=== PATIENT | male | born 1930 | race Caucasian/White ===

== ENCOUNTER 2016-08-11 15:33 | Emergency (ER) | payer MEDICARE, BC ==
[~2016-08-11] VITALS: Ht 170.2 cm; Wt 106.8 kg
[~2016-08-11 15:33] MED LIST: AMLOPIDINE PO; ANUSOL-HC SUPPO25 MG RC; ASPIR-LOW81 MG PO; ASPIRIN 32325 MG/TAB; ASPIRIN 81M81 MG/TA2 PO; BACTRIM 400 MG-1 TAB PO; CELEBREX 200MG200 MG PO; COUMADIN 22.5 MG/TAB; COUMADIN 22.5 MG/TAB PO; COUMADIN 5MG5 MG/TAB PO; COZAAR 50MG50 MG/TAB PO; COZAAR100 MG PO; FLONASE NASAL S16 GM NS; K-LOR CON PO; LASIX 40MG TABL40 MG PO; LORTAB 7.5/5001 TAB PO; MULTIPLE VITAMI1 TAB PO; MVI PO; NASONEX0.05 MG/AC NS; NORCO 325 MG-7.1 TAB; NORMODYNE100 MG PO; NORVASC 5MG5 MG/TAB PO; PACERONE100 MG PO; PACERONE200 MG PO; PIROXICAM PO; PRIL40; PRILOSEC 20MG20 MG PO; ROXICODONE 55 MG/TAB; TYLENOL #3 301 UDTAB PO
[2016-08-11 15:38] VITALS: TEMP 98.1
[2016-08-11 16:13] LABS: BASO # 0.1 (0.0-0.2); BASO % 0.6 % (0.0-2.0); EOS # 0.2 (0.0-0.7); EOS % 1.7 % (0-4.0); GRAN # 8.5 (1.4-6.5); GRAN % 78.4 % (42.2-75.2); HEMATOCRIT 45.6 % (42.0-52.0); HEMOGLOBIN 15.3 g/dl (13.5-18.0); LYMPH # 1.2 (1.2-3.4); LYMPH % 11.1 % (20.0-51.0); MEAN CELL VOLUME 96 fl (80.0-100.0); MEAN CORPUSCULAR HEMOGLOBIN 32 pg (27.0-31.0); MEAN CORPUSCULAR HGB CONC 34 g/dl (33.0-37.0); MEAN PLATELET VOLUME 11.3 fl (7.4-10.4); MONO # 0.8 (0.1-0.6); MONO % 7.5 % (1.7-9.3); PLATELET COUNT 137 K/mm3 (130-400); RED BLOOD COUNT 4.74 M/mm3 (4.20-5.60); REDCELL DISTRIBUTION WIDTH-CV 13.1 % (11.5-14.5); WHITE BLOOD COUNT 10.9 K/mm3 (4.8-10.8)
[2016-08-11 16:15] LABS: INR 2.3 (0.8-3.0); PROTHROMBIN TIME 26.1 SECONDS (9.7-12.8)
[2016-08-11 16:24] LABS: ALBUMIN 4.1 gm/dL (3.5-5.0); BILIRUBIN,TOTAL 1.3 mg/dL (0.0-1.0); CALCIUM 9.1 mg/dL (8.4-10.2); CREATININE, serum 1.49 mg/dL (0.66-1.25); POTASSIUM 4.3 mmol/L (3.4-5.0); TOTAL PROTEIN 7.1 gm/dL (6.4-8.2)
[2016-08-11 16:36] LABS: TROPONIN-I 0.033 ng/mL (0.000-0.034)
[2016-08-11] MEDS ORDERED: NORVASC 5MG5 MG/TAB PO (17:21)
[2016-08-11] MEDS ORDERED: CORDARONE200 MG/TAB PO (17:21)
[2016-08-11] MEDS ORDERED: ZYRTEC 10MG10 MG PO (17:22)
[2016-08-11] MEDS ORDERED: TRANDATE 200MG200 MG PO (17:23)
[2016-08-11] MEDS ORDERED: KLOR-CON M2020 MEQ PO (17:23)
[2016-08-11] MEDS ORDERED: COZAAR 50MG50 MG/TAB PO (17:24)
[2016-08-11] MEDS ORDERED: PROAIR HFA0.09 MG/AC IH (17:24)
[2016-08-11] MEDS ORDERED: SINGULAIR 110 MG/TAB PO (17:24)
[2016-08-11] MEDS ORDERED: SYNTHROID0.05 MG/TA PO (17:24)
[2016-08-11] MEDS ORDERED: FLOMAX 0.40.4 MG/CAP PO (17:25)
[2016-08-11] MEDS ORDERED: DEMADEX 20MG20 M1 PO (17:25)
[2016-08-11] MEDS ORDERED: COUMADIN 22.5 MG/TAB PO (17:26)
[2016-08-11 18:05] VITALS: BP 145/66; PULSE 66
== END 2016-08-11 18:34 | disposition home or self-care (01) ==
LOC: COL.ER 15:33
PROVIDERS: Emergency Medicine
DX: S20.211A Contusion of right front wall of thorax, initial encounter (principal); S70.02XA Contusion of left hip, initial encounter; S80.02XA Contusion of left knee, initial encounter; S60.511A Abrasion of right hand, initial encounter; I10 Essential (primary) hypertension; M19.90 Unspecified osteoarthritis, unspecified site; I48.91 Unspecified atrial fibrillation; Z79.01 Long term (current) use of anticoagulants; Z95.0 Presence of cardiac pacemaker; Z95.4 Presence of other heart-valve replacement; Z96.652 Presence of left artificial knee joint; V43.52XA Car driver injured in collision with other type car in traffic accident, initial encounter; Y93.I9 Activity, other involving external motion
CPT/HCPCS: A9284; J2270; Q9967

== ENCOUNTER → 2016-08-19 | Outpatient (CLI) | payer MEDICARE, BC ==
[~2016-08-19] MED LIST changes: +BROVANA15 MCG/2 M IH; +CLEOCIN HCL300 MG PO; +CORDARONE200 MG/TAB PO; +DEMADEX 20MG20 M1 PO; +DOXYCYCLINE 10100 MG PO; +FLOMAX 0.40.4 MG/CAP PO; +KLOR-CON M2020 MEQ PO; +MULTIVITAMIN SEN; +NORCO 325 MG-51 TAB PO; +PROAIR HFA0.09 MG/AC IH; +SINGULAIR 110 MG/TAB PO; +SYNTHROID0.05 MG/TA PO; +TRANDATE 200MG200 MG PO; +ZYRTEC 10MG10 MG PO
== END ==
LOC: COL.VAS 11:01
DX: M79.89 Other specified soft tissue disorders (principal)

== ENCOUNTER 2016-08-21 10:45 | Inpatient (IN) | payer OTHER, MEDICARE, BC ==
[~2016-08-21] VITALS: Ht 170.2 cm; Wt 100.7 kg
[~2016-08-21 10:45] MED LIST changes: -BROVANA15 MCG/2 M IH; -CLEOCIN HCL300 MG PO; -DOXYCYCLINE 10100 MG PO; -MULTIVITAMIN SEN; -NORCO 325 MG-51 TAB PO
[2016-08-21 12:18] VITALS: BP 101/50; PULSE 60; TEMP 98
[2016-08-21] MEDS ORDERED: MULTIVITAMIN SEN (12:19)
[2016-08-21] MEDS ORDERED: ASPIRIN 81M81 MG/TA2 PO (12:19)
[2016-08-21] MEDS ORDERED: BROVANA15 MCG/2 M IH (12:20)
[2016-08-21] MEDS ORDERED: FLONASE NASAL S16 GM NS (12:21)
[2016-08-21] MEDS ORDERED: NORCO 325 MG-51 TAB PO (12:23)
[2016-08-21 16:00] VITALS: BP 109/41; PULSE 62; TEMP 98.1
[2016-08-21 16:22] LABS: BASO % 0.5 % (0.0-2.0); EOS # 0.3 (0.0-0.7); EOS % 3.1 % (0-4.0); GRAN # 6.1 (1.4-6.5); GRAN % 70.5 % (42.2-75.2); LYMPH # 1.2 (1.2-3.4); LYMPH % 13.7 % (20.0-51.0); MEAN CELL VOLUME 97 fl (80.0-100.0); MEAN CORPUSCULAR HGB CONC 34 g/dl (33.0-37.0); MEAN PLATELET VOLUME 10.8 fl (7.4-10.4); MONO % 11.7 % (1.7-9.3); PLATELET COUNT 168 K/mm3 (130-400); RED BLOOD COUNT 3.48 M/mm3 (4.20-5.60); REDCELL DISTRIBUTION WIDTH-CV 13.3 % (11.5-14.5); WHITE BLOOD COUNT 8.6 K/mm3 (4.8-10.8)
[2016-08-21 16:29] LABS: HEMATOCRIT 33.7 % (42.0-52.0); HEMOGLOBIN 11.3 g/dl (13.5-18.0); MEAN CORPUSCULAR HEMOGLOBIN 32 pg (27.0-31.0)
[2016-08-21 16:32] LABS: INR 4.4 (0.8-3.0)
[2016-08-21 16:38] LABS: ADJUSTED CALCIUM 8.7 mg/dL (8.4-10.2); ALBUMIN 3.4 gm/dL (3.5-5.0); BILIRUBIN,TOTAL 1.3 mg/dL (0.0-1.0); CALCIUM 8.2 mg/dL (8.4-10.2); CREATININE, serum 2.31 mg/dL (0.66-1.25); POTASSIUM 4.5 mmol/L (3.4-5.0); TOTAL PROTEIN 6.3 gm/dL (6.4-8.2)
[2016-08-21 16:51] LABS: PROTHROMBIN TIME 51.6 SECONDS (9.7-12.8)
[2016-08-21 16:52] LABS: TROPONIN-I 0.046 ng/mL (0.000-0.034)
[2016-08-21 19:17] VITALS: BP 127/50; PULSE 60; TEMP 98.6
[2016-08-21 22:33] VITALS: BP 129/52; PULSE 63; TEMP 98.5
[2016-08-22 02:27] VITALS: BP 133/55; PULSE 71; TEMP 97.7
[2016-08-22 07:05] LABS: MEAN CELL VOLUME 99 fl (80.0-100.0); MEAN CORPUSCULAR HGB CONC 33 g/dl (33.0-37.0); MEAN PLATELET VOLUME 10.8 fl (7.4-10.4); PLATELET COUNT 163 K/mm3 (130-400); RED BLOOD COUNT 3.45 M/mm3 (4.20-5.60); REDCELL DISTRIBUTION WIDTH-CV 13.3 % (11.5-14.5); WHITE BLOOD COUNT 7.2 K/mm3 (4.8-10.8)
[2016-08-22 07:06] LABS: INR 4.7 (0.8-3.0)
[2016-08-22 07:07] LABS: HEMOGLOBIN 11.3 g/dl (13.5-18.0); MEAN CORPUSCULAR HEMOGLOBIN 33 pg (27.0-31.0)
[2016-08-22 07:11] LABS: PROTHROMBIN TIME 54.7 SECONDS (9.7-12.8)
[2016-08-22 07:27] LABS: CREATININE, serum 2.05 mg/dL (0.66-1.25); POTASSIUM 4.1 mmol/L (3.4-5.0)
[2016-08-22 08:02] VITALS: BP 128/61; PULSE 77; TEMP 98
[2016-08-22 12:21] VITALS: BP 112/50; PULSE 59; TEMP 97.5
[2016-08-22 16:08] VITALS: BP 119/45; PULSE 62; TEMP 98.2
[2016-08-22 19:37] VITALS: BP 150/59; PULSE 68; TEMP 98.2
[2016-08-22 22:38] VITALS: BP 126/50; PULSE 66; TEMP 98.9
[2016-08-23 03:17] VITALS: BP 134/55; PULSE 65; TEMP 98.4
[2016-08-23 03:36] LABS: MEAN CELL VOLUME 98 fl (80.0-100.0); MEAN CORPUSCULAR HGB CONC 33 g/dl (33.0-37.0); MEAN PLATELET VOLUME 10.3 fl (7.4-10.4); PLATELET COUNT 163 K/mm3 (130-400); RED BLOOD COUNT 3.56 M/mm3 (4.20-5.60); REDCELL DISTRIBUTION WIDTH-CV 13.2 % (11.5-14.5); WHITE BLOOD COUNT 8.4 K/mm3 (4.8-10.8)
[2016-08-23 03:41] LABS: HEMATOCRIT 34.9 % (42.0-52.0); HEMOGLOBIN 11.6 g/dl (13.5-18.0); MEAN CORPUSCULAR HEMOGLOBIN 33 pg (27.0-31.0)
[2016-08-23 04:03] LABS: CALCIUM 8.1 mg/dL (8.4-10.2); CREATININE, serum 1.59 mg/dL (0.66-1.25); POTASSIUM 4.3 mmol/L (3.4-5.0)
[2016-08-23 04:08] LABS: VANCOMYCIN TROUGH 18.66 ug/mL (7.00-20.00)
[2016-08-23 07:57] VITALS: BP 111/62; PULSE 65; TEMP 98.1
[2016-08-23 10:22] LABS: INR 3.2 (0.8-3.0); PROTHROMBIN TIME 37.2 SECONDS (9.7-12.8)
[2016-08-23 11:18] VITALS: BP 119/47; PULSE 60; TEMP 98.7
[2016-08-23 16:29] VITALS: BP 127/51; PULSE 66; TEMP 98.1
[2016-08-23 19:33] VITALS: BP 128/52; PULSE 69; TEMP 98.3
[2016-08-23 23:10] VITALS: BP 110/51; PULSE 59; TEMP 98.5
[2016-08-24 03:18] VITALS: BP 121/59; PULSE 76; TEMP 98.7
[2016-08-24 07:05] LABS: BASO % 0.5 % (0.0-2.0); EOS # 0.3 (0.0-0.7); EOS % 3.2 % (0-4.0); GRAN # 5.9 (1.4-6.5); GRAN % 73.3 % (42.2-75.2); LYMPH % 12.1 % (20.0-51.0); MEAN CELL VOLUME 98 fl (80.0-100.0); MEAN CORPUSCULAR HEMOGLOBIN 33 pg (27.0-31.0); MEAN CORPUSCULAR HGB CONC 33 g/dl (33.0-37.0); MEAN PLATELET VOLUME 10.5 fl (7.4-10.4); MONO # 0.8 (0.1-0.6); MONO % 10.4 % (1.7-9.3); PLATELET COUNT 194 K/mm3 (130-400); RED BLOOD COUNT 3.69 M/mm3 (4.20-5.60); REDCELL DISTRIBUTION WIDTH-CV 13.1 % (11.5-14.5)
[2016-08-24 07:24] LABS: CALCIUM 8.4 mg/dL (8.4-10.2); CREATININE, serum 1.59 mg/dL (0.66-1.25); POTASSIUM 3.5 mmol/L (3.4-5.0)
[2016-08-24 07:43] VITALS: BP 138/57; PULSE 78; TEMP 98
[2016-08-24] MEDS ORDERED: NORMODYNE100 MG PO (10:01)
[2016-08-24] MEDS ORDERED: DOXYCYCLINE 10100 MG PO ×2 (10:01→13:13)
[2016-08-24 11:08] LABS: INR 2.7 (0.8-3.0); PROTHROMBIN TIME 30.8 SECONDS (9.7-12.8)
[2016-08-24 11:29] VITALS: BP 105/50; PULSE 60; TEMP 97.9
[2016-08-24] MEDS ORDERED: COUMADIN 22.5 MG/TAB PO (11:52)
[2016-08-24] MEDS ORDERED: CLEOCIN HCL300 MG PO (11:53)
== END 2016-08-24 15:10 | disposition home or self-care (01) | DRG 603 ==
LOC: MEDICAL 10:45
PROVIDERS: Internal Medicine
DX: L03.116 Cellulitis of left lower limb (principal); J96.11 Chronic respiratory failure with hypoxia; N17.9 Acute kidney failure, unspecified; E87.1 Hypo-osmolality and hyponatremia; I87.8 Other specified disorders of veins; I10 Essential (primary) hypertension; J44.9 Chronic obstructive pulmonary disease, unspecified; G47.33 Obstructive sleep apnea (adult) (pediatric); R07.89 Other chest pain; E86.1 Hypovolemia; Z95.0 Presence of cardiac pacemaker; Z95.2 Presence of prosthetic heart valve; Z96.653 Presence of artificial knee joint, bilateral; S80.02XD Contusion of left knee, subsequent encounter; V43.52XD Car driver injured in collision with other type car in traffic accident, subsequent encounter; Z79.01 Long term (current) use of anticoagulants
CPT/HCPCS: 99223-AI; 99233-AI; 99239; J1940; J3370; J7030; J7050

== ENCOUNTER 2018-10-08 09:43 | Inpatient (IN) | payer MEDICARE, BC ==
[~2018-10-08] VITALS: Ht 170.2 cm; Wt 106.5 kg
[~2018-10-08 09:43] MED LIST changes: +BROVANA15 MCG/2 M IH; +CLEOCIN HCL300 MG PO; +DOXYCYCLINE 10100 MG PO; +MULTIVITAMIN SEN; +NORCO 325 MG-51 TAB PO; +TRANDATE 100MG100 MG PO
[2018-10-08 10:14] LABS: BASO # 0.1 (0.0-0.2); BASO % 0.7 % (0.0-2.0); EOS # 0.3 (0.0-0.7); EOS % 3.6 % (0-4.0); GRAN # 4.8 (1.4-6.5); GRAN % 70.2 % (42.2-75.2); HEMOGLOBIN 11.5 g/dl (13.5-18.0); LYMPH # 0.9 (1.2-3.4); LYMPH % 13.4 % (20.0-51.0); MEAN CELL VOLUME 100 fl (80.0-100.0); MEAN CORPUSCULAR HEMOGLOBIN 32 pg (27.0-31.0); MEAN CORPUSCULAR HGB CONC 32 g/dl (33.0-37.0); MEAN PLATELET VOLUME 11.2 fl (7.4-10.4); MONO # 0.8 (0.1-0.6); MONO % 11.8 % (1.7-9.3); PLATELET COUNT 152 K/mm3 (130-400); RED BLOOD COUNT 3.61 M/mm3 (4.20-5.60); REDCELL DISTRIBUTION WIDTH-CV 14.6 % (11.5-14.5)
[2018-10-08 10:15] LABS: INR 1.6 (0.8-3.0)
[2018-10-08 10:18] LABS: PARTIAL THROMBOPLASTIN TIME 37.8 SECONDS (26.0-37.0)
[2018-10-08 10:19] LABS: ALBUMIN 3.6 gm/dL (3.5-5.0); CALCIUM 8.9 mg/dL (8.4-10.2); CREATININE, serum 1.94 (0.66-1.25); POTASSIUM 3.9 mmol/L (3.4-5.0); TOTAL PROTEIN 6.6 gm/dL (6.4-8.2)
[2018-10-08 10:31] LABS: TROPONIN-I 0.025 ng/mL (0.000-0.035)
--- NOTE | 2018-10-08 14:20 | NUR ---
PATIENT ORIENTED TO ROOM 312. HE WILL CALL FOR ASSISTANCE. I DID PUT BED ALARM ON JUST TO VERIFY HIM TO CALL
[2018-10-08 14:24] VITALS: BP 130/57; PULSE 60; TEMP 98
[2018-10-08 16:00] VITALS: BP 141/59; PULSE 61; TEMP 98.3
[2018-10-08 20:07] VITALS: BP 119/50; PULSE 60; TEMP 98.2
--- NOTE | 2018-10-08 20:50 | NUR ---
PT SITTING IN CHAIR. A+OX4. REPORTS MINIMAL PAIN. BOWEL SOUNDS HEARD THROUGHOUT. NORMAL HEART RRR. LEFT LUNG BASE- FINE CRACKLES. RIGHT LUNG BASE COURSE CRACKLES. UPPER LUNGS CLEAR. NO SOA AT THIS TIME. NO N/V. 3+ PITTING EDEMA IN BILAT LEGS. BLUE/RED DISCOLORATION NOTED ON BILAT SHINS/CALVES- PT "NORMAL". FEET ARE ELEVATED. FLUID RESTRICTION IN PLACE. REPORTS NO NEEDS AT THIS TIME. CALL LIGHT IN REACH
--- NOTE | 2018-10-08 22:09 | NUR ---
IV FLUSHES WELL, NO REDNESS, NO SWELLING.
[2018-10-08 23:48] VITALS: BP 120/59; PULSE 60; TEMP 97.4
[2018-10-09 03:33] VITALS: BP 128/62; PULSE 58; TEMP 97.9
[2018-10-09 07:01] LABS: BASO # 0.1 (0.0-0.2); BASO % 0.8 % (0.0-2.0); EOS # 0.3 (0.0-0.7); GRAN % 66.3 % (42.2-75.2); HEMOGLOBIN 11.7 g/dl (13.5-18.0); LYMPH # 1.3 (1.2-3.4); LYMPH % 17.4 % (20.0-51.0); MEAN CELL VOLUME 99 fl (80.0-100.0); MEAN CORPUSCULAR HEMOGLOBIN 32 pg (27.0-31.0); MEAN CORPUSCULAR HGB CONC 32 g/dl (33.0-37.0); MEAN PLATELET VOLUME 11.6 fl (7.4-10.4); MONO # 0.8 (0.1-0.6); MONO % 11.1 % (1.7-9.3); PLATELET COUNT 156 K/mm3 (130-400); RED BLOOD COUNT 3.71 M/mm3 (4.20-5.60); REDCELL DISTRIBUTION WIDTH-CV 14.6 % (11.5-14.5)
[2018-10-09 07:07] LABS: INR 1.7 (0.8-3.0); PROTHROMBIN TIME 20.1 SECONDS (9.7-12.8)
[2018-10-09 07:11] VITALS: BP 126/54; PULSE 59; TEMP 98.1
[2018-10-09 07:11] LABS: HEMATOCRIT 36.7 % (42.0-52.0)
[2018-10-09 07:13] LABS: CREATININE, serum 1.87 (0.66-1.25); MAGNESIUM 2.3 mg/dL (1.6-2.3); POTASSIUM 3.7 mmol/L (3.4-5.0)
[2018-10-09 07:22] LABS: TROPONIN-I 0.027 ng/mL (0.000-0.035)
--- NOTE | 2018-10-09 07:25 | NUR ---
pt had an uneventful night. reported nausea at 0550- prn zofran ordered and given. left AC IV DC d/t leaking. catheter tip intact. new iv started to the right hand. flushes well, no redness, no swelling. right lower lung lobe coarse crackles. left lower lobe fine crackles. upper lobes clear. abd sounds heard throughout. tele on. no needs at this time. call light in reach.
--- NOTE | 2018-10-09 09:50 | NUR ---
PATIENT COMPLETED HE HAS ATE BREAKFAST AND IS SLEEPING. HE EASILY ARROUSES TO VERBAL STIMULI. NO COMPLAINTS OR NEEDS EXPRESSED AT THIS TIME
[2018-10-09 11:10] VITALS: BP 116/60; PULSE 57; TEMP 97.8
--- NOTE | 2018-10-09 14:36 | NUR ---
SW attempted to meet with the patient; pt was not available. SW to attempt at a later time.
[2018-10-09 16:43] VITALS: BP 121/48; PULSE 59; TEMP 97.5
[2018-10-09 19:14] VITALS: BP 117/53; PULSE 59; TEMP 97.8
--- NOTE | 2018-10-09 21:45 | NUR ---
Pt sitting up in chair watching TV. HS meds given and assessment completed. On 2L O2/NC. Bilat LE darker color, dry and scaly with RLE 2-3+ edema and LLE with 1-2+ edema. Bilat LE firm to touch. Pulses palpable. Denies pain at this time.
[2018-10-10 00:10] VITALS: BP 108/62; PULSE 59; TEMP 97.3
[2018-10-10 04:31] VITALS: BP 118/54; PULSE 60; TEMP 97.7
[2018-10-10 06:18] LABS: INR 1.9 (0.8-3.0); PROTHROMBIN TIME 23.1 SECONDS (9.7-12.8)
[2018-10-10 06:25] LABS: CREATININE, serum 1.96 (0.66-1.25); POTASSIUM 3.8 mmol/L (3.4-5.0)
[2018-10-10 07:51] VITALS: BP 134/53; PULSE 60; TEMP 97.6
--- NOTE | 2018-10-10 08:07 | NUR ---
Pt slept with c-pap on thru the night. No c/o discomfort. Takes medication with no difficulty. Report given to HARISH Yao.
--- NOTE | 2018-10-10 09:08 | NUR ---
Assessment completed, alert/oriented, vital signs stable, denies pain this morning, stated he feels like his breathing is easier, nurse reports diuresing well with the IV lasix he was given, enforcing 1.5L fluid restriction, kidney function staying about the same / Creat 1.9, lungs are CTA/ diminished in his bases, BLE 1-2+ edema/ he reports this is baseline swelling for him, legs dry/scaly, heart RRR/ distal pulses are palapble, he is sitting in the chair eating breakfast, denies other needs at [facility]
--- NOTE | 2018-10-10 10:36 | NUR ---
GUNNER met with the patient to discuss a discharge plan. The pt lives alone in [place]. The pt has a walker in case he needs it and reports independence with ADLs. The pt reports he did see Dr. Lopez and has not gone to see another physician since she left. 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 The [facility] with no difficulties. The pt does have advanced directives in the EMR. The pt plans to return home upon discharge. There are no additional needs at this time.
--- NOTE | 2018-10-10 11:27 | NUR ---
Home health with physical therapy and nursing is recommended for the patient. GUNNER presented the patient with the Medicare.gov list of agencies that serve [place]. Patient chose [facility]. GUNNER faxed referral to [facility] and contacted Lacy. MARTINO awaiting response.
[2018-10-10 11:30] VITALS: BP 121/57; PULSE 60; TEMP 97.3
--- NOTE | 2018-10-10 13:00 | NUR ---
Discharge orders reviewed with the patient, insturcted to follow up as scheduled, instructed to HOLD Losartan for now, instructed to retrict fluid intake to 1.5 liter per day, IV and tele removed, leaving with family/friend ,CUSTOM WOOD STAIR BUILDER escorted them out the door
--- NOTE | 2018-10-11 10:56 | NUR ---
Allison from [facility] reports they can accept the patient for services. Dr. Washburn will follow. There are no additional needs at this time.
== END 2018-10-10 13:01 | disposition home health service (06) | DRG 315 ==
LOC: COL.ER 09:43 → MEDICAL 11:01
PROVIDERS: Emergency Medicine; Nurse Practitioner Family; ADMIT Hospitalist
DX: T82.857A Stenosis of other cardiac prosthetic devices, implants and grafts, initial encounter (principal); J90 Pleural effusion, not elsewhere classified; J96.10 Chronic respiratory failure, unspecified whether with hypoxia or hypercapnia; N17.9 Acute kidney failure, unspecified; J44.9 Chronic obstructive pulmonary disease, unspecified; G47.33 Obstructive sleep apnea (adult) (pediatric); M19.90 Unspecified osteoarthritis, unspecified site; E03.9 Hypothyroidism, unspecified; I73.9 Peripheral vascular disease, unspecified; I48.91 Unspecified atrial fibrillation; Z96.653 Presence of artificial knee joint, bilateral; E87.70 Fluid overload, unspecified; R79.1 Abnormal coagulation profile; I27.20 Pulmonary hypertension, unspecified; I08.2 Rheumatic disorders of both aortic and tricuspid valves; Y83.2 Surgical operation with anastomosis, bypass or graft as the cause of abnormal reaction of the patient, or of later complication, without mention of misadventure at the time of the procedure; Z95.0 Presence of cardiac pacemaker; Z99.81 Dependence on supplemental oxygen; Z79.01 Long term (current) use of anticoagulants; Z79.82 Long term (current) use of aspirin; Z88.8 Allergy status to other drugs, medicaments and biological substances; Z88.1 Allergy status to other antibiotic agents; I12.9 Hypertensive chronic kidney disease with stage 1 through stage 4 chronic kidney disease, or unspecified chronic kidney disease; N18.9 Chronic kidney disease, unspecified
CPT/HCPCS: 99222-AI; 99232-AI; 99239; J1650; J1940; J2405

== ENCOUNTER 2018-11-10 13:38 | Inpatient (IN) | payer MEDICARE, BC ==
[~2018-11-10] VITALS: Ht 170.2 cm; Wt 100.4 kg
[2018-11-10] MEDS ORDERED: DEMADEX 20MG20 M1 PO (14:02)
[2018-11-10 14:27] LABS: BASO % 0.5 % (0.0-2.0); EOS # 0.3 (0.0-0.7); EOS % 3.5 % (0-4.0); GRAN # 5.5 (1.4-6.5); GRAN % 72.1 % (42.2-75.2); HEMATOCRIT 39.7 % (42.0-52.0); HEMOGLOBIN 12.5 g/dl (13.5-18.0); LYMPH % 13.4 % (20.0-51.0); MEAN CELL VOLUME 102 fl (80.0-100.0); MEAN CORPUSCULAR HEMOGLOBIN 32 pg (27.0-31.0); MEAN CORPUSCULAR HGB CONC 32 g/dl (33.0-37.0); MEAN PLATELET VOLUME 11.5 fl (7.4-10.4); MONO # 0.8 (0.1-0.6); MONO % 10.1 % (1.7-9.3); PLATELET COUNT 148 K/mm3 (130-400); RED BLOOD COUNT 3.91 M/mm3 (4.20-5.60); REDCELL DISTRIBUTION WIDTH-CV 15.1 % (11.5-14.5)
[2018-11-10 14:31] LABS: INR 3.9 (0.8-3.0)
[2018-11-10 14:33] LABS: PROTHROMBIN TIME 47.6 SECONDS (9.7-12.8)
[2018-11-10 14:44] LABS: ARTERIAL BLD GAS O2 SATURATION 96.9 % (92-100); ARTERIAL BLD GAS TCO2 CT 25.7; ARTERIAL BLOOD GAS BASE EXCESS -1.9 (-2-2); ARTERIAL BLOOD GAS HCO3 24.2 meq/L (22-26); ARTERIAL BLOOD GAS PCO2 46.6 mmHg (35-45); ARTERIAL BLOOD GAS pH 7.33 (7.35-7.45)
[2018-11-10 14:50] LABS: ALBUMIN 3.8 gm/dL (3.5-5.0); BILIRUBIN,TOTAL 1.3 mg/dL (0.0-1.0); CALCIUM 9.1 mg/dL (8.4-10.2); CREATININE, serum 2.53 (0.66-1.25); TOTAL PROTEIN 6.9 gm/dL (6.4-8.2)
[2018-11-10 15:01] LABS: TROPONIN-I 0.034 ng/mL (0.000-0.035)
[2018-11-10 17:12] VITALS: BP 128/56; PULSE 60; TEMP 97.8
[2018-11-10] MEDS ORDERED: ASPIRIN 81M81 MG/TA2 PO (17:30)
--- NOTE | 2018-11-10 17:31 | NUR ---
Pt arrived to room 356 at this time. He is A/O x3. Pt has SOB at rest, but O2 sat 94% on RA. Pt denies any pain. Dressing in place to LLE, BLE edema present. See assessment. POC discussed with patient who verbalizes understanding. No needs at this time call light within reach.
--- NOTE | 2018-11-10 18:50 | NUR ---
Pt had been unable to pee since Lasix administration. Bladder scan revealed 730mls, pt up to the toilet and urinated 500mls. No needs at this time. Call light within reach.
[2018-11-10 19:27] VITALS: BP 138/64; PULSE 60; TEMP 97.9
[2018-11-11] VITALS (7 sets, daily range): BP systolic 119–128; BP diastolic 52–59; PULSE 59–60; TEMP 97.5–98.1
[2018-11-11 06:52] LABS: BASO # 0.1 (0.0-0.2); BASO % 0.7 % (0.0-2.0); EOS # 0.3 (0.0-0.7); GRAN # 5.8 (1.4-6.5); GRAN % 72.1 % (42.2-75.2); HEMOGLOBIN 12.6 g/dl (13.5-18.0); MEAN CELL VOLUME 100 fl (80.0-100.0); MEAN CORPUSCULAR HEMOGLOBIN 31 pg (27.0-31.0); MEAN CORPUSCULAR HGB CONC 32 g/dl (33.0-37.0); MEAN PLATELET VOLUME 11.4 fl (7.4-10.4); MONO # 0.9 (0.1-0.6); MONO % 10.8 % (1.7-9.3); PLATELET COUNT 160 K/mm3 (130-400); RED BLOOD COUNT 4.02 M/mm3 (4.20-5.60); REDCELL DISTRIBUTION WIDTH-CV 14.7 % (11.5-14.5)
[2018-11-11 07:06] LABS: CALCIUM 9.2 mg/dL (8.4-10.2); CREATININE, serum 2.35 (0.66-1.25); POTASSIUM 3.8 mmol/L (3.4-5.0)
[2018-11-11 07:13] LABS: INR 3.7 (0.8-3.0)
[2018-11-11 07:15] LABS: PROTHROMBIN TIME 45.2 SECONDS (9.7-12.8)
[2018-11-11] MEDS ORDERED: COZAAR 50MG50 MG/TAB PO (12:04)
[2018-11-11] MEDS ORDERED: MULTI VITAMINS1 TAB PO (12:06)
--- NOTE | 2018-11-11 15:24 | NUR ---
fabric worker foreman met with patient and contacted daughter/durable power of employee benefits attorney for health care, Vanessa Nunez #[phone] to discuss discharge planning. Patient lives in his home, and has been in skilled care at [facility]. Patient was recently hospitalized at [facility] and then transfered to skilled care at [facility] on 11/03/18. Patient and Vanessa both agree that patient will return to [facility] and are aware of possible transfer on Wednesday. Worker collaborated with Dr Roth regarding the above information. Vanessa plans to be present during rounds on Wednesday to meet with Dr Roth. Worker contacted Gauri at [facility] and confirmed that patient can return to skilled care. Worker faxed clinical information to [facility]. Choice form completed. Patient's primary care provider was Dr Lopez( who has left the practice) and patient states they haven't chosen another provider from that practice. Patient's durable power of employee benefits attorney is in the electronic record.
[2018-11-11 18:30] LABS: FOLATE (FOLIC ACID) 17.8 ng/mL (7.0-31.4)
--- NOTE | 2018-11-11 18:57 | NUR ---
Report given to oncoming shift. Patient is in recliner with personal items within reach.
--- NOTE | 2018-11-11 20:00 | NUR ---
Report received. Assumed care for national account manager. Assessment complete. VS stable. Denies pain. States he is short of breath with activity. Pursed lip breathing. O2 sat 97% on room air. INT to right AC flushes without difficulty. Plan of care discussed for this shift. Noted to have dressing to left lower [id number] like area-dressing C/D/I. Denies needs. Instructed to call for assistance with bipap when ready. Call light in reach. Sitting up in chair. Will monitor.
[2018-11-12 04:00] VITALS: BP 116/58; PULSE 58; TEMP 97
--- NOTE | 2018-11-12 05:00 | NUR ---
Sitting up in chair watching TV. Denies pain. VS have remained stable. No c/o at this time. Call light in reach. Will monitor.
[2018-11-12 07:14] LABS: BASO # 0.1 (0.0-0.2); BASO % 0.6 % (0.0-2.0); EOS # 0.3 (0.0-0.7); HEMATOCRIT 39.7 % (42.0-52.0); HEMOGLOBIN 12.3 g/dl (13.5-18.0); LYMPH % 11.8 % (20.0-51.0); MEAN CELL VOLUME 100 fl (80.0-100.0); MEAN CORPUSCULAR HEMOGLOBIN 31 pg (27.0-31.0); MEAN CORPUSCULAR HGB CONC 31 g/dl (33.0-37.0); MEAN PLATELET VOLUME 11.5 fl (7.4-10.4); MONO # 0.9 (0.1-0.6); MONO % 10.4 % (1.7-9.3); PLATELET COUNT 148 K/mm3 (130-400); RED BLOOD COUNT 3.99 M/mm3 (4.20-5.60); REDCELL DISTRIBUTION WIDTH-CV 14.6 % (11.5-14.5)
[2018-11-12 07:19] LABS: PROTHROMBIN TIME 35.7 SECONDS (9.7-12.8)
[2018-11-12 07:28] LABS: ALBUMIN 3.8 gm/dL (3.5-5.0); BILIRUBIN,TOTAL 1.5 mg/dL (0.0-1.0); CALCIUM 9.2 mg/dL (8.4-10.2); CREATININE, serum 2.08 (0.66-1.25); POTASSIUM 3.5 mmol/L (3.4-5.0); TOTAL PROTEIN 6.7 gm/dL (6.4-8.2)
[2018-11-12 07:43] VITALS: BP 147/56; PULSE 59; TEMP 97.8
--- NOTE | 2018-11-12 08:00 | NUR ---
Patient resting in recliner, rouses easily, is alert and oriented, answers questions appropriately while awake. Dressing to LLE is CDI. Patient denies needs or pain at this time, call light within reach.
[2018-11-12 11:28] VITALS: BP 117/49; PULSE 66; TEMP 97.5
[2018-11-12 16:00] VITALS: BP 126/53; PULSE 58; TEMP 97.8
--- NOTE | 2018-11-12 18:22 | NUR ---
Patient resting in bedside recliner at this time watching television. Patient is alert and oriented, answers questions appropriately. Patient denies pain or further needs, call light within reach,
[2018-11-12 19:27] VITALS: BP 112/51; PULSE 59; TEMP 97.6
[2018-11-13 00:04] VITALS: BP 122/56; PULSE 59; TEMP 97.5
[2018-11-13 04:43] VITALS: BP 119/52; PULSE 59; TEMP 97.7
--- NOTE | 2018-11-13 07:45 | NUR ---
Patient is awake and alert sitting up in recliner. Has already had breakfast. States he has some pain to the back of his left calf. Was offered pain medication and declined. Medications were administered and taken without difficulty. Respirations are even and nonlabored. Call light and personal items are within reach.
[2018-11-13 08:20] LABS: CALCIUM 9.3 mg/dL (8.4-10.2); CREATININE, serum 1.94 (0.66-1.25); POTASSIUM 3.8 mmol/L (3.4-5.0)
[2018-11-13 09:21] VITALS: BP 119/74; PULSE 60; TEMP 97.5
[2018-11-13] MEDS ORDERED: COZAAR 25MG25 MG/TAB PO (10:17)
[2018-11-13] MEDS ORDERED: DEMADEX 20MG20 M1 PO (10:18)
[2018-11-13 11:36] VITALS: BP 113/55; PULSE 61; TEMP 98
--- NOTE | 2018-11-13 11:57 | NUR ---
family assessment worker arranged patient's transfer to [facility] to skilled care today. Awaiting for time of transfer via [facility]. IM obtained. Worker contacted daughter, Vanessa, and advise of discharge today.
--- NOTE | 2018-11-13 12:34 | NUR ---
Patient will transfer to skilled care at [facility] at 1:15 via facility van. Worker notified patient's daughter, Vanessa, of transfer time.
--- NOTE | 2018-11-13 17:36 | NUR ---
Patient discharged to [facility] at 1330. IV and telemetry discontinued. Patient changed and packed [facility] and was taken from room via wheelchair. Report called to facility.
== END 2018-11-13 13:30 | DRG 315 ==
LOC: COL.ER 13:38 → MEDICAL 16:09
PROVIDERS: Family Medicine; Physician Assistant; ADMIT Hospitalist
DX: T82.857A Stenosis of other cardiac prosthetic devices, implants and grafts, initial encounter (principal); J96.10 Chronic respiratory failure, unspecified whether with hypoxia or hypercapnia; I13.0 Hypertensive heart and chronic kidney disease with heart failure and stage 1 through stage 4 chronic kidney disease, or unspecified chronic kidney disease; N17.9 Acute kidney failure, unspecified; E87.0 Hyperosmolality and hypernatremia; E87.3 Alkalosis; J44.9 Chronic obstructive pulmonary disease, unspecified; I48.91 Unspecified atrial fibrillation; M19.90 Unspecified osteoarthritis, unspecified site; E03.9 Hypothyroidism, unspecified; G47.33 Obstructive sleep apnea (adult) (pediatric); I50.9 Heart failure, unspecified; I73.9 Peripheral vascular disease, unspecified; Z96.653 Presence of artificial knee joint, bilateral; N18.3 Chronic kidney disease, stage 3 (moderate); E87.70 Fluid overload, unspecified; I27.20 Pulmonary hypertension, unspecified; I08.3 Combined rheumatic disorders of mitral, aortic and tricuspid valves; D50.9 Iron deficiency anemia, unspecified; T50.1X5A Adverse effect of loop [high-ceiling] diuretics, initial encounter; Z99.81 Dependence on supplemental oxygen; Z95.0 Presence of cardiac pacemaker; Z79.01 Long term (current) use of anticoagulants; Z72.89 Other problems related to lifestyle; Z88.8 Allergy status to other drugs, medicaments and biological substances; Z88.1 Allergy status to other antibiotic agents; N28.9 Disorder of kidney and ureter, unspecified
CPT/HCPCS: 99222-AI; 99231-AI; 99239; J1940

== ENCOUNTER → 2019-02-14 | Outpatient (CLI) | payer MEDICARE, BC ==
[~2019-02-14] MED LIST changes: +COZAAR 25MG25 MG/TAB PO; +MULTI VITAMINS1 TAB PO
== END ==
LOC: COL.VAS 10:57
DX: N18.4 Chronic kidney disease, stage 4 (severe) (principal)
CPT/HCPCS: G0365

== ENCOUNTER → 2020-09-11 | Outpatient (CLI) | payer MEDICARE, BC ==
[~2020-09-11] MED LIST changes: +COUMADIN 2MG2 MG/TAB PO; +COUMADIN 3MG3 MG/TAB PO; +EUTHYROX25 MCG PO; +MAXIPIME2 GM IV; +OMNICEF 300MG300 MG PO
== END ==
LOC: COL.RAD 09:55
DX: Z01.812 Encounter for preprocedural laboratory examination (principal); R93.421 Abnormal radiologic findings on diagnostic imaging of right kidney

== ENCOUNTER 2021-01-07 11:26 | Day surgery (SDC) | payer MEDICARE, BC ==
[~2021-01-07] VITALS: Ht 167.6 cm; Wt 98.0 kg
[~2021-01-07 11:26] MED LIST changes: -COUMADIN 2MG2 MG/TAB PO; -COUMADIN 3MG3 MG/TAB PO; -EUTHYROX25 MCG PO; -MAXIPIME2 GM IV; -OMNICEF 300MG300 MG PO
[2021-01-07 12:10] VITALS: BP 136/72; PULSE 60; TEMP 99.2
[2021-01-07 12:50] VITALS: BP 127/64; PULSE 62; TEMP 96.8
--- NOTE | 2021-01-07 12:54 | NUR ---
1250: Patient arrived back from PACU, report recieved from HARISH Villanueva. Patient reports minimal discomfort. Eyes open to voice. Minimal bleeding around urethra, swolling around scrotum noted. Patient requesting blueberry muffin and water.
[2021-01-07 13:05] VITALS: BP 131/63; PULSE 60
[2021-01-07 13:20] VITALS: BP 122/63; PULSE 60
--- NOTE | 2021-01-07 14:54 | NUR ---
1340: notified Dr. Flynn that patient was unable to void, Dr. Flynn stated to give patient about an hour to void. 1430: Notified Dr. Flynn that patient was unsuccessful in his attempt to void. Recieved order to start pedersen catheter. Make follow up appointment for Wednesday for pedersen removal 1445: Inserted patient pedersen, notified Dr. Flynn of resistance when filling balloon. Dr. Flynn assisted in filling the balloon. Received orders to hand irrigate the pedersen. 1450: Pedersen hand irrigated.
--- NOTE | 2021-01-07 15:09 | NUR ---
NOTIFIED DR. CHAPMAN OF PATIENT RATING PAIN 10/10 TO URTHERAL, BLADDER, PENIAL AREA.
--- NOTE | 2021-01-07 16:29 | NUR ---
1600: Went through discharge instructions with patient, patient displayed teach back method when switching to large drainage bag to leg bag. 1605: Called patient's daughter and let her know that patient ready to discharge. 1610: Went through discharge instructions with patient's daughter, Vanessa, questions answered, verbalized understanding to discharge instructions. 1620: escorted patient to patient entrance where patient's daughter met in personal vehicle.
== END 2021-01-07 16:20 ==
LOC: SDCO 11:26
DX: R39.12 Poor urinary stream (principal); R35.1 Nocturia; G47.33 Obstructive sleep apnea (adult) (pediatric); J44.9 Chronic obstructive pulmonary disease, unspecified; I13.0 Hypertensive heart and chronic kidney disease with heart failure and stage 1 through stage 4 chronic kidney disease, or unspecified chronic kidney disease; I50.9 Heart failure, unspecified; N18.9 Chronic kidney disease, unspecified; E03.9 Hypothyroidism, unspecified; I48.91 Unspecified atrial fibrillation; I08.1 Rheumatic disorders of both mitral and tricuspid valves; N40.0 Benign prostatic hyperplasia without lower urinary tract symptoms; I87.2 Venous insufficiency (chronic) (peripheral); E66.9 Obesity, unspecified; M51.36 Other intervertebral disc degeneration, lumbar region; J30.2 Other seasonal allergic rhinitis; Z79.899 Other long term (current) drug therapy; Z79.890 Hormone replacement therapy; Z95.2 Presence of prosthetic heart valve; Z95.0 Presence of cardiac pacemaker; Z79.01 Long term (current) use of anticoagulants
CPT/HCPCS: J7120; L8699

== ENCOUNTER 2021-02-01 08:05 | Observation (INO) | payer MEDICARE, BC ==
[2021-02-01] VITALS (9 sets, daily range): BP systolic 87–133; BP diastolic 47–85; PULSE 60–61; TEMP 97.7–97.9
[~2021-02-01] VITALS: Ht 167.6 cm; Wt 97.7 kg
[2021-02-01 08:23] LABS: BASO # 0.1 K/mm3 (0.0-0.2); BASO % 0.8 % (0.0-2.0); EOS # 0.3 K/mm3 (0.0-0.7); EOS % 3.4 % (0-4.0); GRAN # 5.4 K/mm3 (1.4-6.5); HEMATOCRIT 40.6 % (42.0-52.0); HEMOGLOBIN 13.7 g/dl (13.5-18.0); LYMPH # 1.9 K/mm3 (1.2-3.4); LYMPH % 21.7 % (20.0-51.0); MEAN CELL VOLUME 94 fl (80.0-100.0); MEAN CORPUSCULAR HEMOGLOBIN 32 pg (27.0-31.0); MEAN CORPUSCULAR HGB CONC 34 g/dl (33.0-37.0); MEAN PLATELET VOLUME 9.9 fl (7.4-10.4); MONO # 0.9 K/mm3 (0.1-0.6); MONO % 10.7 % (1.7-9.3); PLATELET COUNT 204 K/mm3 (130-400); RED BLOOD COUNT 4.33 M/mm3 (4.20-5.60); REDCELL DISTRIBUTION WIDTH-CV 12.5 % (11.5-14.5)
[2021-02-01 08:31] LABS: COLLECTION METHOD CLEAN CATCH
[2021-02-01 08:31] LABS: INR 2.8 (0.8-3.0); PROTHROMBIN TIME 31.4 SECONDS (9.7-12.8)
[2021-02-01 08:54] LABS: PH 6 (5-8); SQUAMOUS EPITHELIAL None Seen /hpf (0-10); URINE APPEARANCE Cloudy (CLEAR/HAZY); URINE BACTERIA None Seen (NONE SEEN); URINE BILIRUBIN Negative (NEGATIVE); URINE BLOOD 3+ (NEGATIVE); URINE COLOR Red (YELLOW); URINE GLUCOSE Negative (NEGATIVE); URINE KETONE Negative (NEGATIVE); URINE LEUKOCYTE ESTERASE 2+ (NEGATIVE); URINE NITRATE Negative (NEGATIVE); URINE PROTEIN(semi-quant) 3+ (NEGATIVE); URINE UROBILINOGEN Negative (NEGATIVE)
[2021-02-01 08:59] LABS: ALBUMIN 3.5 gm/dL (3.4-4.8); BILIRUBIN,TOTAL 0.6 mg/dL (0.2-1.2); CALCIUM 9.3 mg/dL (8.4-10.2); CREATININE, serum 2.52 mg/dL (0.72-1.25); POTASSIUM 4.3 mmol/L (3.5-4.5); TOTAL PROTEIN 7.3 gm/dL (6.2-8.1)
[2021-02-01] MEDS ORDERED: FLOMAX 0.40.4 MG/CAP PO (10:11)
[2021-02-01] MEDS ORDERED: DEMADEX 20MG20 M1 PO (10:11)
[2021-02-01] MEDS ORDERED: EUTHYROX25 MCG PO (10:12)
--- NOTE | 2021-02-01 10:53 | NUR ---
Patient pedersen hand irrigated. Multiple clots obtained. Cbi wide open. Patient in significant pain, called and orders obtained
--- NOTE | 2021-02-01 13:02 | NUR ---
NOTIFIED OF CRITICAL TROP.
--- NOTE | 2021-02-01 18:25 | NUR ---
PT RESTING IN BED. CBI RUNNING. NO COMPLAINTS OF PAIN OR DYSPNEA. NO SIGNS OF DISTRESS. CALL LIGHT WITHIN REACH
--- NOTE | 2021-02-01 19:39 | NUR ---
CHOA Morales notified of Critical troponin.
--- NOTE | 2021-02-01 20:45 | NUR ---
Pt. sitting up in bed watching TV. Pt. is A&OX3, assessment complete. INT to Rt. wrist patent. Pollock catheter to DD, CBI running at a moderate rate. Urine is pink at this time. Pt. denies pain or other needs, call light within reach.
[2021-02-02 00:17] VITALS: BP 114/63; PULSE 62; TEMP 98.3
[2021-02-02 04:49] VITALS: BP 109/72; PULSE 64; TEMP 98.1
[2021-02-02 06:58] LABS: HEMATOCRIT 40.3 % (42.0-52.0); HEMOGLOBIN 13.1 g/dl (13.5-18.0); MEAN CELL VOLUME 98 fl (80.0-100.0); MEAN CORPUSCULAR HEMOGLOBIN 32 pg (27.0-31.0); MEAN CORPUSCULAR HGB CONC 33 g/dl (33.0-37.0); MEAN PLATELET VOLUME 10.7 fl (7.4-10.4); PLATELET COUNT 200 K/mm3 (130-400); RED BLOOD COUNT 4.11 M/mm3 (4.20-5.60); REDCELL DISTRIBUTION WIDTH-CV 12.8 % (11.5-14.5)
[2021-02-02 06:59] LABS: INR 3.1 (0.8-3.0); PROTHROMBIN TIME 34.4 SECONDS (9.7-12.8)
[2021-02-02 07:03] LABS: CALCIUM 8.9 mg/dL (8.4-10.2); CREATININE, serum 2.24 mg/dL (0.72-1.25); POTASSIUM 4.1 mmol/L (3.5-4.5)
--- NOTE | 2021-02-02 08:03 | NUR ---
PT ASSESSED. NO COMPLAINTS OF PAIN OR DYSPNEA. NO SIGNS OF DISTRESS. CALL LIGHT WITHIN REACH. CBI DRAINING DEWITT RED URINE WITH CLOTS.
--- NOTE | 2021-02-02 08:07 | NUR ---
REPORT RECIEVED FROM HARISH MCDANIELS. NO COMPLAINTS OF PAIN OR DYSPNEA. NO SIGNS OR SYMPTOMS OF DISTRESS. PT RESTING IN BED. CALL LIGHT WITHIN REACH
[2021-02-02 08:28] VITALS: BP 108/54; PULSE 63; TEMP 98.4
[2021-02-02 11:44] VITALS: BP 109/50; PULSE 59; TEMP 98.4
--- NOTE | 2021-02-02 13:19 | NUR ---
Carlton met with the pt who stated his preference to return home once medically stable. (daughter vanessa present). The pt lives at home alone. The pt does have a DPOA- HC and is in chart. Vanessa and Nilay are the DPOA. The pt is independent on all ADLS and still drives. The pt uses BIPAP and o2 of 2L concentrator at home. The pt pcp is Dr. Fernandez and get his medications from [facility]. The pt daughter reports that she lives in and that he will need help with transportation or she will try and get a friend to help him. No other needs stated at this time. Sw to await further recommendations D/c: Home, alone.
[2021-02-02 15:12] VITALS: BP 116/54; PULSE 59; TEMP 98.9
--- NOTE | 2021-02-02 18:22 | NUR ---
PT ASSISTED UP TO CHAIR. COMPLAINS OF KNEE PAIN AND REQUESTS HEATING PAD. NO SIGNS OF DISTRESS. PT HAS YET TO VOID POST CATHETER REMOVAL. JASS NOTIFIED. RECOMMENDS LEAVING HIM ALONE UNLESS HE BECOMES UNCOMFORTABLE. NO ORDERS TO BLADDER SCAN OR INTERMITTENT CATHETERIZE. BUT DOES REQUEST BEING KEPT IN THE LOOP. CARDIO CONSULT CALLED IN. REQUEST THAT PT BE NPO. ORDERS PLACED. NO OTHER CONCERNS AT THIS TIME. CALL LIGHT WITHIN REACH
[2021-02-02 19:15] VITALS: BP 144/67; PULSE 76; TEMP 97.8
--- NOTE | 2021-02-02 21:46 | NUR ---
DR. MERAZ IN TO SEE PT.
--- NOTE | 2021-02-02 22:22 | NUR ---
PT BLADDER SCANNED AFTER VOIDING. READING WAS 239 mL.
[2021-02-03 04:00] VITALS: BP 108/56; PULSE 65; TEMP 97.5
--- NOTE | 2021-02-03 06:04 | NUR ---
PT HAS VOIDED 4 TIMES. HE DIDN'T USE URINAL THE FIRST TIME AND WAS INCONTINENT EVERY OTHER TIME. OUTPUT APPEARS TO BE BLOOD TINGED.
[2021-02-03 06:41] LABS: BASO % 0.3 % (0.0-2.0); EOS # 0.1 K/mm3 (0.0-0.7); EOS % 0.4 % (0-4.0); GRAN # 10.4 K/mm3 (1.4-6.5); GRAN % 77.3 % (42.2-75.2); HEMOGLOBIN 12.4 g/dl (13.5-18.0); LYMPH # 1.4 K/mm3 (1.2-3.4); LYMPH % 10.6 % (20.0-51.0); MEAN CELL VOLUME 95 fl (80.0-100.0); MEAN CORPUSCULAR HEMOGLOBIN 32 pg (27.0-31.0); MEAN CORPUSCULAR HGB CONC 34 g/dl (33.0-37.0); MEAN PLATELET VOLUME 10.7 fl (7.4-10.4); MONO # 1.5 K/mm3 (0.1-0.6); PLATELET COUNT 153 K/mm3 (130-400); REDCELL DISTRIBUTION WIDTH-CV 12.7 % (11.5-14.5)
[2021-02-03 06:43] LABS: INR 2.8 (0.8-3.0); PROTHROMBIN TIME 31.9 SECONDS (9.7-12.8)
[2021-02-03 06:53] LABS: CALCIUM 8.7 mg/dL (8.4-10.2); CHOLESTEROL RISK RATIO 2.4; CREATININE, serum 2.05 mg/dL (0.72-1.25); POTASSIUM 3.8 mmol/L (3.5-4.5)
[2021-02-03 07:40] VITALS: BP 123/59; PULSE 61; TEMP 97.6
--- NOTE | 2021-02-03 08:00 | NUR ---
PT IS ALERT AND ORIENTED THIS MORNING. THIS STUDENT GAVE MEDICATIONS TO PT AND COMPLETED SHIFT ASSESSMENT. PT STATES HE IS NOT HUNGRY THIS MORNING SO BREAKFAST HAS NOT BEEN ORDERED. PT DOES NOT COMPLAIN OF ANY PAIN AT THIS TIME. CALL LIGHT WITHIN REACH
--- NOTE | 2021-02-03 09:25 | NUR ---
ECHO AT BEDSIDE.
--- NOTE | 2021-02-03 11:16 | NUR ---
tray line worker followed up with patient about PT eval recommending HH vs. SNF. Patient educated that he is observation status right now and that SNF would be private pay. Patient verbalizes that he does not feel like he is safe enough to go home on his own yet with just HH. States he's been to [facility] in the past and would really like to go there. Vanessa with contacted to review the patient's chart and see if there is any qualifiers for IP status. Gauri with [facility] contacted who states that the private pay base rate would be $379 per day. Patient's referral faxed to Gauri for her team to review as well. Patient notified of the private pay cost.
[2021-02-03 11:36] VITALS: BP 116/57; PULSE 72; TEMP 98.2
--- NOTE | 2021-02-03 13:27 | NUR ---
fire crew worker asked Deanna PADILLA to review the patient for possible placement on the unit.
--- NOTE | 2021-02-03 14:23 | NUR ---
First visit from the fire tower keeper. No needs right now.
[2021-02-03 16:00] VITALS: BP 125/57; PULSE 74; TEMP 99.2
[2021-02-03 16:50] LABS: COLLECTION METHOD CLEAN CATCH
[2021-02-03 17:03] LABS: PH 6 (5-8); SQUAMOUS EPITHELIAL 0-2 /hpf (0-10); URINE APPEARANCE Cloudy (CLEAR/HAZY); URINE BACTERIA None Seen (NONE SEEN); URINE BILIRUBIN Negative (NEGATIVE); URINE BLOOD 3+ (NEGATIVE); URINE COLOR Amber (YELLOW); URINE GLUCOSE Negative (NEGATIVE); URINE KETONE Negative (NEGATIVE); URINE LEUKOCYTE ESTERASE 1+ (NEGATIVE); URINE NITRATE Negative (NEGATIVE); URINE PROTEIN(semi-quant) 2+ (NEGATIVE); URINE RBC >50 /hpf (0-2); URINE UROBILINOGEN Negative (NEGATIVE)
[2021-02-03 19:24] VITALS: BP 107/49; PULSE 70; TEMP 98.6
--- NOTE | 2021-02-03 20:59 | NUR ---
ALERT AND OX3. DENIES SOA, CHEST PAIN OR DIZZY. NO GENERAL PAIN OTHER THAN KNEES-KPAD ON. PM MEDS GIVEN. POC DISCUSSED. CALL LIGHT WI REACH.
[2021-02-04 00:07] VITALS: BP 107/52; PULSE 64; TEMP 99.3
[2021-02-04 03:51] VITALS: BP 120/58; PULSE 61; TEMP 98.2
[2021-02-04 06:50] LABS: BASO % 0.3 % (0.0-2.0); EOS # 0.2 K/mm3 (0.0-0.7); EOS % 1.4 % (0-4.0); GRAN # 10.3 K/mm3 (1.4-6.5); GRAN % 76.9 % (42.2-75.2); HEMATOCRIT 37.4 % (42.0-52.0); HEMOGLOBIN 11.8 g/dl (13.5-18.0); LYMPH # 1.5 K/mm3 (1.2-3.4); LYMPH % 10.8 % (20.0-51.0); MEAN CORPUSCULAR HEMOGLOBIN 32 pg (27.0-31.0); MEAN CORPUSCULAR HGB CONC 32 g/dl (33.0-37.0); MEAN PLATELET VOLUME 11.1 fl (7.4-10.4); MONO # 1.3 K/mm3 (0.1-0.6); MONO % 9.9 % (1.7-9.3); PLATELET COUNT 142 K/mm3 (130-400); RED BLOOD COUNT 3.72 M/mm3 (4.20-5.60); REDCELL DISTRIBUTION WIDTH-CV 12.9 % (11.5-14.5)
[2021-02-04 06:53] LABS: MEAN CELL VOLUME 101 fl (80.0-100.0)
--- NOTE | 2021-02-04 06:55 | NUR ---
Report received from HARISH Gamez. Patient is sleeping in bed. Call light and bedside table are within reach. Will continue to monitor patient throughout shift.
[2021-02-04 06:59] VITALS: BP 122/67; PULSE 61; TEMP 97.9
[2021-02-04 07:02] LABS: INR 3.3 (0.8-3.0); PROTHROMBIN TIME 37.5 SECONDS (9.7-12.8)
[2021-02-04 07:09] LABS: CREATININE, serum 1.95 mg/dL (0.72-1.25); POTASSIUM 3.5 mmol/L (3.5-4.5)
--- NOTE | 2021-02-04 08:50 | NUR ---
Patient c/o flatulence and requested medication. This nurse told the patient we would discuss with Dr. Silva when she rounded. Patient agreed.
[2021-02-04] MEDS ORDERED: COUMADIN 22.5 MG/TAB PO ×2 (08:56)
[2021-02-04] MEDS ORDERED: OMNICEF 300MG300 MG PO (09:08)
[2021-02-04] MEDS ORDERED: COUMADIN 2MG2 MG/TAB PO (09:10)
--- NOTE | 2021-02-04 11:09 | NUR ---
Patient accepted to IPR unit. Daughter Vanessa notified. Vanessa would like a phone call for a clinical update. Patient's RN notified. Vanessa verbalizes that she is planning on coming up to vist her father on .
--- NOTE | 2021-02-04 11:38 | NUR ---
This nurse called Dr. Silva to let her know patient's urine was blood-tinged.
[2021-02-04 12:00] VITALS: BP 113/55; PULSE 70; TEMP 97.5
[2021-02-05] MEDS ORDERED: COUMADIN 22.5 MG/TAB PO ×2 (14:11→14:12)
== END 2021-02-04 14:11 ==
LOC: COL.ER 08:05 → SURG 09:09
PROVIDERS: Emergency Medicine; Physician Assistant; ADMIT Internal Medicine
DX: R31.0 Gross hematuria (principal); I48.91 Unspecified atrial fibrillation; G47.33 Obstructive sleep apnea (adult) (pediatric); D72.829 Elevated white blood cell count, unspecified; I50.20 Unspecified systolic (congestive) heart failure; J44.9 Chronic obstructive pulmonary disease, unspecified; Z99.81 Dependence on supplemental oxygen; E03.9 Hypothyroidism, unspecified; I73.9 Peripheral vascular disease, unspecified; M25.561 Pain in right knee; M25.562 Pain in left knee; R53.81 Other malaise; Z87.891 Personal history of nicotine dependence; Z79.82 Long term (current) use of aspirin; Z79.899 Other long term (current) drug therapy
CPT/HCPCS: G0008; G0378; J0696; J2270

== ENCOUNTER 2021-02-04 11:38 | Inpatient (IN) | payer MEDICARE, BC ==
[~2021-02-04] VITALS: Wt 95.5 kg
[~2021-02-04 11:38] MED LIST changes: +COUMADIN 2MG2 MG/TAB PO; +EUTHYROX25 MCG PO; +OMNICEF 300MG300 MG PO
[2021-02-04 16:00] VITALS: BP 116/60; PULSE 59; TEMP 97.1
[2021-02-04 18:00] VITALS: BP 116/60; BP 137/63; PULSE 59; PULSE 65; TEMP 97.1; TEMP 98.8
--- NOTE | 2021-02-04 19:06 | NUR ---
RECEIVED CHANGE OF SHIFT REPORT FROM DAY SHIFT NURSE. PATIENT RESTING IN BED WITH NO FURTHER NEEDS OR CONCERNS REPORTED.
--- NOTE | 2021-02-05 01:28 | NUR ---
REQUESTED TO HAVE CLEO DIAMOND TO RLE REMOVED D/T RLE PAIN.
[2021-02-05 04:53] VITALS: BP 125/57; PULSE 61; TEMP 97.8
--- NOTE | 2021-02-05 06:53 | NUR ---
Report received from Analilia MOREIRA. Patient is sleeping in bed. Call light and bedside table are within reach. Will continue to monitor patient throughout shift.
[2021-02-05 06:57] LABS: BASO % 0.4 % (0.0-2.0); EOS # 0.4 K/mm3 (0.0-0.7); EOS % 3.3 % (0-4.0); GRAN # 7.6 K/mm3 (1.4-6.5); GRAN % 70.9 % (42.2-75.2); HEMOGLOBIN 11.5 g/dl (13.5-18.0); LYMPH # 1.5 K/mm3 (1.2-3.4); LYMPH % 14.1 % (20.0-51.0); MEAN CORPUSCULAR HEMOGLOBIN 32 pg (27.0-31.0); MEAN CORPUSCULAR HGB CONC 33 g/dl (33.0-37.0); MEAN PLATELET VOLUME 10.8 fl (7.4-10.4); MONO # 1.1 K/mm3 (0.1-0.6); MONO % 10.6 % (1.7-9.3); PLATELET COUNT 171 K/mm3 (130-400); REDCELL DISTRIBUTION WIDTH-CV 12.6 % (11.5-14.5)
[2021-02-05 07:02] LABS: INR 3.3 (0.8-3.0); PROTHROMBIN TIME 36.9 SECONDS (9.7-12.8)
[2021-02-05 07:08] LABS: HEMATOCRIT 34.5 % (42.0-52.0); MEAN CELL VOLUME 96 fl (80.0-100.0)
[2021-02-05 07:09] LABS: CALCIUM 8.7 mg/dL (8.4-10.2); CREATININE, serum 2.11 mg/dL (0.72-1.25); POTASSIUM 3.5 mmol/L (3.5-4.5)
--- NOTE | 2021-02-05 07:11 | NUR ---
CHANGE OF SHIFT REPORT GIVEN TO DAY SHIFT NURSE, SERAFIN MOREIRA.
--- NOTE | 2021-02-05 11:24 | NUR ---
Patient self-ambulated to the bathroom. This nurse informed patient he needs to use call light prior to ambulating. Patient stated he had to go to bathroom. This nurse informed patient we asked him to call as a safety measure to keep him falling. Will continue to monitor patient throughout shift.
[2021-02-05] MEDS ORDERED: COUMADIN 22.5 MG/TAB PO ×2 (14:11→14:12)
--- NOTE | 2021-02-05 15:58 | NUR ---
Guitar Repair Technician met with patient to complete intake as he is new to [facility]. Patient lives alone in [place] and sees Dr. Vasques for primary care. Patient obtains medications from [facility] with no difficulties. Patient has oxygen and bipap through [facility]. Patient advised he is normally independent with ADLS and is still driving. Patient has DPOA-HC which designate his daughter, Deanna (ph#[phone]) and son Nilay. GUNNER provided copy of team conference notes to patient and advised that tentative discharge date will be 02/11/21. Patient states this sounds good. SW also advised that the team is recommending Home Health PT/OT and provided Medicare.gov list of HH agencies that serve [place]. Patient states he will think about this. GUNNER contacted patient's daughter, Deanna to provide update. GUNNER provided tentative discharge date to Deanna who advised that she will check with patient's local friend to see if they can provide patient a ride home. Deanna states she will be here tomorrow and will review Home Health list with patient.
[2021-02-05 16:36] VITALS: BP 132/61; PULSE 60; TEMP 97.8
[2021-02-05 19:03] VITALS: BP 130/66; PULSE 60; TEMP 98.7
--- NOTE | 2021-02-05 21:00 | NUR ---
SITTING UP IN CHAIR WORKING ON PUZZLE. NO NEEDS AT THIS TIME.
[2021-02-06 05:14] VITALS: BP 114/60; PULSE 59; TEMP 97.5
--- NOTE | 2021-02-06 07:10 | NUR ---
Report received from HARISH Kennedy. Patient is sitting in recliner working a puzzle. Patient denies pain at this time. Patient stated he slept well. Call light and bedside table are within reach. Will continue to monitor patient throughout shift.
[2021-02-06 07:51] LABS: INR 2.7 (0.8-3.0); PROTHROMBIN TIME 30.4 SECONDS (9.7-12.8)
[2021-02-06 17:46] VITALS: BP 118/59; PULSE 74; TEMP 97.9
--- NOTE | 2021-02-06 19:00 | NUR ---
RECEIVED CHANGE OF SHIFT REPORT FROM DAY SHIFT NURSE. PATIENT RESTING IN BED WITH BED ALARM ON AND CALL LIGHT WITHIN REACH.
[2021-02-07 04:07] VITALS: BP 114/60; PULSE 99; TEMP 98.2
[2021-02-07 06:47] LABS: BASO # 0.1 K/mm3 (0.0-0.2); BASO % 0.7 % (0.0-2.0); EOS # 0.5 K/mm3 (0.0-0.7); GRAN # 5.9 K/mm3 (1.4-6.5); GRAN % 64.2 % (42.2-75.2); HEMOGLOBIN 11.8 g/dl (13.5-18.0); LYMPH # 1.8 K/mm3 (1.2-3.4); LYMPH % 19.7 % (20.0-51.0); MEAN CELL VOLUME 98 fl (80.0-100.0); MEAN CORPUSCULAR HEMOGLOBIN 32 pg (27.0-31.0); MEAN CORPUSCULAR HGB CONC 32 g/dl (33.0-37.0); MEAN PLATELET VOLUME 10.8 fl (7.4-10.4); MONO # 0.9 K/mm3 (0.1-0.6); MONO % 9.7 % (1.7-9.3); PLATELET COUNT 189 K/mm3 (130-400); RED BLOOD COUNT 3.73 M/mm3 (4.20-5.60)
[2021-02-07 06:51] LABS: INR 2.5 (0.8-3.0); PROTHROMBIN TIME 28.2 SECONDS (9.7-12.8)
[2021-02-07 06:54] LABS: HEMATOCRIT 36.6 % (42.0-52.0)
[2021-02-07 07:14] LABS: CALCIUM 8.5 mg/dL (8.4-10.2); CREATININE, serum 2.08 mg/dL (0.72-1.25); MAGNESIUM 2.1 mg/dL (1.6-2.6); POTASSIUM 3.5 mmol/L (3.5-4.5)
--- NOTE | 2021-02-07 07:23 | NUR ---
CHANGE OF SHIFT REPORT GIVEN TO DAY SHIFT RNSOHAN
--- NOTE | 2021-02-07 07:33 | NUR ---
Pt doing well this morning. Standby assist to the restroom. Has some pain complaints in his left shoulder. Reported does not need any medication at this time, but would like some before PT at 1000. Pt currently eating breakfast, call light within reach. Will continue to monitor
[2021-02-07 08:17] VITALS: BP 112/54; PULSE 60; TEMP 97.7
--- NOTE | 2021-02-07 13:02 | NUR ---
Pt continues to do well, his daughter is present visiting at this time. OT/PT discussed letting him be independent in the room, pt is aware. Tylenol given this am for shoulder pain which pt stated did help. No other needs verbalized, call light within reach
--- NOTE | 2021-02-07 13:32 | NUR ---
Admission QIM scores were reviewed by the team. Code of 4 chosen for oral hygiene was determined by team discussion to be the most usual performance for this patient during the assessment period. Code of 3 chosen for toilet hygiene was determined by team discussion to be the most usual performance for this patient during the assessment period. Code of 3 chosen for toileting transfers was determined by team discussion to be the most usual performance for this patient during the assessment period. Code of 3 chosen for shower/bathe self was determined by team discussion to be the most usual performance before interventions for this patient during the assessment period. Code of 5 chosen for upper body dressing was determined by team discussion to be the most usual performance before interventions for this patient during the assessment period. Code of 3 chosen for lower body dressing was determined by team discussion to be the most usual performance for this patient during the assessment period. Code of 2 chosen for putting on/taking off footwear was determined by team discussion to be the most usual performance for this patient during the assessment period. Code of 4 chosen for rolling left to right was determined by team discussion to be the most usual performance before interventions for this patient during the assessment period. Code of 4 chosen for sit to lying was determined by team discussion to be the most usual performance before interventions for this patient during the assessment period. Code of 4 chosen for lying to sitting on side of bed was determined by team discussion to be the most usual performance for this patient during the assessment period.--Deanna Brown,
[2021-02-07 18:32] VITALS: BP 130/59; PULSE 66; TEMP 97.9
--- NOTE | 2021-02-07 18:52 | NUR ---
RECEIVED CHANGE OF SHIFT REPORT FROM DAY SHIFT NURSE. PATIENT UP IN ROOM INDEPENDENTLY WITH NO REPORTED PROBLEMS OR CONCERNS.
[2021-02-08 05:40] VITALS: BP 120/60; PULSE 61; TEMP 97.7
[2021-02-08 06:33] LABS: COLLECTION METHOD CLEAN CATCH
[2021-02-08 06:55] LABS: AMORPHOUS CRYSTAL Present (NOT PRESENT); MUCOUS Present (NOT PRESENT); PH 5 (5-8); SQUAMOUS EPITHELIAL 0-2 /hpf (0-10); URINE APPEARANCE Cloudy (CLEAR/HAZY); URINE BACTERIA None Seen (NONE SEEN); URINE BILIRUBIN Negative (NEGATIVE); URINE BLOOD 3+ (NEGATIVE); URINE COLOR Yellow (YELLOW); URINE GLUCOSE Negative (NEGATIVE); URINE KETONE Negative (NEGATIVE); URINE LEUKOCYTE ESTERASE 1+ (NEGATIVE); URINE NITRATE Negative (NEGATIVE); URINE PROTEIN(semi-quant) Negative (NEGATIVE); URINE RBC >50 /hpf (0-2); URINE UROBILINOGEN Negative (NEGATIVE)
--- NOTE | 2021-02-08 07:02 | NUR ---
CHANGE OF SHIFT REPORT GIVEN TO DAY SHIFT RNEILEEN.
--- NOTE | 2021-02-08 08:28 | NUR ---
Patient laying in bed, states that his right leg hurts and would like pain medication. Nurse informed the patient that he last got pain medication at 0630 and will notify the doctor with the patients concerns. VSS. IV CDI. CLEO HERNANDEZ. Patient is independent in the room. No further needs expressed. Call light within reach
--- NOTE | 2021-02-08 08:36 | NUR ---
OT had the nurse assess the patients lateral right foot, patient states it hurts with touch and is blanchable. Nurse will notify the doctor. Call light within reach
[2021-02-08 17:30] VITALS: BP 143/70; PULSE 72; TEMP 97.4
--- NOTE | 2021-02-08 18:13 | NUR ---
Patient had complaints of pain in right lateral and top of foot. Doctor aware and new orders placed for pain medication. Patient worked with therapy and tolerated well. A&Ox4. VSS. IV CDI. Independent in the room. Nurse instructed patient to elevate BLE to reduce edema. Patient verbalized an understanding. Call light within reach
--- NOTE | 2021-02-09 02:00 | NUR ---
PT SLEEPING IN BED, RESPIRATIONS UNLABORED. HAS AMBULATED TO WITH STEADY GAIT. WHEN AWAKE, PT WORKS ON HIS PUZZLE OR WATCHES TV. PT HAS DENIED PAIN. LOWER EXTREMITIES CONTINUE TO BE EDEMATOUS. PT IS ENCOURAGED TO ELEVATE LEGS WHILE IN CHAIR ET FREQUENTLY DOES SO.
[2021-02-09 03:14] VITALS: BP 134/76; PULSE 68; TEMP 97.7
--- NOTE | 2021-02-09 08:20 | NUR ---
Patient sitting up on the edge of the bed eatting breakfast. A&Ox4. VSS. IV CDI. Reports usual aches and pains, states right foot feels "better". Nurse instructed patient to elevate BLE to reduce edema. Patient verbalized an understanding. Patient independent in the room. No further needs expressed. Call light within reach
[2021-02-09 17:05] VITALS: BP 136/56; PULSE 64; TEMP 97.8
--- NOTE | 2021-02-09 17:32 | NUR ---
Patient has been sitting up in the recliner most of the day working on his puzzle. A&Ox4. VSS. IV CDI. Nurse has been instructing the patient to elevate BLE, patient has not done this most times. Denies pain. Independent in the room. Call light within reach
--- NOTE | 2021-02-09 19:20 | NUR ---
PT SITTING UP TO TABLE WORKING A PUZZLE. PT MOD I IN ROOM. ENC PT TO CALL FOR ASSIST WHEN NEEDED. VERBALIZED UNDERSTANDING. CALL LIGHT IN REACH.
[2021-02-10 06:22] VITALS: BP 116/59; PULSE 62; TEMP 97.8
--- NOTE | 2021-02-10 07:00 | NUR ---
pt resting in bed. will continue to monitor.
[2021-02-10] MEDS ORDERED: MAXIPIME2 GM IV ×2 (15:32→16:39)
--- NOTE | 2021-02-10 15:55 | NUR ---
horticultural worker met with patient, along with Amaya Turner, social services assistant, about the new order of IV antibiotics needed for an additional 6 weeks. Patient states that he really wishes to return home, however, does not have transportation assistance to get to outpatient appointments and does not have someone at home that can be taught to administer the IV antibiotics at home. Worker discussed skilled care, local [place] [facility] facilities and [facility] and patient said he preferred [facility]. Worker gave a referral with faxed clinical information to Gauri at [facility] and requested confirmation of acceptance by 5:00 today as discharge is tomorrow. Worker contacted patient's daughter, and advised of the above information. Daughter verbalized understanding of the discharge plan. Dian wishes for all further calls to be sent to her cell phone at #[phone]. Worker advised that a call to the daughter would be made when we heard from [facility].
[2021-02-10 16:00] VITALS: BP 135/82; PULSE 69; TEMP 98.1
[2021-02-10] MEDS ORDERED: DEMADEX 20MG20 M1 PO (16:52)
[2021-02-11 06:00] VITALS: BP 142/78; PULSE 84; TEMP 97.7
[2021-02-11 06:41] LABS: BASO # 0.1 K/mm3 (0.0-0.2); BASO % 0.6 % (0.0-2.0); EOS # 0.4 K/mm3 (0.0-0.7); EOS % 4.5 % (0-4.0); GRAN # 6.6 K/mm3 (1.4-6.5); GRAN % 67.3 % (42.2-75.2); HEMATOCRIT 35.6 % (42.0-52.0); LYMPH # 1.7 K/mm3 (1.2-3.4); LYMPH % 17.3 % (20.0-51.0); MEAN CELL VOLUME 95 fl (80.0-100.0); MEAN CORPUSCULAR HEMOGLOBIN 32 pg (27.0-31.0); MEAN CORPUSCULAR HGB CONC 34 g/dl (33.0-37.0); MEAN PLATELET VOLUME 10.6 fl (7.4-10.4); MONO # 0.9 K/mm3 (0.1-0.6); MONO % 9.6 % (1.7-9.3); PLATELET COUNT 200 K/mm3 (130-400); RED BLOOD COUNT 3.76 M/mm3 (4.20-5.60)
[2021-02-11 06:46] LABS: INR 3.6 (0.8-3.0); PROTHROMBIN TIME 40.1 SECONDS (9.7-12.8)
[2021-02-11 06:52] LABS: C-REACTIVE PROTEIN 2.85 mg/dL (0.00-0.50); CALCIUM 8.5 mg/dL (8.4-10.2); CREATININE, serum 2.06 mg/dL (0.72-1.25); POTASSIUM 3.3 mmol/L (3.5-4.5)
--- NOTE | 2021-02-11 07:37 | NUR ---
pt up ad david in room, calls for assistance as needed. slept well this shift. PICC line to ROSIE intact and secure, good blood return. no c/o pain tonight.
--- NOTE | 2021-02-11 07:44 | NUR ---
Report received by HARISH Lazo. Patient is up and in the bathroom changing his clothes. Patient is MOD I in room and denies pain at this time. Call light and bedside table are within reach of the patient's bed/recliner. Will continue to monitor patient throughout shift.
[2021-02-11] MEDS ORDERED: COUMADIN 3MG3 MG/TAB PO (09:41)
--- NOTE | 2021-02-11 10:25 | NUR ---
Clinical updates faxed to Gauri at [facility].
--- NOTE | 2021-02-11 10:58 | NUR ---
Gauri from [facility] accepts patient for SNF. MADAY Jones and RN notified. Covid swab requested. Tentatively arrangement has been made for the patient to be picked up at 1230. Care team, patient and patient's daughter Linda notified.
--- NOTE | 2021-02-11 12:13 | NUR ---
DC orders along with patient's covid swab faxed to Gauri at [facility]. Presented patient with MCR IM form. Education provided and form signed. Original given to the patient and copy placed in chart.
--- NOTE | 2021-02-11 13:08 | NUR ---
Patient has been discharged to [facility]. Report given to HARISH Bautista. Patient's room has been cleared of personal items to include maltster and cell phone. Patient's folder was given to [facility] transportation. Patient left via .
== END 2021-02-11 12:45 | DRG 948 ==
PROVIDERS: Internal Medicine Infectious Disease; Student in an Organized Health Care Education/Training Program; ADMIT Internal Medicine
PROC: 02HV33Z Insertion of Infusion Device into Superior Vena Cava, Percutaneous Approach (ICD-10-PCS; principal; 2021-02-10)
DX: R53.81 Other malaise (principal); I50.22 Chronic systolic (congestive) heart failure; J96.10 Chronic respiratory failure, unspecified whether with hypoxia or hypercapnia; N39.0 Urinary tract infection, site not specified; N17.9 Acute kidney failure, unspecified; I13.0 Hypertensive heart and chronic kidney disease with heart failure and stage 1 through stage 4 chronic kidney disease, or unspecified chronic kidney disease; B96.5 Pseudomonas (aeruginosa) (mallei) (pseudomallei) as the cause of diseases classified elsewhere; M54.50 Low back pain, unspecified; R07.9 Chest pain, unspecified; R79.89 Other specified abnormal findings of blood chemistry; J44.9 Chronic obstructive pulmonary disease, unspecified; N18.9 Chronic kidney disease, unspecified; G47.33 Obstructive sleep apnea (adult) (pediatric); I48.91 Unspecified atrial fibrillation; R26.89 Other abnormalities of gait and mobility; E03.9 Hypothyroidism, unspecified; R31.0 Gross hematuria; I73.9 Peripheral vascular disease, unspecified; E87.6 Hypokalemia; Z95.0 Presence of cardiac pacemaker; M19.90 Unspecified osteoarthritis, unspecified site; Z95.3 Presence of xenogenic heart valve; Z73.6 Limitation of activities due to disability; Z79.01 Long term (current) use of anticoagulants; Z99.81 Dependence on supplemental oxygen; Z96.653 Presence of artificial knee joint, bilateral; Z96.612 Presence of left artificial shoulder joint; Z88.8 Allergy status to other drugs, medicaments and biological substances; Z88.1 Allergy status to other antibiotic agents; Z88.5 Allergy status to narcotic agent; Z79.2 Long term (current) use of antibiotics; Z79.891 Long term (current) use of opiate analgesic; Z60.2 Problems related to living alone; Z96.0 Presence of urogenital implants; M25.562 Pain in left knee; M25.561 Pain in right knee
CPT/HCPCS: 99222-AI; 99231-AI; 99232-AI; 99233-AI; 99239; C1751; J0692; J0713

== ENCOUNTER 2021-02-22 16:29 | Inpatient (IN) | payer MEDICARE, BC ==
[~2021-02-22] VITALS: Ht 167.6 cm; Wt 97.3 kg
[~2021-02-22 16:29] MED LIST changes: +COUMADIN 3MG3 MG/TAB PO; +MAXIPIME2 GM IV
[2021-02-22 17:52] LABS: BASO # 0.1 K/mm3 (0.0-0.2); BASO % 0.7 % (0.0-2.0); EOS # 0.3 K/mm3 (0.0-0.7); EOS % 3.6 % (0-4.0); GRAN # 5.7 K/mm3 (1.4-6.5); GRAN % 65.4 % (42.2-75.2); LYMPH # 1.5 K/mm3 (1.2-3.4); LYMPH % 17.5 % (20.0-51.0); MEAN CELL VOLUME 96 fl (80.0-100.0); MEAN CORPUSCULAR HEMOGLOBIN 32 pg (27.0-31.0); MEAN CORPUSCULAR HGB CONC 33 g/dl (33.0-37.0); MEAN PLATELET VOLUME 11.9 fl (7.4-10.4); MONO # 1.1 K/mm3 (0.1-0.6); MONO % 12.5 % (1.7-9.3); PLATELET COUNT 147 K/mm3 (130-400); RED BLOOD COUNT 4.05 M/mm3 (4.20-5.60); REDCELL DISTRIBUTION WIDTH-CV 13.7 % (11.5-14.5)
[2021-02-22 18:10] LABS: BILIRUBIN,TOTAL 0.6 mg/dL (0.2-1.2); CALCIUM 9.4 mg/dL (8.4-10.2); CREATININE, serum 3.35 mg/dL (0.72-1.25); POTASSIUM 4.2 mmol/L (3.5-4.5); TOTAL PROTEIN 7.3 gm/dL (6.2-8.1)
[2021-02-22 19:59] LABS: INR 2.3 (0.8-3.0); PROTHROMBIN TIME 25.2 SECONDS (9.7-12.8)
[2021-02-22 20:32] VITALS: BP 135/70; PULSE 65; TEMP 97.6
[2021-02-23] VITALS (8 sets, daily range): BP systolic 116–138; BP diastolic 53–71; PULSE 59–71; TEMP 97.6–98.9
--- NOTE | 2021-02-23 00:24 | NUR ---
THIS RN GAVE PT HIS ORDERED 1.5 MG OF COUMADIN RIGHT AFTER Legal Egg PROGRAM WENT DOWN. THIS RN HAD JUST VERIFIED ORDER OF 1.5MG PRIOR TO PULLING THE MEDICATION. THIS RN GAVE MEDICATION AT 2245. THIS RN DOCUMENTED MEDICATION AFTER SYSTEM WAS BACK UP.
[2021-02-23 00:28] LABS: COLLECTION METHOD CLEAN CATCH
--- NOTE | 2021-02-23 00:33 | NUR ---
PT ARRIVED TO FLOOR APPROXIMATELY 1999. PT WAS INCONTINENT OF URINE UPON ARRIVAL. THIS RN AND PODIATRY ASSISTANT BRITTNEE CHANGED PT BRIEF TO CLEAN DRY AND REMOVED PANTS. PT TESTICLES APPEARED TO BE SWOLLEN/ENLARGED. THIS RN NOTED BILATERAL LOWER EXTREMETIES TO BE WRAPPED IN KARMA BANDAGES, LEGS SWOLLEN WITH ECCHYMOSIS ON SHINS. PT IS SLIGHTLY CONFUSED AND IS A POOR HISTORIAN. PT DAUGHTER CALLED DURING END OF ASSESSMENT WANTING AN UPDATE ON THE PATIENT. THIS RN TOLD DAUGHTER WE ARE WAITING ON LABS AND RESULTS FOR FURTHER INFORMATION. TOLD DAUGHTER THAT THIS RN HAD JUST FINISHED ADMISSION PAPERWORK AND WOULD UPDATE HER ONCE MORE INFORMATION WAS GATHERED. ALL OF PATIENT'S NEEDS WERE MET, NO NEEDS AT THIS TIME.
[2021-02-23 00:55] LABS: PH 5 (5-8); SQUAMOUS EPITHELIAL None Seen /hpf (0-10); URINE APPEARANCE Clear (CLEAR/HAZY); URINE BACTERIA None Seen (NONE SEEN); URINE BILIRUBIN Negative (NEGATIVE); URINE BLOOD 2+ (NEGATIVE); URINE COLOR Straw (YELLOW); URINE GLUCOSE Negative (NEGATIVE); URINE KETONE Negative (NEGATIVE); URINE LEUKOCYTE ESTERASE Negative (NEGATIVE); URINE NITRATE Negative (NEGATIVE); URINE PROTEIN(semi-quant) Negative (NEGATIVE); URINE RBC 0-2 /hpf (0-2); URINE UROBILINOGEN Negative (NEGATIVE)
--- NOTE | 2021-02-23 06:25 | NUR ---
PT HAD AN UNEVENTFUL NIGHT. TOOK MEDICATIONS PRESCRIBED, NO COMPLAINTS AT THIS TIME. CALL LIGHT IN REACH, FALL PRECAUTIONS IN PLACE, IV FLUIDS RUNNING. NO OTHER NEEDS AT THIS TIME.
[2021-02-23 12:45] LABS: BASO # 0.1 K/mm3 (0.0-0.2); BASO % 0.8 % (0.0-2.0); EOS # 0.3 K/mm3 (0.0-0.7); EOS % 2.8 % (0-4.0); GRAN # 6.7 K/mm3 (1.4-6.5); GRAN % 70.7 % (42.2-75.2); HEMOGLOBIN 11.7 g/dl (13.5-18.0); LYMPH # 1.3 K/mm3 (1.2-3.4); LYMPH % 13.9 % (20.0-51.0); MEAN CELL VOLUME 98 fl (80.0-100.0); MEAN CORPUSCULAR HEMOGLOBIN 32 pg (27.0-31.0); MEAN CORPUSCULAR HGB CONC 32 g/dl (33.0-37.0); MEAN PLATELET VOLUME 11.4 fl (7.4-10.4); MONO # 1.1 K/mm3 (0.1-0.6); MONO % 11.3 % (1.7-9.3); PLATELET COUNT 113 K/mm3 (130-400); RED BLOOD COUNT 3.69 M/mm3 (4.20-5.60); REDCELL DISTRIBUTION WIDTH-CV 13.7 % (11.5-14.5)
[2021-02-23 12:49] LABS: HEMATOCRIT 36.1 % (42.0-52.0)
[2021-02-23 12:53] LABS: CALCIUM 8.2 mg/dL (8.4-10.2); CREATININE, serum 2.95 mg/dL (0.72-1.25)
--- NOTE | 2021-02-23 18:45 | NUR ---
Carlton met with the pt who stated his preference to return home once medically stable. The pt was sleepy when spoken to and had to repeat a few of my questions. The pt states he lives alone and still drives. The pt is independent on all ADLs, but does use a bipap/cpap. I asked the pt who is PCP and he stated he could not remember, but does state he gets his medications from [facility]. The pt states he is not interested in a DPOA-HC at this time. No other needs stated at this time. SW to await for further recommendations. D/C: home
--- NOTE | 2021-02-23 22:34 | NUR ---
PT ASSESSMENT COMPLETED. DENIES PAIN. ALERT AND ORIENTATED X4. SOME CONFUSION ON HOW TO WORK CALL LIGHT/TV CONTROLS. THIS RN AND AIDE ANDRE ASSISTED PT WITH TV CONTROLS AND ALL NEEDS. PT IS PLEASANT AND COOPERATIVE. CALL LIGHT IN REACH, BED ALARM ON DUE TO SBA FOR BATHROOM PURPOSES. NO OTHER NEEDS AT THIS TIME.
[2021-02-24 04:58] VITALS: BP 135/64; PULSE 72; TEMP 97.7
--- NOTE | 2021-02-24 07:04 | NUR ---
PT HAD AN OK NIGHT. PT UP A COUPLE TIMES OVERNIGHT TO GO TO RESTROOM AND UNABLE TO FALL BACK ASLEEP. PT HAD SLIGHT CONFUSION OVER NIGHT, ASKING FOR 3 LB DUMBBELLS. PT REORIENTATED AND STATED THAT HE JUST WANTED TO DO SOME LIGHT LIFTING. CALL LIGHT IN REACH. NO OTHER NEEDS AT THIS TIME.
--- NOTE | 2021-02-24 07:30 | NUR ---
Pt. progressing w/ plan of care. Pt. resting in bed comfortably and denies needs. Assessment complete. Report received from HARISH Presley. Fernandez reports pt. has PICC line to R arm and it was clogged while he was at [facility]. [facility] HARISH Treviño called and voicemail left on her phone to notify of PICC and pt.'s status. Pt. denies further needs at this time, call light in reach.
--- NOTE | 2021-02-24 07:34 | NUR ---
This RN assessed PICC line to R arm and it flushed and blood return was noted. Call back from HARISH Treviño. New orders obtained for PICC line care. Kamila reports if blood return is noted, it is OK to use PICC. Plan for this RN to call lab and let her know this RN can obtain labs off of PICC line.
[2021-02-24 07:35] VITALS: BP 149/76; PULSE 76; TEMP 98.3
[2021-02-24 08:20] LABS: BASO # 0.1 K/mm3 (0.0-0.2); BASO % 0.4 % (0.0-2.0); EOS # 0.2 K/mm3 (0.0-0.7); EOS % 1.7 % (0-4.0); GRAN # 10.5 K/mm3 (1.4-6.5); GRAN % 78.7 % (42.2-75.2); HEMATOCRIT 38.2 % (42.0-52.0); HEMOGLOBIN 12.8 g/dl (13.5-18.0); LYMPH # 1.2 K/mm3 (1.2-3.4); LYMPH % 9.2 % (20.0-51.0); MEAN CELL VOLUME 96 fl (80.0-100.0); MEAN CORPUSCULAR HEMOGLOBIN 32 pg (27.0-31.0); MEAN CORPUSCULAR HGB CONC 34 g/dl (33.0-37.0); MEAN PLATELET VOLUME 11.9 fl (7.4-10.4); MONO # 1.3 K/mm3 (0.1-0.6); MONO % 9.6 % (1.7-9.3); PLATELET COUNT 91 K/mm3 (130-400); REDCELL DISTRIBUTION WIDTH-CV 13.4 % (11.5-14.5)
[2021-02-24 08:25] LABS: CALCIUM 8.6 mg/dL (8.4-10.2); CREATININE, serum 2.94 mg/dL (0.72-1.25); MAGNESIUM 1.9 mg/dL (1.6-2.6); POTASSIUM 3.4 mmol/L (3.5-4.5)
--- NOTE | 2021-02-24 09:30 | NUR ---
pATIENT ADMITTED WITH A picc. picc INTACT IN PATIENT'S RIGHT UPPER ARM. pORT FLUSHED WITH 10 Ml NORMAL SALINE WITH GOOD BLOOD RETURN NOTED. nO DIFFICULTY OR RESISTANCE WITH FLUSHING. nO CHLORHEXIDINE IMPREGNATED DISC PRESENT. sTERILE DRESSING CHANGE DONE WITH INSERTION SITE CLEANSED WITH cHLORApREP X1, CHLORHEXIDINE IMPREGNATED DISC APPLIED, SKIN PREP, sTATlOCK, AND tEGADERM APPLIED. aRM WRAPPED WITH La TO PROTECT CATHETER PATIENT HAD NO CONCERNS.
--- NOTE | 2021-02-24 11:00 | NUR ---
Pt.'s daughter Vanessa called to discuss concerns with her dad in regards to his confusion that brought him to the hospital. Pt.'s daughter believes the antibiotic pt. was on was causing confusion. MADAY Ellis notified, Hazel reports the antibiotic is going to be changed. Pt.'s daughter's telephone number provided to Dr. Dc.
--- NOTE | 2021-02-24 11:01 | NUR ---
Initial visit; Patient thanked Plastics Fitter for looking in on him and offering God's blessings. Patient and Plastics Fitter had a nice visit about his home and family.
[2021-02-24 12:03] VITALS: BP 130/68; PULSE 74; TEMP 97.9
[2021-02-24 15:32] VITALS: BP 128/71; PULSE 74; TEMP 98.6
--- NOTE | 2021-02-24 16:25 | NUR ---
Patient was admitted from [facility]. Phone call made to Gauri at [facility] who states that they will be able to take the patient back once medically ready. Clinical updates faxed to Gauri.
--- NOTE | 2021-02-24 19:10 | NUR ---
Pt. incontinent in brief but did get up OOB to use toilet. Pt. fall risk. Night HARISH Kendall given report.
--- NOTE | 2021-02-24 19:30 | NUR ---
Bedside shift report received, asssumed care for assistant printer floor covering. Assessment complete. A&Ox4. Denies pain/nausea/shortness of breath. VS stable. Assisted up to bathroom at this time. Voided without difficulty. Is not very steady on feet. Eddie bandages to bilat lower extremities. PICC to right upper arm flushes without difficulty-good blood return. Plan of care discussed for this shift to include meds/VS/calling for questions/concerns. Verbalizes understanding/denies needs. Call light in reach. WIll monitor.
[2021-02-24 20:27] VITALS: BP 126/65; PULSE 69; TEMP 97.5
--- NOTE | 2021-02-25 00:10 | NUR ---
Resting in bed eyes closed. Has been sleeping well thus far. No s/s of pain or discomfort noted. Call light in reach. Will monitor.
[2021-02-25 00:21] VITALS: BP 130/75; PULSE 69; TEMP 98.1
[2021-02-25 03:57] VITALS: BP 130/75; PULSE 64; TEMP 98.4
--- NOTE | 2021-02-25 04:16 | NUR ---
Continues to sleep well this shift. Neuros WNL-more forgetful than confused. No c/o shortness of breath/nausea. Did have some shoulder pain earlier in shift and received one dose of tylenol with good relief. Call light in reach. Will monitor.
--- NOTE | 2021-02-25 06:47 | NUR ---
Bedside shift change complete w/ HARISH Kendall. Pt. boosted up in bed. Pt. denies needs at this time. Bed alarm on, call light in reach.
[2021-02-25 07:29] VITALS: BP 129/68; PULSE 65; TEMP 98.6
--- NOTE | 2021-02-25 07:41 | NUR ---
Pt. progressing w/ plan of care. Pt.'s legs were wrapped w/ eddie bandages. Eddie wraps removed, revealing dry legs and heels with old blisters. Lotion applied. Plan to rewrap legs with eddie wrap. Pt.'s feel edematous, R greater than left. Pt. reports soreness under R rib but only when pressed on. This RN advised pt. to not press on right rib. Pt. getting OOB in the chair with MARGARITO Cee. Plan for pt. to eat breakfast in the chair. Pt. also voided, he was incontinent in pull up but also voided on the toilet. Pt. in chair now, call light and belongings in reach.
[2021-02-25 08:26] LABS: BASO # 0.1 K/mm3 (0.0-0.2); BASO % 0.6 % (0.0-2.0); EOS # 0.3 K/mm3 (0.0-0.7); EOS % 3.1 % (0-4.0); GRAN # 7.7 K/mm3 (1.4-6.5); GRAN % 70.7 % (42.2-75.2); LYMPH # 1.5 K/mm3 (1.2-3.4); LYMPH % 13.6 % (20.0-51.0); MEAN CELL VOLUME 94 fl (80.0-100.0); MEAN CORPUSCULAR HEMOGLOBIN 32 pg (27.0-31.0); MEAN CORPUSCULAR HGB CONC 34 g/dl (33.0-37.0); MEAN PLATELET VOLUME 11.5 fl (7.4-10.4); MONO # 1.3 K/mm3 (0.1-0.6); MONO % 11.5 % (1.7-9.3); PLATELET COUNT 107 K/mm3 (130-400); RED BLOOD COUNT 3.71 M/mm3 (4.20-5.60); REDCELL DISTRIBUTION WIDTH-CV 13.7 % (11.5-14.5)
[2021-02-25 08:38] LABS: CALCIUM 9.1 mg/dL (8.4-10.2); CREATININE, serum 3.07 mg/dL (0.72-1.25); POTASSIUM 3.2 mmol/L (3.5-4.5)
--- NOTE | 2021-02-25 09:15 | NUR ---
Cap changed to PICC line to R upper arm at this time.
[2021-02-25 11:57] VITALS: BP 142/72; PULSE 67; TEMP 98
--- NOTE | 2021-02-25 12:41 | NUR ---
Pt. is going to stay overnight for nephrology consult as well as monitoring labs. Pt.'s daughter Vanessa ([phone]) made aware on the phone.
--- NOTE | 2021-02-25 14:28 | NUR ---
Clinical updates faxed to Gauri at [facility] and notified her of 24-48 hour discharge.
[2021-02-25 15:44] VITALS: BP 136/82; PULSE 69; TEMP 97.7
--- NOTE | 2021-02-25 17:34 | NUR ---
Patient sitting up in the recliner eating dinner. A&Ox4. VSS. IV CDI, fluids infusing. Denies pain and discomfort. Patient can be impulsive, but has called to get up since this nurse was on shift. BLE rasta wrap and elevated. No further needs expressed. Call light within reach. Chair alarm on
--- NOTE | 2021-02-25 20:00 | NUR ---
Patient laying in bed watching TV. A&Ox4. VSS. PICC ROSIE CDI. Denies pain and discomfort. Nurse assisted the patient with calling his daughter. No further needs expressed. Call light within reach
[2021-02-25 20:34] VITALS: BP 132/71; PULSE 68; TEMP 98.4
--- NOTE | 2021-02-25 23:10 | NUR ---
Report received from HARISH Jarvis. Assumed care for improvement nurse.
[2021-02-26] VITALS (7 sets, daily range): BP systolic 115–149; BP diastolic 62–78; PULSE 62–81; TEMP 97.7–99
--- NOTE | 2021-02-26 | NUR ---
Assessment complete. A&Ox4. Denies pain/nausea/shortness of breath. VS remain stable. Bilat lower ext edema-+2. NS@60ml/hr to right upper arm PICC. NC WNL. Denies needs at this time. Call light in reach. Will monitor.
--- NOTE | 2021-02-26 05:48 | NUR ---
Did not sleep at all this shift-stayed up watching TV. Denied pain/nausea/shortness of breath. VS stable. IV fluids infusing to right upper arm-NS@60ml/hr. Incontinent of urine-soaked the entire bed-up to bathroom at the same time and voided more. Denies current needs. Call light in reach. Will monitor.
[2021-02-26 07:00] LABS: BASO % 0.3 % (0.0-2.0); EOS # 0.3 K/mm3 (0.0-0.7); EOS % 2.5 % (0.0-4.0); GRAN # 8.1 K/mm3 (1.4-6.5); HEMOGLOBIN 12.2 g/dl (13.5-18.0); LYMPH # 1.8 K/mm3 (1.2-3.4); LYMPH % 15.1 % (20.0-51.0); MEAN CELL VOLUME 95 fl (80.0-100.0); MEAN CORPUSCULAR HEMOGLOBIN 33 pg (27-31); MEAN CORPUSCULAR HGB CONC 34 g/dl (33.0-37.0); MEAN PLATELET VOLUME 12.5 fl (7.4-10.4); MONO # 1.4 K/mm3 (0.1-0.6); MONO % 11.7 % (1.7-9.3); PLATELET COUNT 115 K/mm3 (130-400); RED BLOOD COUNT 3.75 M/mm3 (4.20-5.60); REDCELL DISTRIBUTION WIDTH-CV 13.6 % (11.5-14.5)
[2021-02-26 07:03] LABS: HEMATOCRIT 35.5 % (42.0-52.0)
[2021-02-26 07:06] LABS: CALCIUM 9.2 mg/dL (8.4-10.2); CREATININE, serum 3.11 mg/dL (0.72-1.25); POTASSIUM 3.8 mmol/L (3.5-4.5)
[2021-02-26 07:20] LABS: INR 1.9 (0.8-3.0); PROTHROMBIN TIME 21.2 SECONDS (9.7-12.8)
--- NOTE | 2021-02-26 08:56 | NUR ---
Pt assessment complete. Pt is sitting up in the chair upon entry, he is A/O x4. His breathing is even and unlabored on RA. Pt denies SOB. No pain at this time. Eating and drinking well. Pt incontinent of urine at times. Wanting to shower this am. No further needs, call light and chair alarms in place.
--- NOTE | 2021-02-26 14:43 | NUR ---
GUNNER faxed updates to Gauri at [facility].
--- NOTE | 2021-02-26 14:47 | NUR ---
Contacted Gauri with [facility] who states that they will be able to accept the patient back while on IV vancomycin. Informed Gauri that the hospitalist needs to get with the ID doctor to establish how long he will need antibiotics.
--- NOTE | 2021-02-26 18:15 | NUR ---
Pt had uneventful day, sat up in the recliner and napped. Continues to be alert and oriented with occasional forgetfulness. Neck pain earlier in the day improved with PRN Tylenol. IVF infusing, no needs at this time. Call light within reach.
--- NOTE | 2021-02-26 20:00 | NUR ---
PATIENT IS ORIENTED X2 BUT IS OCCATIONALLY FORGETFUL. PATIENT LIVES AT [facility] AND ADMITTED WITH AMS WHICH HAS IMPROVED. VSS. DENIES PAIN OR NAUSEA. BLE +3 EDEMA. SKIN ISSUES NOTED, SEE SHIFT ASSESSMENT. NEURO CHECKS WNL. TOLERATING AHA DIET. IV FLUIDS INFUSING INTO RIGHT UPPER ARM PICC. LEFT FORARM IV TO INT. HEAD TO TOE ASSESSMENT COMPLETE. HS MEDS GIVEN. NO OTHER NEEDS AT THIS TIME. CALL LIGHT IN REACH. BED ALARM ON.
[2021-02-27 04:25] VITALS: BP 127/61; PULSE 65; TEMP 97.7
--- NOTE | 2021-02-27 05:39 | NUR ---
Patient rested well. VS stable. No acute distress noted. Call light in reach.
[2021-02-27 06:41] LABS: BASO % 0.3 % (0.0-2.0); EOS # 0.3 K/mm3 (0.0-0.7); EOS % 2.8 % (0.0-4.0); GRAN # 7.2 K/mm3 (1.4-6.5); GRAN % 73.5 % (42.2-75.2); HEMOGLOBIN 11.1 g/dl (13.5-18.0); LYMPH # 1.2 K/mm3 (1.2-3.4); LYMPH % 12.3 % (20.0-51.0); MEAN CELL VOLUME 96 fl (80.0-100.0); MEAN CORPUSCULAR HEMOGLOBIN 32 pg (27-31); MEAN CORPUSCULAR HGB CONC 33 g/dl (33.0-37.0); MEAN PLATELET VOLUME 12.6 fl (7.4-10.4); MONO # 1.1 K/mm3 (0.1-0.6); MONO % 10.8 % (1.7-9.3); PLATELET COUNT 104 K/mm3 (130-400); RED BLOOD COUNT 3.46 M/mm3 (4.20-5.60); REDCELL DISTRIBUTION WIDTH-CV 13.6 % (11.5-14.5)
[2021-02-27 06:51] LABS: HEMATOCRIT 33.2 % (42.0-52.0)
[2021-02-27 06:58] LABS: CREATININE, serum 3.01 mg/dL (0.72-1.25); POTASSIUM 3.7 mmol/L (3.5-4.5)
[2021-02-27 07:56] VITALS: BP 148/77; PULSE 74; TEMP 97.7
--- NOTE | 2021-02-27 08:40 | NUR ---
Pt assessment complete. Pt is sitting up on the side of the bed upon entry, he is oriented x4. His breathing is even and unlabored on RA. Pt denies any SOB. He denies any pain at this time. Ate breakfast without issues. No N/V. Bed alarms in place. Call light within reach.
[2021-02-27 09:05] LABS: PROTHROMBIN TIME 22.7 SECONDS (9.7-12.8)
[2021-02-27 11:14] VITALS: BP 138/75; PULSE 75; TEMP 98.9
[2021-02-27] MEDS ORDERED: COUMADIN 3MG3 MG/TAB PO (12:07)
[2021-02-27] MEDS ORDERED: MERREM VIA500 MG/VIA IV (13:50)
--- NOTE | 2021-02-27 14:45 | NUR ---
Patient's PCP is .Gauri with [facility] states that they can take this patient back while getting 4 weeks of antibiotics (Merrem 500 ever 12 hours) via his picc line. Dr. Vasques has agreed to follow the patient's weekly labs during this time. Clinical updates and discharge orders faxed to Gauri at [facility]. Covid swab requested. Transportation arranged for 1530.Nursing staff notified. Patient and daughter notified.
[2021-02-27 15:24] VITALS: BP 159/86; PULSE 86; TEMP 97.8
--- NOTE | 2021-02-27 15:56 | NUR ---
IV to LFA dc'd catheter tip intact. Pt wheeled out of facility by [facility] staff member
== END 2021-02-27 15:56 | DRG 682 ==
LOC: COL.ER 16:29 → MEDICAL 18:36 → EDBEDREQ 18:56 → MEDICAL 18:56 → COL.ER 18:56 → MEDICAL 02-24 18:00
PROVIDERS: Physician Assistant; Student in an Organized Health Care Education/Training Program; ADMIT Internal Medicine
DX: N17.9 Acute kidney failure, unspecified (principal); G92.8 Other toxic encephalopathy; I13.0 Hypertensive heart and chronic kidney disease with heart failure and stage 1 through stage 4 chronic kidney disease, or unspecified chronic kidney disease; I50.22 Chronic systolic (congestive) heart failure; N39.0 Urinary tract infection, site not specified; E87.0 Hyperosmolality and hypernatremia; J96.10 Chronic respiratory failure, unspecified whether with hypoxia or hypercapnia; Z16.11 Resistance to penicillins; E78.5 Hyperlipidemia, unspecified; I48.91 Unspecified atrial fibrillation; E03.9 Hypothyroidism, unspecified; I73.9 Peripheral vascular disease, unspecified; J44.9 Chronic obstructive pulmonary disease, unspecified; G47.33 Obstructive sleep apnea (adult) (pediatric); B95.2 Enterococcus as the cause of diseases classified elsewhere; N18.4 Chronic kidney disease, stage 4 (severe); D53.9 Nutritional anemia, unspecified; T36.1X5A Adverse effect of cephalosporins and other beta-lactam antibiotics, initial encounter; Z96.653 Presence of artificial knee joint, bilateral; Z96.612 Presence of left artificial shoulder joint; Z95.0 Presence of cardiac pacemaker; Z95.2 Presence of prosthetic heart valve; Z79.2 Long term (current) use of antibiotics; Z79.01 Long term (current) use of anticoagulants; Z23 Encounter for immunization; Z20.822 Contact with and (suspected) exposure to COVID-19
CPT/HCPCS: 99223-AI; 99232-AI; 99233-AI; 99239; J0692; J2185; J3370; J7030; J7050

== ENCOUNTER 2021-07-09 14:32 | Inpatient (IN) | payer MEDICARE, BC ==
[~2021-07-09] VITALS: Ht 170.2 cm; Wt 90.5 kg
[~2021-07-09 14:32] MED LIST changes: +MERREM VIA500 MG/VIA IV
[2021-07-09 15:16] LABS: BASO # 0.1 K/mm3 (0.0-0.2); BASO % 0.3 % (0.0-2.0); EOS % 0.1 % (0.0-4.0); GRAN # 14.8 K/mm3 (1.4-6.5); GRAN % 89.4 % (42.2-75.2); LYMPH # 0.5 K/mm3 (1.2-3.4); LYMPH % 2.8 % (20.0-51.0); MEAN CELL VOLUME 99 fl (80.0-100.0); MEAN CORPUSCULAR HGB CONC 33 g/dl (33.0-37.0); MEAN PLATELET VOLUME 10.4 fl (7.4-10.4); MONO # 1.1 K/mm3 (0.1-0.6); MONO % 6.9 % (1.7-9.3); PLATELET COUNT 171 K/mm3 (130-400); RED BLOOD COUNT 2.95 M/mm3 (4.20-5.60)
[2021-07-09 15:19] LABS: HEMATOCRIT 29.1 % (42.0-52.0); HEMOGLOBIN 9.5 g/dl (13.5-18.0); MEAN CORPUSCULAR HEMOGLOBIN 32 pg (27-31)
[2021-07-09 15:36] LABS: ALBUMIN 2.8 gm/dL (3.4-4.8); BILIRUBIN,TOTAL 0.7 mg/dL (0.2-1.2); CALCIUM 8.2 mg/dL (8.4-10.2); CREATININE, serum 3.41 mg/dL (0.72-1.25); POTASSIUM 3.8 mmol/L (3.5-4.5); TOTAL PROTEIN 6.1 gm/dL (6.2-8.1)
[2021-07-09 15:47] LABS: TROPONIN-I 0.235 ng/mL (0.00-0.033)
[2021-07-09] MEDS ORDERED: COUMADIN 22.5 MG/TAB PO (17:27)
[2021-07-09] MEDS ORDERED: DEMADEX 20MG20 M1 PO (17:28)
[2021-07-09] MEDS ORDERED: COZAAR 50MG50 MG/TAB PO (17:28)
[2021-07-09] MEDS ORDERED: K-DUR20 MEQ PO (17:30)
[2021-07-09] MEDS ORDERED: SYNTHROID 0.0.025 MG PO (17:30)
[2021-07-09] MEDS ORDERED: ASPIRIN 81M81 MG/TA2 PO (17:31)
[2021-07-09 17:39] LABS: INR 3.8 (0.8-3.0); PROTHROMBIN TIME 42.5 SECONDS (9.7-12.8)
[2021-07-09 17:41] LABS: PARTIAL THROMBOPLASTIN TIME 41.2 SECONDS (26.0-37.0)
[2021-07-09 18:05] LABS: COLLECTION METHOD CLEAN CATCH
[2021-07-09 18:27] LABS: MUCOUS Present (NOT PRESENT); PH 5 (5-8); SQUAMOUS EPITHELIAL None Seen /hpf (0-10); URINE APPEARANCE Hazy (CLEAR/HAZY); URINE BACTERIA Rare /hpf (NONE SEEN); URINE BILIRUBIN Negative (NEGATIVE); URINE BLOOD 2+ (NEGATIVE); URINE COLOR Yellow (YELLOW); URINE GLUCOSE Negative (NEGATIVE); URINE KETONE Negative (NEGATIVE); URINE LEUKOCYTE ESTERASE 2+ (NEGATIVE); URINE NITRATE Positive (NEGATIVE); URINE PROTEIN(semi-quant) 1+ (NEGATIVE); URINE UROBILINOGEN Negative (NEGATIVE)
[2021-07-09 19:29] LABS: CHOLESTEROL RISK RATIO 2.7; MAGNESIUM 1.7 mg/dL (1.6-2.6)
[2021-07-09 19:50] LABS: THYROID STIMULATING HORMONE 3.092 uIU/mL (0.350-4.940)
[2021-07-10 07:57] LABS: BASO % 0.3 % (0.0-2.0); EOS # 0.2 K/mm3 (0.0-0.7); EOS % 1.7 % (0.0-4.0); GRAN # 8.8 K/mm3 (1.4-6.5); GRAN % 74.8 % (42.2-75.2); HEMATOCRIT 28.8 % (42.0-52.0); HEMOGLOBIN 9.6 g/dl (13.5-18.0); LYMPH # 1.3 K/mm3 (1.2-3.4); LYMPH % 11.3 % (20.0-51.0); MEAN CELL VOLUME 98 fl (80.0-100.0); MEAN CORPUSCULAR HEMOGLOBIN 33 pg (27-31); MEAN CORPUSCULAR HGB CONC 33 g/dl (33.0-37.0); MEAN PLATELET VOLUME 10.4 fl (7.4-10.4); MONO # 1.3 K/mm3 (0.1-0.6); MONO % 11.4 % (1.7-9.3); PLATELET COUNT 156 K/mm3 (130-400); RED BLOOD COUNT 2.95 M/mm3 (4.20-5.60); REDCELL DISTRIBUTION WIDTH-CV 14.1 % (11.5-14.5)
[2021-07-10 08:00] LABS: PROTHROMBIN TIME 45.2 SECONDS (9.7-12.8)
[2021-07-10 08:05] LABS: CALCIUM 8.2 mg/dL (8.4-10.2); CREATININE, serum 3.42 mg/dL (0.72-1.25); MAGNESIUM 1.8 mg/dL (1.6-2.6); POTASSIUM 3.6 mmol/L (3.5-4.5)
[2021-07-10 13:20] VITALS: BP 118/57; PULSE 60; TEMP 97.7
--- NOTE | 2021-07-10 13:20 | NUR ---
PT ADMITTED FROM ED FOR WEANKESS AND UTI. PT IS ORIENTED TO ROOM AND FLOOR. VSS. PT IS ON TELE SHOWING AV PACED. WILL CONTINUE TO MONITOR.
--- NOTE | 2021-07-10 13:55 | NUR ---
CARLITO MOREIRA WITH CARDIOLOGY NOTIFIED OF CONSULT.
[2021-07-10 15:28] VITALS: BP 92/47; PULSE 67; TEMP 98.4
--- NOTE | 2021-07-10 15:42 | NUR ---
PT'S PACER READ AND SENT TO KARINA WITH [employer].
[2021-07-10 19:47] VITALS: BP 107/62; PULSE 68; TEMP 98.7
[2021-07-10 22:22] VITALS: BP 124/72; PULSE 71; TEMP 98.9
--- NOTE | 2021-07-10 22:54 | NUR ---
Patient assessed around 1944. Alert and oriented, and able to make needs known. Denied pain and discomfort at that time, but did complain of headache around 2219 and given PRN Acetaminophen per orders. Denies SOB and dyspnea. LS CTA. HRR. Telemetry in place. BSAx4. No edema. IV site to left forearm infiltrated. Pulled out IV and restarted fluids to IV site on right forearm. Patient voices no questions, needs, or concerns at this time. Aware that he is NPO after midnight for Lexiscan tomorrow. In bed with call light within reach. Bed alarm on.
[2021-07-11] VITALS (11 sets, daily range): BP systolic 98–126; BP diastolic 56–78; PULSE 65–83; TEMP 97.8–98.9
--- NOTE | 2021-07-11 05:25 | NUR ---
Patient has recieved PRN Acetaminophen as requested for headache during the night. Denies any other pain or discomfort. Has been NPO since midnight for Lexiscan today. Did take medications with sips of water. Voices no questions, needs, or concerns at this time. IV fluids continue per orders. Patient sitting in recliner as requested. Call light within reach.
[2021-07-11 06:27] LABS: BASO % 0.2 % (0.0-2.0); EOS # 0.1 K/mm3 (0.0-0.7); EOS % 1.6 % (0.0-4.0); GRAN # 7.3 K/mm3 (1.4-6.5); HEMOGLOBIN 10.2 g/dl (13.5-18.0); LYMPH # 0.8 K/mm3 (1.2-3.4); LYMPH % 8.7 % (20.0-51.0); MEAN CELL VOLUME 100 fl (80.0-100.0); MEAN CORPUSCULAR HEMOGLOBIN 32 pg (27-31); MEAN CORPUSCULAR HGB CONC 32 g/dl (33.0-37.0); MEAN PLATELET VOLUME 10.8 fl (7.4-10.4); MONO # 0.7 K/mm3 (0.1-0.6); MONO % 8.2 % (1.7-9.3); PLATELET COUNT 159 K/mm3 (130-400); RED BLOOD COUNT 3.15 M/mm3 (4.20-5.60)
[2021-07-11 06:40] LABS: HEMATOCRIT 31.6 % (42.0-52.0)
[2021-07-11 06:42] LABS: CALCIUM 8.5 mg/dL (8.4-10.2); CREATININE, serum 3.22 mg/dL (0.72-1.25); MAGNESIUM 1.6 mg/dL (1.6-2.6); POTASSIUM 3.8 mmol/L (3.5-4.5); PROTHROMBIN TIME 34.4 SECONDS (9.7-12.8)
[2021-07-11 06:56] LABS: TROPONIN-I 0.27 ng/mL (0.00-0.033)
--- NOTE | 2021-07-11 09:55 | NUR ---
Pt assessment complete. Pt is laying in bed upon entry, A/O x4. His breathing is even and unlabored on RA. Pt denies SOB. Currently denies pain, or dizziness. POC discussed with patient, who will go for a lexiscan shortly. Maris AUSTIN, will replace when patient is back from procedure.
--- NOTE | 2021-07-11 10:19 | NUR ---
playground worker met with patient to discuss discharge plan. Patient reports that he lives at home alone in [place]. He reports that he is independent with his ADL's and does not utilize any DME to assist with mobility, however he does have a walker in his room. Patient reports that he does utilize oxygen for night time use and that it is managed throuh [facility]. PCP is Dr. Vasques and he [facility] for [facility] with no cost difficulty. Patient does have a DPOA-HC estbalished and a copy can be found in his EMR. It lists his daughter Vanessa ([phone]) as his agent. Patient is scheduled to have a stress test at 1000. OT is recommending home but he still needs to be evaluated by PT. Discharge plan: Home; pending PT kenton
[2021-07-11 12:37] LABS: CREATININE, serum 3.1 mg/dL (0.72-1.25)
[2021-07-11 12:38] LABS: FRACTIONAL EXCRETION OF NA+ 3.49 %
--- NOTE | 2021-07-11 18:24 | NUR ---
Pt had uneventful day. Discussed POC with him. Pollock replaced, 16FR started. IVF infusing. Denied any pain or concerns. On isolation precautions. No needs at this time.
--- NOTE | 2021-07-11 21:47 | NUR ---
Patient assessed around 2009. Alert and oriented x 4, and able to make needs known. Denies having pain and discomfort at this time. Peripheral IV with IV fluids running per orders. Denies SOB and dypsnea. LS CTA. HRR. Telemetry in place. Indwelling pedersen cather with cloudy yellow urine via dependent drainage. Voices no questions, needs, or concerns at this time. In bed with call light within reach. Bed alarm on.
[2021-07-12 04:16] VITALS: BP 117/58; PULSE 60; TEMP 97.9
--- NOTE | 2021-07-12 06:04 | NUR ---
Continues on IV fluids per orders. Denies pain and discomfort this shift. Urine continues to be cloudy and yellow. Voices no questions, needs, or concerns at this time. Remains on contact isolation per orders. In bed with call light within reach. Bed alarm on.
[2021-07-12 07:04] LABS: BASO % 0.4 % (0.0-2.0); EOS # 0.2 K/mm3 (0.0-0.7); EOS % 2.3 % (0.0-4.0); GRAN # 5.1 K/mm3 (1.4-6.5); GRAN % 70.1 % (42.2-75.2); LYMPH % 13.2 % (20.0-51.0); MEAN CELL VOLUME 98 fl (80.0-100.0); MEAN CORPUSCULAR HGB CONC 33 g/dl (33.0-37.0); MEAN PLATELET VOLUME 10.4 fl (7.4-10.4); MONO % 13.6 % (1.7-9.3); PLATELET COUNT 143 K/mm3 (130-400); RED BLOOD COUNT 2.94 M/mm3 (4.20-5.60); REDCELL DISTRIBUTION WIDTH-CV 13.8 % (11.5-14.5)
[2021-07-12 07:09] LABS: HEMATOCRIT 28.8 % (42.0-52.0); HEMOGLOBIN 9.6 g/dl (13.5-18.0); MEAN CORPUSCULAR HEMOGLOBIN 33 pg (27-31)
[2021-07-12 07:10] LABS: INR 2.9 (0.8-3.0); PROTHROMBIN TIME 33.3 SECONDS (9.7-12.8)
[2021-07-12 07:16] LABS: CALCIUM 8.3 mg/dL (8.4-10.2); CREATININE, serum 2.84 mg/dL (0.72-1.25); MAGNESIUM 1.6 mg/dL (1.6-2.6); POTASSIUM 3.4 mmol/L (3.5-4.5)
[2021-07-12 07:54] VITALS: BP 155/77; PULSE 79; TEMP 97.8
--- NOTE | 2021-07-12 08:26 | NUR ---
PT RESTING IN BED. MORNING MEDICATIONS GIVEN. SHIFT ASSESSMENT COMPLETED. PT COMPLAINS OF A TINGLING SENSATION TO HIS L HEEL. DICKINSON CATHETER DRAINING WELL. DENIES ANY NEEDS AT THIS TIME. WILL CONTINUE TO MONITOR.
[2021-07-12 11:24] VITALS: BP 117/68; PULSE 71; TEMP 97.8
[2021-07-12 15:15] VITALS: BP 116/67; PULSE 64; TEMP 97.6
[2021-07-12 19:24] VITALS: BP 113/59; PULSE 59; TEMP 98.1
--- NOTE | 2021-07-12 22:18 | NUR ---
I received in report that pt wears home cpap and knows settings. When I visited with pt he stated that he does wear one but stated that his setting is 2. I told him that BIPAP settings are 2 numbers like 15/5, he stated all he knows is 2. Pt stated that someone might be able to bring his unit from home. When pts daughter called back she said that he's been in this hospital lately and they did not bring his machine from home. I told her that I would look and see if I could find any past records. Upon searching previous [facility] records for past admissions, I can not find any previous records of this pt wearing CPAP or BIPAP here. Order does not include settings and Pt and Daughter are unable to give home settings for reference. We will continue to monitor pt O2 saturations and notify provider if any signs of distress are present.
--- NOTE | 2021-07-12 23:00 | NUR ---
MADAY Cardenas contacted and aware of details in previous note. Okay for pt to be on room air as tolerated and notify provider for further orders if pt does not tolerate.
--- NOTE | 2021-07-12 23:18 | NUR ---
AAO NO C/O PAIN OR DISCOMFORT PATIENT CONTINUES ON CONTACT PRECAUTIONS FOR ESBL IN THE URINE DICKINSON CATHETER PATENT BAG BELOW BLADDER. ENCOURAGING FLUIDS WHILE AWAKE. NO S/S OF SOB OR DISTRESS, PATIENT DID STATE HE AMBULATED TODAY WHICH HE TOLERATED WELL. PATIENT REMAINS ON IV ABX AND NS 75ML/HR. CALL LIGHT WITHIN REACH WILL CONTINUE TO MONITOR.
[2021-07-12 23:37] VITALS: BP 116/61; PULSE 59; TEMP 98.1
[2021-07-13 03:29] VITALS: BP 124/70; PULSE 65; TEMP 97.7
--- NOTE | 2021-07-13 05:57 | NUR ---
patient did have a hard time sleeping last night. c/o headache prn tylenol provided. patient was able to take a little nap and was awake around 0300. Stated he was able to get comfortable in the bed encouraging fluids while awake. no further headache noted will continue to monitor.
--- NOTE | 2021-07-13 06:45 | NUR ---
Report received, assumed care for day shift.
[2021-07-13 06:46] LABS: BASO % 0.3 % (0.0-2.0); EOS # 0.3 K/mm3 (0.0-0.7); EOS % 4.2 % (0.0-4.0); GRAN # 4.3 K/mm3 (1.4-6.5); GRAN % 63.2 % (42.2-75.2); HEMATOCRIT 31.9 % (42.0-52.0); HEMOGLOBIN 10.3 g/dl (13.5-18.0); LYMPH # 1.3 K/mm3 (1.2-3.4); LYMPH % 18.2 % (20.0-51.0); MEAN CELL VOLUME 100 fl (80.0-100.0); MEAN CORPUSCULAR HEMOGLOBIN 32 pg (27-31); MEAN CORPUSCULAR HGB CONC 32 g/dl (33.0-37.0); MEAN PLATELET VOLUME 10.5 fl (7.4-10.4); MONO # 0.9 K/mm3 (0.1-0.6); MONO % 13.7 % (1.7-9.3); PLATELET COUNT 160 K/mm3 (130-400); RED BLOOD COUNT 3.19 M/mm3 (4.20-5.60); REDCELL DISTRIBUTION WIDTH-CV 13.9 % (11.5-14.5)
[2021-07-13 07:00] LABS: INR 2.5 (0.8-3.0); PROTHROMBIN TIME 28.5 SECONDS (9.7-12.8)
[2021-07-13 07:07] LABS: CALCIUM 8.4 mg/dL (8.4-10.2); CREATININE, serum 2.58 mg/dL (0.72-1.25); POTASSIUM 3.4 mmol/L (3.5-4.5)
--- NOTE | 2021-07-13 07:20 | NUR ---
Assessment complete. A&Ox3. Denies pain/nausea/short of breath. VS remain stable. Tele reporting paced. Right forearm with NS@75ml/hr infusing without difficulty. Currently on RA. Pollock cath with clear yellow urine. Plan of care discussed for this shift to include meds/vitals/calling for questions/concerns. Verbalizes understanding. Call light in reach. Will monitor.
[2021-07-13 07:26] LABS: MAGNESIUM 1.6 mg/dL (1.6-2.6)
[2021-07-13 07:55] VITALS: BP 124/63; PULSE 61; TEMP 97.4
--- NOTE | 2021-07-13 10:06 | NUR ---
Up to shower at this time with PCT. Tolerated well.
--- NOTE | 2021-07-13 10:27 | NUR ---
Order for K protocol clarified with Dr. Harrison-patient received a scheduled dose of potassium this AM. One dose ordered at this time per low GFR protocol.
--- NOTE | 2021-07-13 10:47 | NUR ---
Dr Andrews at bedside.
[2021-07-13] MEDS ORDERED: AMOXICILLIN 8751 TAB PO (11:27)
[2021-07-13] MEDS ORDERED: COUMADIN 2MG2 MG/TAB PO (11:28)
[2021-07-13 11:41] VITALS: BP 123/62; PULSE 61; TEMP 97.6
--- NOTE | 2021-07-13 13:25 | NUR ---
Leg bag given with instruction on use. Switched out at this time per request. INT to left forearm DCd-cath intact. Waiting on daughter to arrive to provide appointments and discharge isntructions per patients request.
--- NOTE | 2021-07-13 13:53 | NUR ---
Discharge instructions given both verbal and handwritten to both patient and daughter. F/U appt discussed. Home medications/fluid increase/s/s to return to hospital. Verbalizes understanding/denies quesitons/concerns. Waiting on arrival of walker before leaving. Will monitor.
--- NOTE | 2021-07-13 14:33 | NUR ---
Escorted off floor in wheelchair with daughter and EDILSON Moore in stable condition. Walker arrived.
== END 2021-07-13 14:35 | disposition home or self-care (01) | DRG 689 ==
LOC: COL.ER 14:32 → MEDICAL 07-10 12:31
PROVIDERS: Family Medicine; Physician Assistant; Student in an Organized Health Care Education/Training Program; ADMIT Family Medicine
DX: N39.0 Urinary tract infection, site not specified (principal); I21.A1 Myocardial infarction type 2; N17.9 Acute kidney failure, unspecified; I13.0 Hypertensive heart and chronic kidney disease with heart failure and stage 1 through stage 4 chronic kidney disease, or unspecified chronic kidney disease; I50.22 Chronic systolic (congestive) heart failure; N18.30 Chronic kidney disease, stage 3 unspecified; J96.10 Chronic respiratory failure, unspecified whether with hypoxia or hypercapnia; I42.9 Cardiomyopathy, unspecified; R32 Unspecified urinary incontinence; E03.9 Hypothyroidism, unspecified; I48.91 Unspecified atrial fibrillation; J44.9 Chronic obstructive pulmonary disease, unspecified; G47.33 Obstructive sleep apnea (adult) (pediatric); I73.9 Peripheral vascular disease, unspecified; D64.9 Anemia, unspecified; B96.20 Unspecified Escherichia coli [E. coli] as the cause of diseases classified elsewhere; K21.9 Gastro-esophageal reflux disease without esophagitis; E87.6 Hypokalemia; Z96.653 Presence of artificial knee joint, bilateral; Z95.0 Presence of cardiac pacemaker; Z95.4 Presence of other heart-valve replacement; Z79.01 Long term (current) use of anticoagulants; Z23 Encounter for immunization
CPT/HCPCS: 99223-AI; 99232-AI; 99233-AI; 99239; A4314; A9500; J0295; J0696; J2185; J2785; J7030

== ENCOUNTER 2021-08-12 11:30 | Inpatient (IN) | payer MEDICARE, BC ==
[~2021-08-12] VITALS: Ht 170.2 cm; Wt 92.4 kg
[~2021-08-12 11:30] MED LIST changes: +AMOXICILLIN 8751 TAB PO; +K-DUR20 MEQ PO; +SYNTHROID 0.0.025 MG PO
[2021-08-12 11:52] LABS: COLLECTION METHOD CLEAN CATCH
[2021-08-12 12:07] LABS: BASO % 0.2 % (0.0-2.0); EOS % 0.1 % (0.0-4.0); GRAN # 13.6 K/mm3 (1.4-6.5); GRAN % 87.1 % (42.2-75.2); HEMOGLOBIN 10.2 g/dl (13.5-18.0); LYMPH # 0.6 K/mm3 (1.2-3.4); LYMPH % 3.8 % (20.0-51.0); MEAN CELL VOLUME 97 fl (80.0-100.0); MEAN CORPUSCULAR HEMOGLOBIN 32 pg (27-31); MEAN CORPUSCULAR HGB CONC 33 g/dl (33.0-37.0); MEAN PLATELET VOLUME 10.4 fl (7.4-10.4); MONO # 1.3 K/mm3 (0.1-0.6); MONO % 8.2 % (1.7-9.3); PLATELET COUNT 161 K/mm3 (130-400); RED BLOOD COUNT 3.18 M/mm3 (4.20-5.60); REDCELL DISTRIBUTION WIDTH-CV 13.5 % (11.5-14.5)
[2021-08-12 12:09] LABS: HEMATOCRIT 30.9 % (42.0-52.0)
[2021-08-12 12:10] LABS: MUCOUS Present (NOT PRESENT); PH 5 (5-8); SQUAMOUS EPITHELIAL None Seen /hpf (0-10); URINE APPEARANCE Turbid (CLEAR/HAZY); URINE BACTERIA Moderate /hpf (NONE SEEN); URINE BILIRUBIN Negative (NEGATIVE); URINE BLOOD 3+ (NEGATIVE); URINE COLOR Yellow (YELLOW); URINE GLUCOSE Negative (NEGATIVE); URINE KETONE Negative (NEGATIVE); URINE LEUKOCYTE ESTERASE 3+ (NEGATIVE); URINE NITRATE Positive (NEGATIVE); URINE PROTEIN(semi-quant) 1+ (NEGATIVE); URINE RBC 20-50 /hpf (0-2); URINE UROBILINOGEN Negative (NEGATIVE)
[2021-08-12 12:34] LABS: ALBUMIN 3.1 gm/dL (3.4-4.8); BILIRUBIN,TOTAL 0.9 mg/dL (0.2-1.2); CALCIUM 8.6 mg/dL (8.4-10.2); CREATININE, serum 2.72 mg/dL (0.72-1.25); POTASSIUM 3.9 mmol/L (3.5-4.5); TOTAL PROTEIN 6.9 gm/dL (6.2-8.1)
[2021-08-12 12:52] LABS: INR 3.2 (0.8-3.0); PROTHROMBIN TIME 37.2 SECONDS (9.7-12.8)
[2021-08-12] MEDS ORDERED: MYLANTA COAT-C355 ML PO (13:46)
[2021-08-12] MEDS ORDERED: DULCOLAX S10 MG/SUPP RC (13:48)
[2021-08-12] MEDS ORDERED: CLOTRIMAZOLE ANTIF1% TP (13:49)
[2021-08-12] MEDS ORDERED: DEBROX OT (13:50)
[2021-08-12 15:29] VITALS: BP 115/48; PULSE 67; TEMP 97.8
[2021-08-12] MEDS ORDERED: DEMADEX 20MG20 M1 PO (17:55)
[2021-08-12 20:27] VITALS: BP 107/55; PULSE 66; TEMP 99.9
[2021-08-13 00:15] VITALS: BP 112/58; PULSE 62; TEMP 98.5
[2021-08-13 04:22] VITALS: BP 128/67; PULSE 76; TEMP 98.9
[2021-08-13 05:54] LABS: BASO % 0.3 % (0.0-2.0); EOS # 0.1 K/mm3 (0.0-0.7); EOS % 0.5 % (0.0-4.0); GRAN # 9.2 K/mm3 (1.4-6.5); GRAN % 83.5 % (42.2-75.2); HEMOGLOBIN 10.1 g/dl (13.5-18.0); LYMPH # 0.7 K/mm3 (1.2-3.4); LYMPH % 6.7 % (20.0-51.0); MEAN CELL VOLUME 96 fl (80.0-100.0); MEAN CORPUSCULAR HEMOGLOBIN 32 pg (27-31); MEAN CORPUSCULAR HGB CONC 33 g/dl (33.0-37.0); MEAN PLATELET VOLUME 10.8 fl (7.4-10.4); MONO # 0.9 K/mm3 (0.1-0.6); MONO % 8.5 % (1.7-9.3); PLATELET COUNT 161 K/mm3 (130-400); RED BLOOD COUNT 3.16 M/mm3 (4.20-5.60); REDCELL DISTRIBUTION WIDTH-CV 13.5 % (11.5-14.5)
[2021-08-13 06:00] LABS: INR 3.8 (0.8-3.0); PROTHROMBIN TIME 44.8 SECONDS (9.7-12.8)
[2021-08-13 06:03] LABS: HEMATOCRIT 30.2 % (42.0-52.0)
[2021-08-13 06:06] LABS: ALBUMIN 2.7 gm/dL (3.4-4.8); CALCIUM 8.4 mg/dL (8.4-10.2); CREATININE, serum 2.7 mg/dL (0.72-1.25); POTASSIUM 3.8 mmol/L (3.5-4.5)
[2021-08-13 07:45] VITALS: BP 129/70; PULSE 62; TEMP 99.1
[2021-08-13] MEDS ORDERED: K-TAB20 PO (08:54)
[2021-08-13 12:11] VITALS: BP 158/87; PULSE 63; TEMP 98.1
[2021-08-13 15:47] VITALS: BP 132/66; PULSE 59; TEMP 98.3
[2021-08-13 23:00] VITALS: BP 106/56; PULSE 63; TEMP 99.7
[2021-08-14] VITALS: BP 106/56; PULSE 62; TEMP 98.9
[2021-08-14 04:09] VITALS: BP 124/61; PULSE 62; TEMP 98.8
[2021-08-14 06:29] LABS: BASO # 0.1 K/mm3 (0.0-0.2); BASO % 0.6 % (0.0-2.0); EOS # 0.2 K/mm3 (0.0-0.7); EOS % 2.3 % (0.0-4.0); GRAN # 7.4 K/mm3 (1.4-6.5); GRAN % 73.9 % (42.2-75.2); LYMPH # 1.1 K/mm3 (1.2-3.4); LYMPH % 10.9 % (20.0-51.0); MEAN CELL VOLUME 95 fl (80.0-100.0); MEAN CORPUSCULAR HGB CONC 33 g/dl (33.0-37.0); MEAN PLATELET VOLUME 10.8 fl (7.4-10.4); MONO # 1.2 K/mm3 (0.1-0.6); MONO % 11.7 % (1.7-9.3); PLATELET COUNT 162 K/mm3 (130-400); RED BLOOD COUNT 3.07 M/mm3 (4.20-5.60); REDCELL DISTRIBUTION WIDTH-CV 13.7 % (11.5-14.5)
[2021-08-14 06:31] LABS: HEMATOCRIT 29.3 % (42.0-52.0); HEMOGLOBIN 9.7 g/dl (13.5-18.0); MEAN CORPUSCULAR HEMOGLOBIN 32 pg (27-31)
[2021-08-14 06:57] LABS: ALBUMIN 2.4 gm/dL (3.4-4.8); CALCIUM 8.1 mg/dL (8.4-10.2); CREATININE, serum 2.5 mg/dL (0.72-1.25); PHOSPHOROUS 2.6 mg/dL (2.3-4.7); POTASSIUM 3.5 mmol/L (3.5-4.5)
[2021-08-14 07:02] LABS: INR 3.9 (0.8-3.0)
[2021-08-14 08:02] VITALS: BP 148/73; PULSE 63; TEMP 97.3
[2021-08-14 11:30] VITALS: BP 135/75; PULSE 65; TEMP 98.9
[2021-08-14 15:32] VITALS: BP 157/94; PULSE 60; TEMP 98.4
[2021-08-14 20:45] VITALS: BP 136/68; PULSE 65; TEMP 98.9
[2021-08-15] VITALS (9 sets, daily range): BP systolic 113–159; BP diastolic 50–106; PULSE 59–69; TEMP 97.5–98.7
[2021-08-15 06:48] LABS: BASO # 0.1 K/mm3 (0.0-0.2); BASO % 0.6 % (0.0-2.0); EOS # 0.3 K/mm3 (0.0-0.7); EOS % 3.6 % (0.0-4.0); GRAN # 6.1 K/mm3 (1.4-6.5); GRAN % 68.4 % (42.2-75.2); LYMPH # 1.3 K/mm3 (1.2-3.4); LYMPH % 14.7 % (20.0-51.0); MEAN CELL VOLUME 97 fl (80.0-100.0); MEAN CORPUSCULAR HEMOGLOBIN 32 pg (27-31); MEAN CORPUSCULAR HGB CONC 33 g/dl (33.0-37.0); MEAN PLATELET VOLUME 10.8 fl (7.4-10.4); MONO # 1.1 K/mm3 (0.1-0.6); MONO % 12.2 % (1.7-9.3); PLATELET COUNT 164 K/mm3 (130-400); RED BLOOD COUNT 3.15 M/mm3 (4.20-5.60); REDCELL DISTRIBUTION WIDTH-CV 13.7 % (11.5-14.5)
[2021-08-15 06:57] LABS: HEMATOCRIT 30.4 % (42.0-52.0); INR 3.6 (0.8-3.0); PROTHROMBIN TIME 42.4 SECONDS (9.7-12.8)
[2021-08-15 08:17] LABS: ALBUMIN 2.5 gm/dL (3.4-4.8); CALCIUM 8.9 mg/dL (8.4-10.2); CREATININE, serum 2.38 mg/dL (0.72-1.25); MAGNESIUM 2.1 mg/dL (1.6-2.6); POTASSIUM 3.4 mmol/L (3.5-4.5)
[2021-08-16 03:50] VITALS: BP 113/65; PULSE 65; TEMP 98.2
[2021-08-16 06:26] LABS: BASO # 0.1 K/mm3 (0.0-0.2); BASO % 0.8 % (0.0-2.0); EOS # 0.3 K/mm3 (0.0-0.7); EOS % 3.3 % (0.0-4.0); GRAN # 5.7 K/mm3 (1.4-6.5); GRAN % 71.1 % (42.2-75.2); HEMOGLOBIN 10.1 g/dl (13.5-18.0); LYMPH % 12.9 % (20.0-51.0); MEAN CELL VOLUME 97 fl (80.0-100.0); MEAN CORPUSCULAR HEMOGLOBIN 32 pg (27-31); MEAN CORPUSCULAR HGB CONC 33 g/dl (33.0-37.0); MEAN PLATELET VOLUME 10.8 fl (7.4-10.4); MONO # 0.9 K/mm3 (0.1-0.6); MONO % 11.3 % (1.7-9.3); PLATELET COUNT 177 K/mm3 (130-400); RED BLOOD COUNT 3.18 M/mm3 (4.20-5.60); REDCELL DISTRIBUTION WIDTH-CV 13.6 % (11.5-14.5)
[2021-08-16 06:29] LABS: ALBUMIN 2.5 gm/dL (3.4-4.8); CALCIUM 8.8 mg/dL (8.4-10.2); CREATININE, serum 2.11 mg/dL (0.72-1.25); MAGNESIUM 2.2 mg/dL (1.6-2.6); PHOSPHOROUS 2.8 mg/dL (2.3-4.7); POTASSIUM 3.9 mmol/L (3.5-4.5)
[2021-08-16 06:34] LABS: HEMATOCRIT 30.8 % (42.0-52.0)
[2021-08-16 07:25] VITALS: BP 137/69; PULSE 67; TEMP 97.5
[2021-08-16 08:16] LABS: INR 3.4 (0.8-3.0)
[2021-08-16 12:07] VITALS: BP 120/61; PULSE 62; TEMP 97.4
[2021-08-16 15:57] VITALS: BP 142/68; PULSE 63; TEMP 97.5
[2021-08-16 21:48] VITALS: BP 129/63; PULSE 62; TEMP 98.4
[2021-08-17] VITALS (7 sets, daily range): BP systolic 123–143; BP diastolic 58–72; PULSE 60–78; TEMP 97.4–98.4
[2021-08-17 05:57] LABS: BASO # 0.1 K/mm3 (0.0-0.2); BASO % 0.6 % (0.0-2.0); EOS # 0.4 K/mm3 (0.0-0.7); EOS % 4.9 % (0.0-4.0); GRAN # 5.2 K/mm3 (1.4-6.5); GRAN % 66.1 % (42.2-75.2); LYMPH # 1.3 K/mm3 (1.2-3.4); LYMPH % 16.1 % (20.0-51.0); MEAN CELL VOLUME 99 fl (80.0-100.0); MEAN CORPUSCULAR HGB CONC 32 g/dl (33.0-37.0); MEAN PLATELET VOLUME 10.4 fl (7.4-10.4); MONO # 0.9 K/mm3 (0.1-0.6); MONO % 11.7 % (1.7-9.3); PLATELET COUNT 196 K/mm3 (130-400); RED BLOOD COUNT 3.16 M/mm3 (4.20-5.60); REDCELL DISTRIBUTION WIDTH-CV 13.6 % (11.5-14.5)
[2021-08-17 06:21] LABS: HEMATOCRIT 31.2 % (42.0-52.0); HEMOGLOBIN 9.9 g/dl (13.5-18.0); MEAN CORPUSCULAR HEMOGLOBIN 31 pg (27-31)
[2021-08-17 06:33] LABS: ALBUMIN 2.4 gm/dL (3.4-4.8); CALCIUM 8.6 mg/dL (8.4-10.2); CREATININE, serum 1.79 mg/dL (0.72-1.25); MAGNESIUM 2.2 mg/dL (1.6-2.6); PHOSPHOROUS 2.4 mg/dL (2.3-4.7); POTASSIUM 3.7 mmol/L (3.5-4.5)
[2021-08-17 07:59] LABS: INR 2.6 (0.8-3.0); PROTHROMBIN TIME 30.5 SECONDS (9.7-12.8)
[2021-08-18 03:47] VITALS: BP 138/69; PULSE 96; TEMP 98
[2021-08-18 07:27] VITALS: BP 140/67; PULSE 64; TEMP 97.5
[2021-08-18 07:53] LABS: INR 2.2 (0.8-3.0); PROTHROMBIN TIME 25.4 SECONDS (9.7-12.8)
[2021-08-18] MEDS ORDERED: COUMADIN 1MG1 MG/TAB PO (09:04)
[2021-08-18] MEDS ORDERED: INVANZ INJ1 G/VIAL IV (09:04)
[2021-08-18] MEDS ORDERED: PROBIOTIC ACID1 EAC3 PO (09:06)
[2021-08-18] MEDS ORDERED: DEMADEX 20MG20 M1 PO (09:08)
[2021-08-18] MEDS ORDERED: K-DUR 10 MEQ T10 MEQ PO (09:10)
[2021-08-18 11:59] VITALS: BP 120/58; PULSE 68; TEMP 97.3
== END 2021-08-18 13:30 | disposition home health service (06) | DRG 690 ==
LOC: COL.ER 11:30 → SURG 13:23
PROVIDERS: Emergency Medicine; Internal Medicine; Physician Assistant; ADMIT Student in an Organized Health Care Education/Training Program
PROC: 02HV33Z Insertion of Infusion Device into Superior Vena Cava, Percutaneous Approach (ICD-10-PCS; principal; 2021-08-18)
DX: N39.0 Urinary tract infection, site not specified (principal); I13.0 Hypertensive heart and chronic kidney disease with heart failure and stage 1 through stage 4 chronic kidney disease, or unspecified chronic kidney disease; I50.22 Chronic systolic (congestive) heart failure; J96.10 Chronic respiratory failure, unspecified whether with hypoxia or hypercapnia; Z16.12 Extended spectrum beta lactamase (ESBL) resistance; I48.91 Unspecified atrial fibrillation; G89.29 Other chronic pain; Z66 Do not resuscitate; M25.562 Pain in left knee; M25.561 Pain in right knee; N18.9 Chronic kidney disease, unspecified; J44.9 Chronic obstructive pulmonary disease, unspecified; G47.33 Obstructive sleep apnea (adult) (pediatric); E03.9 Hypothyroidism, unspecified; I73.9 Peripheral vascular disease, unspecified; R32 Unspecified urinary incontinence; B96.20 Unspecified Escherichia coli [E. coli] as the cause of diseases classified elsewhere; E87.6 Hypokalemia; Z96.653 Presence of artificial knee joint, bilateral; Z99.81 Dependence on supplemental oxygen; Z95.4 Presence of other heart-valve replacement; Z95.0 Presence of cardiac pacemaker; Z79.01 Long term (current) use of anticoagulants
CPT/HCPCS: 99232-AI; 99233-AI; 99239; C1751; C1892; G0378; J0295; J1335; J2185; J2543

== ENCOUNTER 2021-08-21 10:00 | Outpatient (RCR) | payer MEDICARE, BC ==
[2021-08-19 10:52] VITALS: BP 134/62; PULSE 67; TEMP 98.6
[2021-08-20 10:11] VITALS: BP 133/80; PULSE 74; TEMP 98
[~2021-08-21] VITALS: Ht 170.2 cm; Wt 91.0 kg
[~2021-08-21 10:00] MED LIST changes: +CLOTRIMAZOLE ANTIF1% TP; +COUMADIN 1MG1 MG/TAB PO; +DEBROX OT; +DULCOLAX S10 MG/SUPP RC; +INVANZ INJ1 G/VIAL IV; +K-DUR 10 MEQ T10 MEQ PO; +K-TAB20 PO; +MYLANTA COAT-C355 ML PO; +PROBIOTIC ACID1 EAC3 PO
--- NOTE | 2021-08-22 10:26 | NUR ---
Report received from ED Charge nurse pt to transfer to SNF this morning from ER.
== END 2021-08-22 10:26 ==
LOC: EUO 10:00
DX: N39.0 Urinary tract infection, site not specified (principal)
CPT/HCPCS: J1335

== ENCOUNTER 2021-08-21 11:00 | Emergency (ER) | payer MEDICARE, BC ==
[~2021-08-21] VITALS: Ht 170.2 cm; Wt 90.9 kg
[2021-08-21 11:02] VITALS: TEMP 98
[2021-08-21 11:30] LABS: BASO # 0.1 K/mm3 (0.0-0.2); BASO % 0.6 % (0.0-2.0); EOS # 0.2 K/mm3 (0.0-0.7); EOS % 2.4 % (0.0-4.0); GRAN # 7.5 K/mm3 (1.4-6.5); GRAN % 76.4 % (42.2-75.2); HEMATOCRIT 29.3 % (42.0-52.0); HEMOGLOBIN 9.6 g/dl (13.5-18.0); LYMPH # 1.2 K/mm3 (1.2-3.4); LYMPH % 12.3 % (20.0-51.0); MEAN CELL VOLUME 96 fl (80.0-100.0); MEAN CORPUSCULAR HEMOGLOBIN 31 pg (27-31); MEAN CORPUSCULAR HGB CONC 33 g/dl (33.0-37.0); MONO # 0.7 K/mm3 (0.1-0.6); MONO % 7.5 % (1.7-9.3); PLATELET COUNT 218 K/mm3 (130-400); RED BLOOD COUNT 3.06 M/mm3 (4.20-5.60); REDCELL DISTRIBUTION WIDTH-CV 13.7 % (11.5-14.5)
[2021-08-21 11:38] LABS: INR 1.5 (0.8-3.0); PROTHROMBIN TIME 17.3 SECONDS (9.7-12.8)
[2021-08-21 11:40] LABS: COLLECTION METHOD IN
[2021-08-21 11:40] LABS: PARTIAL THROMBOPLASTIN TIME 36.7 SECONDS (26.0-37.0)
[2021-08-21 11:44] LABS: ALBUMIN 2.8 gm/dL (3.4-4.8); BILIRUBIN,TOTAL 0.6 mg/dL (0.2-1.2); CALCIUM 8.6 mg/dL (8.4-10.2); CREATININE, serum 2.07 mg/dL (0.72-1.25); POTASSIUM 4.4 mmol/L (3.5-4.5); TOTAL PROTEIN 6.6 gm/dL (6.2-8.1)
[2021-08-21 11:45] LABS: MUCOUS Present (NOT PRESENT); PH 6 (5-8); SQUAMOUS EPITHELIAL None Seen /hpf (0-10); URINE APPEARANCE Clear (CLEAR/HAZY); URINE BACTERIA Rare /hpf (NONE SEEN); URINE BILIRUBIN Negative (NEGATIVE); URINE BLOOD Negative (NEGATIVE); URINE COLOR Straw (YELLOW); URINE GLUCOSE Negative (NEGATIVE); URINE KETONE Negative (NEGATIVE); URINE LEUKOCYTE ESTERASE Negative (NEGATIVE); URINE NITRATE Negative (NEGATIVE); URINE PROTEIN(semi-quant) Negative (NEGATIVE); URINE RBC 0-2 /hpf (0-2); URINE UROBILINOGEN Negative (NEGATIVE)
[2021-08-21 11:52] LABS: TROPONIN-I 0.303 ng/mL (0.00-0.033)
--- NOTE | 2021-08-21 13:04 | NUR ---
GUNNER notified by patient's Rn that he is wanting placement and not wanting to go home. Patient recently admitted to this facility and had 3 midnights. Contact made with Jeff at [facility] who states that they do have beds and is willing to look over the patient's information. Clinical referral faxed. Patient's RN notified.
--- NOTE | 2021-08-21 14:35 | NUR ---
Clinical referral also sent to Bina at [facility]. Contact made with Gauri at [facility] who states that she only has one SNF room at this time and has another patient who is from their independent living in review for it. Phone call made and message left for Jeff at [facility] to follow up on referral.
--- NOTE | 2021-08-21 15:01 | NUR ---
Clinical inpatient information from last admission faxed to Jeff at [facility].
--- NOTE | 2021-08-21 15:20 | NUR ---
Message left for Jeff to get an update.
--- NOTE | 2021-08-21 16:08 | NUR ---
supervisor cemetery workers notified by Jeff at [facility] that he is waiting to hear from his nursing staff. Bina with [facility] contacted who states that they would be able to clinically accept for nursing but she needs to follow up with financials.
--- NOTE | 2021-08-21 16:28 | NUR ---
Jeff with [facility] called and notified me that they are able to accept this patient as long as his insurance is active. Jeff states that transportation will be able to pick the patient up between 8am and 9pm. Patient's RN and warehouse engineer notified. Patient's daughter notified.
--- NOTE | 2021-08-22 08:52 | NUR ---
GUNNER faxed admitting order and ER updates to Jeff at [facility]. Jeff states transportation will be here to pick the patient up by 9am. Notified Jeff that their staff is here dropping off a different patient and asked if that transportation can pick this patient up. Jeff asks if she can [place] one of our wheelchairs to transport the patient and they will bring it back. Approval obtained from [facility] that we can do this. Patient picked up and discharged to [facility]. Family notified.
[2021-08-22 10:38] VITALS: BP 124/78; PULSE 61
== END 2021-08-22 10:38 ==
LOC: COL.ER 11:00
PROVIDERS: Emergency Medicine
DX: R53.1 Weakness (principal); R77.8 Other specified abnormalities of plasma proteins; N39.0 Urinary tract infection, site not specified; D64.9 Anemia, unspecified; I48.91 Unspecified atrial fibrillation; Z79.01 Long term (current) use of anticoagulants; Z20.822 Contact with and (suspected) exposure to COVID-19; G47.33 Obstructive sleep apnea (adult) (pediatric); Z99.89 Dependence on other enabling machines and devices; Z95.9 Presence of cardiac and vascular implant and graft, unspecified; Z88.1 Allergy status to other antibiotic agents
CPT/HCPCS: J1335; J7040

== ENCOUNTER 2021-09-04 10:54 | Emergency (ER) | payer MEDICARE, BC ==
[~2021-09-04] VITALS: Ht 170.2 cm; Wt 90.9 kg
[2021-09-04 11:35] VITALS: TEMP 97.9
[2021-09-04 12:40] LABS: BASO # 0.1 K/mm3 (0.0-0.2); BASO % 0.8 % (0.0-2.0); EOS # 0.4 K/mm3 (0.0-0.7); EOS % 4.3 % (0.0-4.0); GRAN # 5.6 K/mm3 (1.4-6.5); GRAN % 63.4 % (42.2-75.2); HEMOGLOBIN 10.3 g/dl (13.5-18.0); INR 3.5 (0.8-3.0); LYMPH # 1.9 K/mm3 (1.2-3.4); LYMPH % 21.9 % (20.0-51.0); MEAN CELL VOLUME 98 fl (80.0-100.0); MEAN CORPUSCULAR HEMOGLOBIN 31 pg (27-31); MEAN CORPUSCULAR HGB CONC 32 g/dl (33.0-37.0); MEAN PLATELET VOLUME 10.4 fl (7.4-10.4); MONO # 0.8 K/mm3 (0.1-0.6); MONO % 9.3 % (1.7-9.3); PLATELET COUNT 171 K/mm3 (130-400); PROTHROMBIN TIME 40.2 SECONDS (9.7-12.8); RED BLOOD COUNT 3.32 M/mm3 (4.20-5.60); REDCELL DISTRIBUTION WIDTH-CV 13.3 % (11.5-14.5)
[2021-09-04 12:43] LABS: HEMATOCRIT 32.5 % (42.0-52.0)
[2021-09-04 12:53] LABS: ALBUMIN 3.1 gm/dL (3.4-4.8); BILIRUBIN,TOTAL 0.6 mg/dL (0.2-1.2); C-REACTIVE PROTEIN 1.61 mg/dL (0.00-0.50); CALCIUM 8.8 mg/dL (8.4-10.2); CREATININE, serum 2.6 mg/dL (0.72-1.25); POTASSIUM 4.1 mmol/L (3.5-4.5); TOTAL PROTEIN 7.1 gm/dL (6.2-8.1)
[2021-09-04 13:00] LABS: COLLECTION METHOD CLEAN CATCH
[2021-09-04 13:07] LABS: PH 7 (5-8); SQUAMOUS EPITHELIAL None Seen /hpf (0-10); URINE APPEARANCE Clear (CLEAR/HAZY); URINE BACTERIA None Seen /hpf (NONE SEEN); URINE BILIRUBIN Negative (NEGATIVE); URINE BLOOD Negative (NEGATIVE); URINE COLOR Straw (YELLOW); URINE GLUCOSE Negative (NEGATIVE); URINE KETONE Negative (NEGATIVE); URINE LEUKOCYTE ESTERASE Trace (NEGATIVE); URINE NITRATE Negative (NEGATIVE); URINE PROTEIN(semi-quant) Negative (NEGATIVE); URINE UROBILINOGEN Negative (NEGATIVE)
[2021-09-04] MEDS ORDERED: LEVOXYL0.05 MG PO (14:35)
[2021-09-04] MEDS ORDERED: MIRALAX PA17 GM/Dose PO (14:35)
[2021-09-04] MEDS ORDERED: CLARITIN LIQUI-10 MG PO (14:36)
[2021-09-04] MEDS ORDERED: COZAAR 25MG25 MG/TAB PO (14:37)
[2021-09-04] MEDS ORDERED: K-TAB20 PO (14:37)
[2021-09-04] MEDS ORDERED: COUMADIN 2MG2 MG/TAB PO (14:38)
[2021-09-04] MEDS ORDERED: JANTOVEN1 MG PO (14:38)
[2021-09-04] MEDS ORDERED: SOAANZ20 MG PO (14:39)
[2021-09-04] MEDS ORDERED: SOAANZ40 MG PO (14:39)
[2021-09-04 16:00] VITALS: BP 129/80; PULSE 68
[2021-09-05] MEDS ORDERED: VOLTAREN GEL 1%1 TU TOP (05:26)
[2021-09-05] MEDS ORDERED: TYLENOL 500MG500 MG PO (05:27)
== END 2021-09-04 16:30 | disposition home or self-care (01) ==
LOC: COL.ER 10:54
PROVIDERS: Family Medicine
DX: R53.83 Other fatigue (principal); I48.91 Unspecified atrial fibrillation; G47.33 Obstructive sleep apnea (adult) (pediatric); R79.1 Abnormal coagulation profile; J96.10 Chronic respiratory failure, unspecified whether with hypoxia or hypercapnia; Z79.01 Long term (current) use of anticoagulants; Z99.89 Dependence on other enabling machines and devices; Z99.81 Dependence on supplemental oxygen
CPT/HCPCS: J7120

== ENCOUNTER 2021-09-05 02:12 | Inpatient (IN) | payer MEDICARE, BC ==
[~2021-09-05] VITALS: Ht 177.8 cm; Wt 91.7 kg
[~2021-09-05 02:12] MED LIST changes: +CLARITIN LIQUI-10 MG PO; +JANTOVEN1 MG PO; +LEVOXYL0.05 MG PO; +MIRALAX PA17 GM/Dose PO; +SOAANZ20 MG PO; +SOAANZ40 MG PO
[2021-09-05 02:50] LABS: BASO # 0.1 K/mm3 (0.0-0.2); BASO % 0.8 % (0.0-2.0); EOS # 0.3 K/mm3 (0.0-0.7); EOS % 3.3 % (0.0-4.0); GRAN # 6.1 K/mm3 (1.4-6.5); LYMPH # 2.2 K/mm3 (1.2-3.4); LYMPH % 22.5 % (20.0-51.0); MEAN CELL VOLUME 95 fl (80.0-100.0); MEAN CORPUSCULAR HGB CONC 33 g/dl (33.0-37.0); MEAN PLATELET VOLUME 10.7 fl (7.4-10.4); MONO % 9.9 % (1.7-9.3); PLATELET COUNT 178 K/mm3 (130-400); RED BLOOD COUNT 3.08 M/mm3 (4.20-5.60); REDCELL DISTRIBUTION WIDTH-CV 13.2 % (11.5-14.5)
[2021-09-05 02:51] LABS: HEMATOCRIT 29.2 % (42.0-52.0); HEMOGLOBIN 9.6 g/dl (13.5-18.0); MEAN CORPUSCULAR HEMOGLOBIN 31 pg (27-31)
[2021-09-05 03:12] LABS: BILIRUBIN,TOTAL 0.8 mg/dL (0.2-1.2); CALCIUM 8.8 mg/dL (8.4-10.2); CREATININE, serum 2.48 mg/dL (0.72-1.25); POTASSIUM 3.9 mmol/L (3.5-4.5); TOTAL PROTEIN 6.7 gm/dL (6.2-8.1)
[2021-09-05 03:18] LABS: TROPONIN-I 0.127 ng/mL (0.00-0.033)
[2021-09-05 03:39] LABS: INR 3.7 (0.8-3.0); PROTHROMBIN TIME 43.1 SECONDS (9.7-12.8)
[2021-09-05 04:46] LABS: COLLECTION METHOD CATHETER
[2021-09-05 04:56] LABS: PH 7 (5-8); SQUAMOUS EPITHELIAL None Seen /hpf (0-10); URINE APPEARANCE Clear (CLEAR/HAZY); URINE BACTERIA Rare /hpf (NONE SEEN); URINE BILIRUBIN Negative (NEGATIVE); URINE BLOOD Negative (NEGATIVE); URINE COLOR Yellow (YELLOW); URINE GLUCOSE Negative (NEGATIVE); URINE KETONE Negative (NEGATIVE); URINE LEUKOCYTE ESTERASE Trace (NEGATIVE); URINE NITRATE Negative (NEGATIVE); URINE PROTEIN(semi-quant) Negative (NEGATIVE); URINE RBC 0-2 /hpf (0-2); URINE UROBILINOGEN Negative (NEGATIVE)
[2021-09-05] MEDS ORDERED: VOLTAREN GEL 1%1 TU TOP (05:26)
[2021-09-05] MEDS ORDERED: TYLENOL 500MG500 MG PO (05:27)
[2021-09-05 07:36] VITALS: BP 124/72; PULSE 74; TEMP 97.6
[2021-09-05 10:10] VITALS: BP 100/53; BP 90/57; PULSE 76
[2021-09-05 10:12] VITALS: BP 113/53; PULSE 85
[2021-09-05 11:26] VITALS: BP 104/53; PULSE 72; TEMP 98.2
[2021-09-05 15:47] VITALS: BP 100/50; PULSE 71; TEMP 98
[2021-09-05 21:17] VITALS: BP 117/63; PULSE 83; TEMP 98.1
[2021-09-06] VITALS (9 sets, daily range): BP systolic 89–136; BP diastolic 44–91; PULSE 65–112; TEMP 96.3–98.7
[2021-09-06 07:04] LABS: BASO # 0.1 K/mm3 (0.0-0.2); BASO % 0.8 % (0.0-2.0); EOS # 0.4 K/mm3 (0.0-0.7); EOS % 5.8 % (0.0-4.0); GRAN # 3.8 K/mm3 (1.4-6.5); GRAN % 57.9 % (42.2-75.2); LYMPH # 1.5 K/mm3 (1.2-3.4); LYMPH % 22.3 % (20.0-51.0); MEAN CELL VOLUME 97 fl (80.0-100.0); MEAN CORPUSCULAR HGB CONC 33 g/dl (33.0-37.0); MEAN PLATELET VOLUME 10.9 fl (7.4-10.4); MONO # 0.8 K/mm3 (0.1-0.6); MONO % 12.7 % (1.7-9.3); PLATELET COUNT 162 K/mm3 (130-400); RED BLOOD COUNT 2.54 M/mm3 (4.20-5.60); REDCELL DISTRIBUTION WIDTH-CV 13.6 % (11.5-14.5)
[2021-09-06 07:06] LABS: INR 3.6 (0.8-3.0); PROTHROMBIN TIME 41.7 SECONDS (9.7-12.8)
[2021-09-06 07:11] LABS: HEMATOCRIT 24.6 % (42.0-52.0); MEAN CORPUSCULAR HEMOGLOBIN 31 pg (27-31)
[2021-09-06 07:30] LABS: CALCIUM 8.3 mg/dL (8.4-10.2); CREATININE, serum 2.42 mg/dL (0.72-1.25); POTASSIUM 3.6 mmol/L (3.5-4.5)
[2021-09-07] VITALS (7 sets, daily range): BP systolic 88–118; BP diastolic 37–75; PULSE 61–85; TEMP 97.7–98.2
[2021-09-07 08:03] LABS: BASO # 0.1 K/mm3 (0.0-0.2); BASO % 0.6 % (0.0-2.0); EOS # 0.5 K/mm3 (0.0-0.7); EOS % 5.6 % (0.0-4.0); GRAN # 5.3 K/mm3 (1.4-6.5); GRAN % 62.5 % (42.2-75.2); LYMPH # 1.7 K/mm3 (1.2-3.4); MEAN CELL VOLUME 96 fl (80.0-100.0); MEAN CORPUSCULAR HGB CONC 33 g/dl (33.0-37.0); MONO # 0.9 K/mm3 (0.1-0.6); MONO % 11.1 % (1.7-9.3); PLATELET COUNT 160 K/mm3 (130-400); RED BLOOD COUNT 2.48 M/mm3 (4.20-5.60); REDCELL DISTRIBUTION WIDTH-CV 13.6 % (11.5-14.5)
[2021-09-07 08:04] LABS: HEMATOCRIT 23.9 % (42.0-52.0); HEMOGLOBIN 7.8 g/dl (13.5-18.0); MEAN CORPUSCULAR HEMOGLOBIN 31 pg (27-31)
[2021-09-07 08:16] LABS: INR 3.2 (0.8-3.0); PROTHROMBIN TIME 36.6 SECONDS (9.7-12.8)
[2021-09-07 08:28] LABS: CALCIUM 8.2 mg/dL (8.4-10.2); CREATININE, serum 2.44 mg/dL (0.72-1.25)
[2021-09-07 08:40] LABS: TROPONIN-I 0.171 ng/mL (0.00-0.033)
[2021-09-07 18:25] LABS: HEMATOCRIT 26.2 % (42.0-52.0); HEMOGLOBIN 8.5 g/dl (13.5-18.0)
[2021-09-08 04:33] VITALS: BP 100/59; PULSE 67; TEMP 98.2
[2021-09-08 06:45] LABS: BASO # 0.1 K/mm3 (0.0-0.2); BASO % 0.7 % (0.0-2.0); EOS # 0.4 K/mm3 (0.0-0.7); EOS % 4.8 % (0.0-4.0); GRAN # 5.3 K/mm3 (1.4-6.5); GRAN % 61.7 % (42.2-75.2); LYMPH # 1.9 K/mm3 (1.2-3.4); LYMPH % 22.6 % (20.0-51.0); MEAN CELL VOLUME 98 fl (80.0-100.0); MEAN CORPUSCULAR HGB CONC 32 g/dl (33.0-37.0); MEAN PLATELET VOLUME 10.7 fl (7.4-10.4); MONO # 0.8 K/mm3 (0.1-0.6); MONO % 9.6 % (1.7-9.3); PLATELET COUNT 153 K/mm3 (130-400); RED BLOOD COUNT 2.55 M/mm3 (4.20-5.60); REDCELL DISTRIBUTION WIDTH-CV 13.4 % (11.5-14.5)
[2021-09-08 06:46] LABS: MEAN CORPUSCULAR HEMOGLOBIN 31 pg (27-31)
[2021-09-08 07:19] LABS: CALCIUM 8.6 mg/dL (8.4-10.2); CREATININE, serum 2.27 mg/dL (0.72-1.25)
[2021-09-08 07:30] VITALS: BP 102/67; PULSE 62; TEMP 97.6
[2021-09-08 07:48] LABS: INR 2.6 (0.8-3.0); PROTHROMBIN TIME 30.4 SECONDS (9.7-12.8)
[2021-09-08 07:57] LABS: POTASSIUM 4.2 mmol/L (3.5-4.5)
[2021-09-08 11:15] VITALS: BP 131/68; PULSE 72; TEMP 97.6
[2021-09-08 15:57] VITALS: BP 115/66; PULSE 84; TEMP 97.9
[2021-09-08 20:37] VITALS: BP 126/61; PULSE 66; TEMP 98.1
[2021-09-09 00:45] VITALS: BP 100/54; PULSE 54; TEMP 97.7
[2021-09-09 04:26] VITALS: BP 127/53; PULSE 69; TEMP 97.7
[2021-09-09 06:06] LABS: BASO # 0.1 K/mm3 (0.0-0.2); BASO % 0.8 % (0.0-2.0); EOS # 0.4 K/mm3 (0.0-0.7); EOS % 4.2 % (0.0-4.0); GRAN % 67.4 % (42.2-75.2); LYMPH # 1.5 K/mm3 (1.2-3.4); LYMPH % 16.4 % (20.0-51.0); MEAN CELL VOLUME 96 fl (80.0-100.0); MEAN CORPUSCULAR HGB CONC 33 g/dl (33.0-37.0); MEAN PLATELET VOLUME 10.9 fl (7.4-10.4); MONO % 10.8 % (1.7-9.3); PLATELET COUNT 182 K/mm3 (130-400); RED BLOOD COUNT 2.72 M/mm3 (4.20-5.60); REDCELL DISTRIBUTION WIDTH-CV 13.7 % (11.5-14.5)
[2021-09-09 06:19] LABS: HEMATOCRIT 26.1 % (42.0-52.0); HEMOGLOBIN 8.5 g/dl (13.5-18.0); MEAN CORPUSCULAR HEMOGLOBIN 31 pg (27-31)
[2021-09-09 06:26] LABS: CALCIUM 8.5 mg/dL (8.4-10.2); CREATININE, serum 2.26 mg/dL (0.72-1.25); POTASSIUM 4.5 mmol/L (3.5-4.5)
[2021-09-09 07:26] VITALS: BP 112/62; PULSE 62; TEMP 98.1
[2021-09-09] MEDS ORDERED: ELIQUIS 2.5 PO ×2 (09:58)
[2021-09-09 11:10] VITALS: BP 124/69; PULSE 64; TEMP 97.7
[2021-09-09] MEDS ORDERED: LASIX 20MG TABL20 MG PO (12:05)
== END 2021-09-09 13:35 | DRG 74 ==
LOC: COL.ER 02:12 → MEDICAL 06:04
PROVIDERS: Emergency Medicine Emergency Medical Services; Nurse Practitioner Family; Physician Assistant; Student in an Organized Health Care Education/Training Program; ADMIT Family Medicine
DX: G90.9 Disorder of the autonomic nervous system, unspecified (principal); I13.0 Hypertensive heart and chronic kidney disease with heart failure and stage 1 through stage 4 chronic kidney disease, or unspecified chronic kidney disease; J96.11 Chronic respiratory failure with hypoxia; J90 Pleural effusion, not elsewhere classified; I50.22 Chronic systolic (congestive) heart failure; I95.9 Hypotension, unspecified; J44.9 Chronic obstructive pulmonary disease, unspecified; G47.33 Obstructive sleep apnea (adult) (pediatric); E03.9 Hypothyroidism, unspecified; I73.9 Peripheral vascular disease, unspecified; Z20.822 Contact with and (suspected) exposure to COVID-19; I48.0 Paroxysmal atrial fibrillation; N18.30 Chronic kidney disease, stage 3 unspecified; K21.9 Gastro-esophageal reflux disease without esophagitis; I08.3 Combined rheumatic disorders of mitral, aortic and tricuspid valves; D64.9 Anemia, unspecified; M54.50 Low back pain, unspecified; M19.90 Unspecified osteoarthritis, unspecified site; M48.02 Spinal stenosis, cervical region; E78.5 Hyperlipidemia, unspecified; S00.03XA Contusion of scalp, initial encounter; R53.1 Weakness; I27.20 Pulmonary hypertension, unspecified; R32 Unspecified urinary incontinence; Z99.81 Dependence on supplemental oxygen; Z95.0 Presence of cardiac pacemaker; Z79.82 Long term (current) use of aspirin; Z79.890 Hormone replacement therapy; Z87.440 Personal history of urinary (tract) infections; Z88.1 Allergy status to other antibiotic agents; Z88.8 Allergy status to other drugs, medicaments and biological substances; Z79.01 Long term (current) use of anticoagulants; Z91.81 History of falling; Z23 Encounter for immunization
CPT/HCPCS: OP; 99223-AI; 99232-AI; 99233-AI; G0378; J2185; J7040

== ENCOUNTER → 2021-09-16 | Outpatient (CLI) | payer MEDICARE, BC ==
[~2021-09-16] MED LIST changes: +ELIQUIS 2.5 PO; +LASIX 20MG TABL20 MG PO; +TYLENOL 500MG500 MG PO; +VOLTAREN GEL 1%1 TU TOP
== END ==
LOC: COL.VAS 09:00
DX: I65.21 Occlusion and stenosis of right carotid artery (principal); R47.81 Slurred speech; Z95.4 Presence of other heart-valve replacement; Z79.01 Long term (current) use of anticoagulants

== ENCOUNTER → 2021-09-18 | Outpatient (CLI) | payer MEDICARE, BC ==
[2021-09-18 20:05] LABS: CALCIUM 8.4 mg/dL (8.4-10.2); CREATININE, serum 2.05 mg/dL (0.72-1.25); POTASSIUM 3.7 mmol/L (3.5-4.5)
== END ==
LOC: ZCOL.LAB 18:30
PROVIDERS: Internal Medicine
DX: I11.0 Hypertensive heart disease with heart failure (principal); I50.22 Chronic systolic (congestive) heart failure

== ENCOUNTER 2021-11-12 01:02 | Emergency (ER) | payer MEDICARE, BC ==
[~2021-11-12] VITALS: Ht 170.2 cm; Wt 93.2 kg
[2021-11-12 01:36] LABS: COLLECTION METHOD CATHETER
[2021-11-12 02:02] LABS: MUCOUS Present (NOT PRESENT); SQUAMOUS EPITHELIAL None Seen /hpf (0-10); URINE BACTERIA Occasional /hpf (NONE SEEN); URINE RBC >50 /hpf (0-2); URINE TRIPLE PHOSPHATE CRYSTAL Present (NOT PRESENT)
[2021-11-12 02:03] LABS: PH 8.5 (5.0-8.5); URINE APPEARANCE Cloudy (CLEAR/HAZY); URINE BLOOD 2+ (NEGATIVE); URINE COLOR Yellow (YELLOW); URINE GLUCOSE Negative (NEGATIVE); URINE KETONE Negative (NEGATIVE); URINE NITRATE Positive (NEGATIVE); URINE PROTEIN(semi-quant) 2+ (NEGATIVE); URINE UROBILINOGEN 0.2 E.U/dL (0.2-1.0)
[2021-11-12] MEDS ORDERED: CEFTIN500 MG PO (02:22)
[2021-11-12 02:50] VITALS: BP 139/90; PULSE 65; TEMP 98.4
[2021-11-16] MEDS ORDERED: PEN-VEE K500 MG PO (15:49)
[2021-11-16] MEDS ORDERED: BACTRIM DS 8001 TAB PO (15:49)
== END 2021-11-12 02:50 | disposition home or self-care (01) ==
LOC: COL.ER 01:02
PROVIDERS: Emergency Medicine
DX: T83.098A Other mechanical complication of other urinary catheter, initial encounter (principal); B37.49 Other urogenital candidiasis; I48.91 Unspecified atrial fibrillation; J96.11 Chronic respiratory failure with hypoxia; G47.33 Obstructive sleep apnea (adult) (pediatric); Z88.1 Allergy status to other antibiotic agents; Z99.81 Dependence on supplemental oxygen; Z99.89 Dependence on other enabling machines and devices; Z79.01 Long term (current) use of anticoagulants

== ENCOUNTER 2021-11-28 12:19 | Emergency (ER) | payer MEDICARE, BC ==
[~2021-11-28] VITALS: Ht 170.2 cm; Wt 92.7 kg
[~2021-11-28 12:19] MED LIST changes: +BACTRIM DS 8001 TAB PO; +CEFTIN500 MG PO; +PEN-VEE K500 MG PO
[2021-11-28 13:04] VITALS: TEMP 98.2
[2021-11-28 15:31] VITALS: BP 126/68; PULSE 69
== END 2021-11-28 15:31 | disposition home or self-care (01) ==
LOC: COL.ER 12:19
DX: S61.214A Laceration without foreign body of right ring finger without damage to nail, initial encounter (principal); W26.9XXA Contact with unspecified sharp object(s), initial encounter; W01.0XXA Fall on same level from slipping, tripping and stumbling without subsequent striking against object, initial encounter; Y92.009 Unspecified place in unspecified non-institutional (private) residence as the place of occurrence of the external cause

== ENCOUNTER 2021-12-31 17:24 | Inpatient (IN) | payer MEDICARE, BC ==
[~2021-12-31] VITALS: Ht 170.2 cm; Wt 87.5 kg
[2021-12-31 17:55] LABS: HEMOGLOBIN 11.4 g/dl (13.5-18.0); MEAN CELL VOLUME 87 fl (80.0-100.0); MEAN CORPUSCULAR HEMOGLOBIN 28 pg (27-31); MEAN CORPUSCULAR HGB CONC 32 g/dl (33.0-37.0); MEAN PLATELET VOLUME 11.2 fl (7.4-10.4); PLATELET COUNT 160 K/mm3 (130-400); RED BLOOD COUNT 4.11 M/mm3 (4.20-5.60); REDCELL DISTRIBUTION WIDTH-CV 15.7 % (11.5-14.5)
[2021-12-31 17:58] LABS: HEMATOCRIT 35.9 % (42.0-52.0)
[2021-12-31 18:12] LABS: ALBUMIN 3.5 gm/dL (3.4-4.8); BILIRUBIN,TOTAL 1.2 mg/dL (0.2-1.2); CALCIUM 9.1 mg/dL (8.4-10.2); CREATININE, serum 2.84 mg/dL (0.72-1.25); POTASSIUM 4.9 mmol/L (3.5-4.5); TOTAL PROTEIN 7.5 gm/dL (6.2-8.1)
[2021-12-31 18:37] LABS: BAND 15 % (0-10); HYPOCHROMIA 2+; LYMPHOCYTE 1 % (20.0-51.0); NEUTROPHILS 82 % (42.0-75.2)
[2021-12-31 18:38] LABS: ANISOCYTOSIS 1+; OVALOCYTES 1+
[2021-12-31 18:39] LABS: PLATELET ESTIMATE NORMAL (NORMAL); TEAR DROP CELLS 1+
[2021-12-31 23:36] LABS: CREATININE, serum 2.91 mg/dL (0.72-1.25); POTASSIUM 4.5 mmol/L (3.5-4.5)
[2022-01-01 01:34] LABS: COLLECTION METHOD CATHETER
[2022-01-01 01:44] LABS: PH 5.5 (5.0-8.5); URINE APPEARANCE Turbid (CLEAR/HAZY); URINE COLOR OTHER (YELLOW); URINE PROTEIN(semi-quant) 3+ (NEGATIVE)
[2022-01-01 01:45] LABS: URINE BLOOD 3+ (NEGATIVE); URINE GLUCOSE Negative (NEGATIVE); URINE KETONE TRACE (NEGATIVE); URINE NITRATE Positive (NEGATIVE)
[2022-01-01 01:49] LABS: MUCOUS Present (NOT PRESENT); SQUAMOUS EPITHELIAL None Seen /hpf (0-10); URINE BACTERIA None Seen /hpf (NONE SEEN); URINE RBC >50 /hpf (0-2)
[2022-01-01] MEDS ORDERED: K-DUR 10 MEQ T10 MEQ PO (04:32)
[2022-01-01] MEDS ORDERED: LASIX 40MG TABL40 MG PO (04:32)
[2022-01-01] MEDS ORDERED: ELIQUIS 2.5 PO (04:32)
[2022-01-01] MEDS ORDERED: SYNTHROID0.05 MG/TA PO (04:33)
[2022-01-01] MEDS ORDERED: PROVENTIL0.09 MG/A1 IH (04:33)
[2022-01-01] MEDS ORDERED: ZYRTEC 10MG10 MG PO (04:33)
--- NOTE | 2022-01-01 07:49 | NUR ---
Gauri with [facility] accepts patient to a private pay bed from the emergency room, however patient is now being admitted to the hospital this date. dope and fabric worker sent clinical information to [facility].
[2022-01-01 08:26] LABS: BASO % 0.4 % (0.0-2.0); EOS # 0.1 K/mm3 (0.0-0.7); EOS % 0.6 % (0.0-4.0); GRAN % 88.1 % (42.2-75.2); HEMOGLOBIN 10.4 g/dl (13.5-18.0); LYMPH # 0.7 K/mm3 (1.2-3.4); LYMPH % 5.8 % (20.0-51.0); MEAN CORPUSCULAR HEMOGLOBIN 28 pg (27-31); MEAN CORPUSCULAR HGB CONC 30 g/dl (33.0-37.0); MEAN PLATELET VOLUME 11.2 fl (7.4-10.4); MONO # 0.5 K/mm3 (0.1-0.6); MONO % 4.7 % (1.7-9.3); PLATELET COUNT 164 K/mm3 (130-400); RED BLOOD COUNT 3.72 M/mm3 (4.20-5.60); REDCELL DISTRIBUTION WIDTH-CV 15.8 % (11.5-14.5)
[2022-01-01 08:28] LABS: HEMATOCRIT 34.3 % (42.0-52.0); MEAN CELL VOLUME 92 fl (80.0-100.0)
[2022-01-01 08:33] LABS: INR 2.1 (0.8-3.0); PROTHROMBIN TIME 24.8 SECONDS (9.7-12.8)
[2022-01-01 08:36] LABS: PARTIAL THROMBOPLASTIN TIME 38.5 SECONDS (26.0-37.0)
[2022-01-01 08:43] LABS: CALCIUM 8.8 mg/dL (8.4-10.2); CREATININE, serum 3.03 mg/dL (0.72-1.25); MAGNESIUM 2.2 mg/dL (1.6-2.6); PHOSPHOROUS 4.2 mg/dL (2.3-4.7); POTASSIUM 4.1 mmol/L (3.5-4.5)
[2022-01-01 09:04] LABS: THYROID STIMULATING HORMONE 3.571 uIU/mL (0.350-4.940)
[2022-01-01 11:40] VITALS: BP 112/57; PULSE 62; TEMP 97.6
--- NOTE | 2022-01-01 14:04 | NUR ---
Per patients RN, family states that the patient can discharge to [facility] once medically ready. Phone call made to Gauri at [facility] who confirms that they will be able to accept this patient should he agree to SNF.
--- NOTE | 2022-01-01 15:22 | NUR ---
Received consult. Will visit pt and educate 01/02/22
[2022-01-01 15:40] VITALS: BP 112/58; PULSE 58; TEMP 98
[2022-01-01 21:21] VITALS: BP 120/61; PULSE 59; TEMP 98.1
[2022-01-01 23:38] VITALS: BP 112/64; PULSE 75; TEMP 98
[2022-01-02 04:24] VITALS: BP 112/59; PULSE 64; TEMP 97.9
[2022-01-02 06:53] LABS: BASO % 0.5 % (0.0-2.0); EOS # 0.3 K/mm3 (0.0-0.7); EOS % 2.9 % (0.0-4.0); GRAN # 6.4 K/mm3 (1.4-6.5); GRAN % 74.6 % (42.2-75.2); HEMOGLOBIN 10.1 g/dl (13.5-18.0); LYMPH # 1.2 K/mm3 (1.2-3.4); LYMPH % 13.6 % (20.0-51.0); MEAN CELL VOLUME 91 fl (80.0-100.0); MEAN CORPUSCULAR HEMOGLOBIN 28 pg (27-31); MEAN CORPUSCULAR HGB CONC 31 g/dl (33.0-37.0); MEAN PLATELET VOLUME 11.1 fl (7.4-10.4); MONO # 0.7 K/mm3 (0.1-0.6); MONO % 8.2 % (1.7-9.3); PLATELET COUNT 142 K/mm3 (130-400); RED BLOOD COUNT 3.62 M/mm3 (4.20-5.60); REDCELL DISTRIBUTION WIDTH-CV 15.8 % (11.5-14.5)
[2022-01-02 07:20] LABS: CALCIUM 8.8 mg/dL (8.4-10.2); CREATININE, serum 2.87 mg/dL (0.72-1.25); MAGNESIUM 2.2 mg/dL (1.6-2.6); POTASSIUM 4.1 mmol/L (3.5-4.5)
--- NOTE | 2022-01-02 07:59 | NUR ---
PT UP TO RECLINER FOR BREAKFAST. BREAKFAST ORDERED. PT DENIES NEEDS AT THIS TIME. DICKINSON CATHETER TO DD WITH YELLOW URINE WITH LG AMT OF SEDIMENT. PT IS A/O X3 TODAY. INT TO RW.
[2022-01-02 08:48] VITALS: BP 103/58; PULSE 68; TEMP 98.2
--- NOTE | 2022-01-02 09:38 | NUR ---
Initial visit; Patient having breakfast, appears depressed about his health issues and states he is "ok," but doesn't want spiritual care. Tobacco Shaker offered God's blessings.
[2022-01-02 11:14] VITALS: BP 115/67; PULSE 68; TEMP 97.7
--- NOTE | 2022-01-02 13:59 | NUR ---
merchandise worker faxed clinical updates to [facility]. Discharge plan: [facility].
[2022-01-02 15:59] VITALS: BP 125/61; PULSE 59; TEMP 98.6
[2022-01-02 20:05] VITALS: BP 120/65; PULSE 61; TEMP 98.5
[2022-01-02 23:54] VITALS: BP 122/69; PULSE 62; TEMP 98.3
[2022-01-02] MEDS ORDERED: MACROBID 1100 MG/CAP PO (23:59)
[2022-01-03 04:35] VITALS: BP 122/72; PULSE 59; TEMP 97.6
--- NOTE | 2022-01-03 07:14 | NUR ---
Received shift report from the security shift manager nurse, HARISH Platt
[2022-01-03 07:21] LABS: BASO % 0.3 % (0.0-2.0); EOS # 0.2 K/mm3 (0.0-0.7); EOS % 3.1 % (0.0-4.0); GRAN # 5.7 K/mm3 (1.4-6.5); GRAN % 73.6 % (42.2-75.2); HEMOGLOBIN 10.5 g/dl (13.5-18.0); LYMPH # 1.1 K/mm3 (1.2-3.4); LYMPH % 13.5 % (20.0-51.0); MEAN CELL VOLUME 92 fl (80.0-100.0); MEAN CORPUSCULAR HEMOGLOBIN 28 pg (27-31); MEAN CORPUSCULAR HGB CONC 31 g/dl (33.0-37.0); MEAN PLATELET VOLUME 11.4 fl (7.4-10.4); MONO # 0.7 K/mm3 (0.1-0.6); MONO % 9.1 % (1.7-9.3); PLATELET COUNT 143 K/mm3 (130-400); RED BLOOD COUNT 3.75 M/mm3 (4.20-5.60); REDCELL DISTRIBUTION WIDTH-CV 15.6 % (11.5-14.5)
[2022-01-03 07:28] LABS: HEMATOCRIT 34.4 % (42.0-52.0)
[2022-01-03 07:54] LABS: CALCIUM 8.7 mg/dL (8.4-10.2); CREATININE, serum 2.46 mg/dL (0.72-1.25); MAGNESIUM 2.2 mg/dL (1.6-2.6); POTASSIUM 3.6 mmol/L (3.5-4.5)
[2022-01-03 08:00] VITALS: BP 130/70; PULSE 77; TEMP 97.9
--- NOTE | 2022-01-03 09:23 | NUR ---
Patient sitting up in chair at the bedside eating breakfast. Alert and oriented. Patient reports of episode of SOB early this am but denies during morning assessment. Patient in not any distress. VSS.
--- NOTE | 2022-01-03 09:44 | NUR ---
Dr. Sim informed GUNNER that pt can DC 01/[address] [facility]. GUNNER called Zack at [facility] [phone] and informed her of DC date.
[2022-01-03 12:00] VITALS: BP 134/67; PULSE 60; TEMP 97.7
--- NOTE | 2022-01-03 12:44 | NUR ---
Trekking Guide rounds: Trekking Guide visit attempted. Patient was walking the hallway with the physical therapist.
[2022-01-03 16:00] VITALS: BP 136/66; PULSE 63; TEMP 98.2
--- NOTE | 2022-01-03 18:32 | NUR ---
Patient laying in bed watching TV. Patient denies needs. Dinner ordered.
[2022-01-03 20:25] VITALS: BP 136/60; PULSE 64; TEMP 98
[2022-01-03 23:24] VITALS: BP 116/61; PULSE 61; TEMP 98.2
--- NOTE | 2022-01-04 01:59 | NUR ---
NURSING SHIFT ASSESSMENT COMPLETED. THE PATIENT REQUESTED FRESH WATER AND IT WAS PROVIDED. THE PATIENT DENIED PAIN DURING HIS ASSESSMENT. NO S/S OF DISTRESS NOTED. CALL LIGHT AND PERSONAL BELONGINGS WITHIN REACH. BED IN LOW POSITION AND BED ALARM ON. WILL MONITOR.
[2022-01-04 03:54] VITALS: BP 121/62; PULSE 61; TEMP 98.4
--- NOTE | 2022-01-04 07:11 | NUR ---
Received shift report from the associate medical director nurse, RN
--- NOTE | 2022-01-04 08:15 | NUR ---
Patient sleeping and easily arouse. Alert and oriented. Patient denies of SOB upon assessment. Zosyn infusing at 25ml/hr. Patient reports of feeling shortness of breath at night but not this am. Breakfast ordered for patient and will continue to monitor. Call [facility] within reach.
[2022-01-04 08:24] LABS: BASO % 0.6 % (0.0-2.0); EOS # 0.2 K/mm3 (0.0-0.7); EOS % 3.2 % (0.0-4.0); GRAN # 4.8 K/mm3 (1.4-6.5); GRAN % 68.7 % (42.2-75.2); HEMOGLOBIN 10.1 g/dl (13.5-18.0); LYMPH # 1.2 K/mm3 (1.2-3.4); LYMPH % 17.2 % (20.0-51.0); MEAN CORPUSCULAR HEMOGLOBIN 28 pg (27-31); MEAN CORPUSCULAR HGB CONC 32 g/dl (33.0-37.0); MEAN PLATELET VOLUME 11.2 fl (7.4-10.4); MONO # 0.7 K/mm3 (0.1-0.6); PLATELET COUNT 149 K/mm3 (130-400); RED BLOOD COUNT 3.63 M/mm3 (4.20-5.60); REDCELL DISTRIBUTION WIDTH-CV 15.5 % (11.5-14.5)
[2022-01-04 08:25] LABS: HEMATOCRIT 31.6 % (42.0-52.0); MEAN CELL VOLUME 87 fl (80.0-100.0)
[2022-01-04 08:36] LABS: CALCIUM 8.4 mg/dL (8.4-10.2); CREATININE, serum 2.07 mg/dL (0.72-1.25); MAGNESIUM 2.1 mg/dL (1.6-2.6); POTASSIUM 3.2 mmol/L (3.5-4.5)
[2022-01-04 08:38] VITALS: BP 114/55; PULSE 62; TEMP 97.5
--- NOTE | 2022-01-04 09:15 | NUR ---
Dr. Sim was notified of glucose level of 70.
[2022-01-04 12:00] VITALS: BP 134/84; PULSE 65; TEMP 97.5
--- NOTE | 2022-01-04 12:28 | NUR ---
SW informed by previous SW that patient would be dcing on this day back to [facility]. SW informed that patient would not be discharging on this day. Was not informed of what potential date DC would occur. SW will continue to follow.
--- NOTE | 2022-01-04 13:03 | NUR ---
Coating Machine Feeder rounds: Patient declined telephony engineer visit, but did request telephony engineer help him get someone to assist him with a shower. Coating Machine Feeder spoke with nurses at nurses' station about the Patient's desire for a shower.
[2022-01-04 15:47] VITALS: BP 139/66; PULSE 59; TEMP 97.7
[2022-01-04 20:02] VITALS: BP 139/72; PULSE 60; TEMP 97.4
--- NOTE | 2022-01-04 22:50 | NUR ---
PATIENT IS RESTING IN BED.PATIENT DENIES PAIN.PATIENT TAKES PILLS WHOLE WITH NO TROUBLE.SAFETY MEASURES IN PLACE.NO OTHER NEEDS A T THIS TIME.
[2022-01-04 23:41] VITALS: BP 146/68; PULSE 62; TEMP 97.5
[2022-01-05 03:33] VITALS: BP 150/68; PULSE 63; TEMP 97.5
--- NOTE | 2022-01-05 06:04 | NUR ---
PATIENT REPORTS SOB.OXYGEN SATS AT 93%.PATIENT IS ON SUPPLEMENTAL OXYGEN VIA NC AT 1L.SAFETY MEASURES IN PLACE.NO OTHER NEES AT THIS TIME.
[2022-01-05 07:12] LABS: CALCIUM 8.6 mg/dL (8.4-10.2); CREATININE, serum 2.01 mg/dL (0.72-1.25); POTASSIUM 3.2 mmol/L (3.5-4.5)
[2022-01-05 07:34] LABS: BASO % 0.5 % (0.0-2.0); EOS # 0.3 K/mm3 (0.0-0.7); EOS % 3.3 % (0.0-4.0); GRAN # 5.7 K/mm3 (1.4-6.5); GRAN % 70.1 % (42.2-75.2); LYMPH # 1.2 K/mm3 (1.2-3.4); LYMPH % 14.6 % (20.0-51.0); MEAN CELL VOLUME 87 fl (80.0-100.0); MEAN CORPUSCULAR HEMOGLOBIN 28 pg (27-31); MEAN CORPUSCULAR HGB CONC 32 g/dl (33.0-37.0); MEAN PLATELET VOLUME 10.9 fl (7.4-10.4); MONO # 0.9 K/mm3 (0.1-0.6); MONO % 11.3 % (1.7-9.3); PLATELET COUNT 150 K/mm3 (130-400); RED BLOOD COUNT 3.94 M/mm3 (4.20-5.60); REDCELL DISTRIBUTION WIDTH-CV 15.7 % (11.5-14.5)
[2022-01-05 07:36] LABS: HEMATOCRIT 34.2 % (42.0-52.0)
--- NOTE | 2022-01-05 08:03 | NUR ---
Patient up to the bathroom, on assist with walker & gaitbelt. He had Bm. Up to sink to wash his hands. Breakfast ordered, he denies nausea. Dyspnea noted with exertion. Maris to [place]MAN. Iv antibioitcs. Will monitor.
[2022-01-05 08:13] VITALS: BP 154/71; PULSE 68; TEMP 97.5
[2022-01-05 12:15] VITALS: BP 145/78; PULSE 62; TEMP 97.3
[2022-01-05 16:00] VITALS: BP 149/73; PULSE 61; TEMP 97.5
--- NOTE | 2022-01-05 16:52 | NUR ---
Patient resting in bed. Offered a CHF notebook, patient not interested. He is aware of fluid restriction. Did provided juice this evening. Awaiitleroy ID recommendations for antibioitcs for discharge. Patient has had good urine output after lasix. slava escobar DD. Will monitor.
--- NOTE | 2022-01-05 18:33 | NUR ---
Patient tolerated dinner. Resting in bed, gloria needs at this time
[2022-01-05 19:57] VITALS: BP 136/67; PULSE 90; TEMP 97.4
[2022-01-06 00:05] VITALS: BP 148/79; PULSE 61; TEMP 98.1
[2022-01-06 03:44] VITALS: BP 139/77; PULSE 62; TEMP 97.6
[2022-01-06 06:24] LABS: BASO % 0.5 % (0.0-2.0); EOS # 0.3 K/mm3 (0.0-0.7); EOS % 2.9 % (0.0-4.0); GRAN # 5.8 K/mm3 (1.4-6.5); GRAN % 65.8 % (42.2-75.2); HEMOGLOBIN 11.5 g/dl (13.5-18.0); LYMPH # 1.7 K/mm3 (1.2-3.4); LYMPH % 19.7 % (20.0-51.0); MEAN CELL VOLUME 87 fl (80.0-100.0); MEAN CORPUSCULAR HEMOGLOBIN 28 pg (27-31); MEAN CORPUSCULAR HGB CONC 32 g/dl (33.0-37.0); MEAN PLATELET VOLUME 11.5 fl (7.4-10.4); MONO % 10.9 % (1.7-9.3); PLATELET COUNT 172 K/mm3 (130-400); RED BLOOD COUNT 4.15 M/mm3 (4.20-5.60); REDCELL DISTRIBUTION WIDTH-CV 15.8 % (11.5-14.5)
[2022-01-06 06:31] LABS: HEMATOCRIT 36.1 % (42.0-52.0)
[2022-01-06 07:08] LABS: CALCIUM 8.7 mg/dL (8.4-10.2); CREATININE, serum 1.91 mg/dL (0.72-1.25); POTASSIUM 3.6 mmol/L (3.5-4.5)
[2022-01-06 07:50] VITALS: BP 164/81; PULSE 63; TEMP 97.6
--- NOTE | 2022-01-06 08:00 | NUR ---
PATIENT IS ORIENTED BUT DROWSY THIS AM. VSS ON TELE. DENIES C/O PAIN OR NAUSEA. PATIENT DOES APPEAR TO HAVE SOME LABBORED BREAHTING AT REST. WHEN ASKED, PATIENT DOES STILL C/O SOA. 02 @ 0.5-1L WITH SATS AT 96%. PATIENT SATS ABOVE 90% ON RA HOWEVER, PATIENT REQUEST 02 FOR COMFORT STATING HE FEELS LIKE HE HAS A HARDER TIME "CATCHING HIS BREATH" WITHOUT OXYGEN THERAPY. A&P LUNG HEBERT ARE DEMINISHED. TOLERATING AHA DIET, BREAKFAST ORDERED. AM MEDS GIVEN. RIGHT WRIST IV TO INT. DICKINSON TO DD. 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 HEAD TO TOE ASSESSMENT COMPLETE. PATIENT RESTING UP IN BED WITH NO OTHER NEEDS AT THIS TIME. CALL LIGHT IN REACH.
--- NOTE | 2022-01-06 10:54 | NUR ---
GUNNER faxed updates to Jose at [facility].
[2022-01-06 12:36] VITALS: BP 159/77; PULSE 59; TEMP 97.8
--- NOTE | 2022-01-06 14:12 | NUR ---
PATIENT AMBULATING OUT IN HALLS WITH PT AND WALKER. SEE PT NOTES.
--- NOTE | 2022-01-06 14:41 | NUR ---
The patient may be able to discharge tomorrow, 01/06, pending ID's recs. GUNNER notified Jose at [facility]. GUNNER met with the patient and presented and read the IM form outloud to him. The patient verbalized understanding and signed the form. SW provided him with a copy. GUNNER updated the patient's daughter, Vanessa (ph#[phone]). Vanessa is in agreement to the plan.
[2022-01-06 16:14] VITALS: BP 150/68; PULSE 59; TEMP 97.5
[2022-01-06] MEDS ORDERED: AMOXICILLIN 8751 TAB PO (16:19)
[2022-01-06 19:36] VITALS: BP 154/81; PULSE 61; TEMP 97.7
--- NOTE | 2022-01-06 20:00 | NUR ---
supervisor car and yard notified this nurse that patient needed to move to room 315. Called and gave report to nurse taking patient. Patient transferred to room 315 at this time.
[2022-01-07 00:33] VITALS: BP 149/67; PULSE 65; TEMP 98.1
[2022-01-07 05:00] VITALS: BP 147/80; PULSE 72; TEMP 97.6
[2022-01-07 06:57] LABS: BASO # 0.1 K/mm3 (0.0-0.2); BASO % 0.7 % (0.0-2.0); EOS # 0.2 K/mm3 (0.0-0.7); EOS % 2.7 % (0.0-4.0); GRAN # 6.3 K/mm3 (1.4-6.5); GRAN % 74.8 % (42.2-75.2); LYMPH # 1.1 K/mm3 (1.2-3.4); LYMPH % 12.6 % (20.0-51.0); MEAN CELL VOLUME 88 fl (80.0-100.0); MEAN CORPUSCULAR HEMOGLOBIN 28 pg (27-31); MEAN CORPUSCULAR HGB CONC 31 g/dl (33.0-37.0); MEAN PLATELET VOLUME 10.9 fl (7.4-10.4); MONO # 0.8 K/mm3 (0.1-0.6); MONO % 8.8 % (1.7-9.3); PLATELET COUNT 155 K/mm3 (130-400); REDCELL DISTRIBUTION WIDTH-CV 15.8 % (11.5-14.5)
[2022-01-07 07:13] LABS: CALCIUM 8.8 mg/dL (8.4-10.2); CREATININE, serum 1.8 mg/dL (0.72-1.25); POTASSIUM 3.3 mmol/L (3.5-4.5)
[2022-01-07 07:30] LABS: HEMATOCRIT 35.2 % (42.0-52.0)
[2022-01-07 07:48] VITALS: BP 141/75; PULSE 65; TEMP 97.7
[2022-01-07] MEDS ORDERED: AMOXICILLIN/CLA1 TA1 PO (08:38)
[2022-01-07] MEDS ORDERED: K-DUR20 MEQ PO (08:38)
[2022-01-07 10:14] VITALS: BP 141/75; PULSE 65; TEMP 97.7
--- NOTE | 2022-01-07 10:18 | NUR ---
Garden Equipment Mechanic faxed clinical updates and discharge orders to Zack at [facility]. Transport time set for noon. SW provided transport time to patient and left a message for patient's daughter, Vanessa. Discharge Plan: [facility]
--- NOTE | 2022-01-07 10:42 | NUR ---
CALLED REPORT TO DARIN TO RAN SAUCEDO RN ON THIS PATIENT BEING TRANSFERRED FOR REHABILITATION. ACKNOWLEDGED REPORT. PATIENT WILL BE PICKED UP AT 1200 01/07/22.
--- NOTE | 2022-01-07 12:17 | NUR ---
PATIENT DISCHARGED VIA WHEELCHAIR WITH TRANSPORT. RECEIVED TRANSFER PAPERWORK. PATIENT WAS DRESSED AND ALL BELONGINGS LEFT WITH PATIENTS. INCLUDING BILATERAL HEARINGS AIDS AND GLASSES.
== END 2022-01-07 12:08 | DRG 698 ==
LOC: COL.ER 17:24 → SURG 01-01 01:07 → MEDICAL 01-06 21:30
PROVIDERS: Emergency Medicine; Hospitalist; Nurse Practitioner Family; ADMIT Internal Medicine
DX: T83.511A Infection and inflammatory reaction due to indwelling urethral catheter, initial encounter (principal); A41.9 Sepsis, unspecified organism; I50.43 Acute on chronic combined systolic (congestive) and diastolic (congestive) heart failure; I13.0 Hypertensive heart and chronic kidney disease with heart failure and stage 1 through stage 4 chronic kidney disease, or unspecified chronic kidney disease; I50.22 Chronic systolic (congestive) heart failure; N17.9 Acute kidney failure, unspecified; E87.20 Acidosis, unspecified; N18.4 Chronic kidney disease, stage 4 (severe); E87.0 Hyperosmolality and hypernatremia; N39.0 Urinary tract infection, site not specified; I48.91 Unspecified atrial fibrillation; I73.9 Peripheral vascular disease, unspecified; J44.9 Chronic obstructive pulmonary disease, unspecified; G47.33 Obstructive sleep apnea (adult) (pediatric); E03.9 Hypothyroidism, unspecified; M19.90 Unspecified osteoarthritis, unspecified site; F10.90 Alcohol use, unspecified, uncomplicated; R32 Unspecified urinary incontinence; Z20.822 Contact with and (suspected) exposure to COVID-19; B37.9 Candidiasis, unspecified; I27.20 Pulmonary hypertension, unspecified; I49.5 Sick sinus syndrome; N31.2 Flaccid neuropathic bladder, not elsewhere classified; H26.9 Unspecified cataract; I08.3 Combined rheumatic disorders of mitral, aortic and tricuspid valves; D64.9 Anemia, unspecified; I95.9 Hypotension, unspecified; I77.819 Aortic ectasia, unspecified site; E87.5 Hyperkalemia; E87.8 Other disorders of electrolyte and fluid balance, not elsewhere classified; Y84.6 Urinary catheterization as the cause of abnormal reaction of the patient, or of later complication, without mention of misadventure at the time of the procedure; R73.9 Hyperglycemia, unspecified; Z96.653 Presence of artificial knee joint, bilateral; B95.2 Enterococcus as the cause of diseases classified elsewhere; B96.89 Other specified bacterial agents as the cause of diseases classified elsewhere; Z23 Encounter for immunization; Z79.82 Long term (current) use of aspirin; Z88.1 Allergy status to other antibiotic agents; Z79.01 Long term (current) use of anticoagulants; Z95.4 Presence of other heart-valve replacement; Z88.8 Allergy status to other drugs, medicaments and biological substances; Z95.0 Presence of cardiac pacemaker; Y92.89 Other specified places as the place of occurrence of the external cause
CPT/HCPCS: A4314; J0696; J1940; J2185; J2270; J2405; J2543; J7120

== ENCOUNTER 2022-05-05 20:50 | Inpatient (IN) | payer MEDICARE, BC ==
[~2022-05-05] VITALS: Ht 170.2 cm; Wt 88.1 kg
[~2022-05-05 20:50] MED LIST changes: +AMOXICILLIN/CLA1 TA1 PO; +MACROBID 1100 MG/CAP PO; +PROVENTIL0.09 MG/A1 IH
[2022-05-05 21:31] LABS: BASO % 0.6 % (0.0-2.0); EOS # 0.2 K/mm3 (0.0-0.7); EOS % 2.4 % (0.0-4.0); GRAN # 5.3 K/mm3 (1.4-6.5); GRAN % 73.4 % (42.2-75.2); HEMATOCRIT 37.7 % (42.0-52.0); HEMOGLOBIN 11.3 g/dl (13.5-18.0); LYMPH % 14.1 % (20.0-51.0); MEAN CELL VOLUME 88 fl (80.0-100.0); MEAN CORPUSCULAR HEMOGLOBIN 26 pg (27-31); MEAN CORPUSCULAR HGB CONC 30 g/dl (33.0-37.0); MEAN PLATELET VOLUME 10.5 fl (7.4-10.4); MONO # 0.7 K/mm3 (0.1-0.6); MONO % 9.4 % (1.7-9.3); PLATELET COUNT 161 K/mm3 (130-400); REDCELL DISTRIBUTION WIDTH-CV 22.2 % (11.5-14.5)
[2022-05-05 21:55] LABS: ALBUMIN 3.7 gm/dL (3.4-4.8); BILIRUBIN,TOTAL 0.6 mg/dL (0.2-1.2); CALCIUM 9.4 mg/dL (8.4-10.2); CREATININE, serum 2.93 mg/dL (0.72-1.25); POTASSIUM 4.4 mmol/L (3.5-4.5); TOTAL PROTEIN 7.6 gm/dL (6.2-8.1)
[2022-05-05 22:21] LABS: COLLECTION METHOD CLEAN CATCH
[2022-05-05 22:25] LABS: URINE APPEARANCE Hazy (CLEAR/HAZY); URINE BLOOD 2+ (NEGATIVE); URINE COLOR Yellow (YELLOW); URINE GLUCOSE Negative (NEGATIVE); URINE KETONE Negative (NEGATIVE); URINE NITRATE Negative (NEGATIVE); URINE PROTEIN(semi-quant) 2+ (NEGATIVE); URINE UROBILINOGEN 0.2 E.U/dL (0.2-1.0)
[2022-05-05 22:27] LABS: MUCOUS Present (NOT PRESENT); SQUAMOUS EPITHELIAL 0-2 /hpf (0-10); URINE BACTERIA None Seen /hpf (NONE SEEN); URINE RBC 20-50 /hpf (0-2)
[2022-05-05 23:07] VITALS: BP 137/65; PULSE 66; TEMP 97.6
--- NOTE | 2022-05-05 23:07 | NUR ---
pt brought to room from ED. ambulated to bed w minimal assistance. pedersen in place. admission assessment complete.
[2022-05-05] MEDS ORDERED: KLOR-CON M2020 MEQ PO (23:27)
[2022-05-05] MEDS ORDERED: ASPIRIN 81M81 MG/TA2 PO (23:28)
[2022-05-05] MEDS ORDERED: DEMADEX 20MG20 M1 PO (23:28)
[2022-05-05] MEDS ORDERED: ELIQUIS 2.5 PO (23:29)
[2022-05-05] MEDS ORDERED: SINGULAIR 110 MG/TAB PO (23:30)
[2022-05-05] MEDS ORDERED: FLOMAX 0.40.4 MG/CAP PO (23:30)
[2022-05-06] VITALS (7 sets, daily range): BP systolic 105–137; BP diastolic 61–79; PULSE 60–68; TEMP 97.3–97.9
[2022-05-06 06:53] LABS: BASO % 0.6 % (0.0-2.0); EOS # 0.2 K/mm3 (0.0-0.7); EOS % 2.7 % (0.0-4.0); GRAN # 4.8 K/mm3 (1.4-6.5); GRAN % 73.3 % (42.2-75.2); LYMPH # 0.8 K/mm3 (1.2-3.4); LYMPH % 12.4 % (20.0-51.0); MEAN CELL VOLUME 87 fl (80.0-100.0); MEAN CORPUSCULAR HGB CONC 30 g/dl (33.0-37.0); MEAN PLATELET VOLUME 10.7 fl (7.4-10.4); MONO # 0.7 K/mm3 (0.1-0.6); MONO % 10.5 % (1.7-9.3); PLATELET COUNT 135 K/mm3 (130-400); REDCELL DISTRIBUTION WIDTH-CV 21.8 % (11.5-14.5)
[2022-05-06 06:55] LABS: HEMATOCRIT 33.2 % (42.0-52.0); HEMOGLOBIN 9.9 g/dl (13.5-18.0); MEAN CORPUSCULAR HEMOGLOBIN 26 pg (27-31)
[2022-05-06 07:04] LABS: CALCIUM 8.9 mg/dL (8.4-10.2); CREATININE, serum 2.69 mg/dL (0.72-1.25); MAGNESIUM 2.3 mg/dL (1.6-2.6); POTASSIUM 3.8 mmol/L (3.5-4.5)
--- NOTE | 2022-05-06 09:10 | NUR ---
Pt. sitting up in bed. Pt. is A&OX3, assessment complete. INT to rt. ac patent. Pt. denies pain. Pollock catheter to DD, yellow urine noted. Pt. denies further needs, call light within reach.
--- NOTE | 2022-05-06 09:23 | NUR ---
SW met with patient to complete intake. Patient reports that he lives at home alone in [place]. He has a [facility] HH nurse come out to check on him and give manage his medications every Wednesday. Patient reports that he is mostly independent with his ADL's and somewhat indpendent with his IADL's. He admits to not really driving anymore and he get meal on wheels for his meals. Patient utilizes a FWW to assist with mobility at home. He utilizes a CPAP at night that is managed through [facility]. PCP is Dr. Vasques and utilizes [facility]. Patient does have a DPOA-HC established and a copy can be located in his EMR listing both his daughter Vanessa and apolinar Pemberton. Phone call made to Gauri at [facility] and informed her that PT is recommending home with HH vs SNF. Agreement made to faxed Gauri that patients referral should he need SNF. Referral sent. Discharge plan: Home with HH vs. [facility] SNF
--- NOTE | 2022-05-06 15:38 | NUR ---
Initial visit; Patient thanked Office Support Assistant for looking in on him and asking him how he was doing. He said he is "doing ok" and had no other needs today.
--- NOTE | 2022-05-06 20:30 | NUR ---
PT RESTING IN BED. O2 2L NC FOR SLEEP APNEA. INT NEEDLE TO LT F/A. SITE RED. FLUSHES WELL WITH NO PAIN OR SWELLING. PT C/O ITCHING TO LT UPPER HIP. NO RASH NOTED. LOTION APPLIED. SEE SHIFT ASSESSMENT FOR SKIN. F/C DRAINING CLEAR YELLOW URINE IN SUFFICIENT AMTS. BILAT LOWER LEGS +3 EDEMA, WARM AND REDDISH IN COLOR. PT REPORTS NORMAL FOR HIM. TAKES LASIX. CALL LIGHT IN REACH. BED ALARM SET.
--- NOTE | 2022-05-07 03:21 | NUR ---
ASSISTED UP TO RECLINER MOD 1 ASSIST. O2 2L NC. FC DRAINING CLEAR YELLOW URINE IN SUFFICIENT AMTS. CALL LIGHT IN REACH.
[2022-05-07 03:58] VITALS: BP 128/68; PULSE 64; TEMP 97.7
[2022-05-07 07:19] VITALS: BP 129/67; PULSE 63; TEMP 97.9
[2022-05-07 07:36] LABS: BASO % 0.3 % (0.0-2.0); EOS # 0.2 K/mm3 (0.0-0.7); EOS % 2.9 % (0.0-4.0); GRAN # 5.4 K/mm3 (1.4-6.5); GRAN % 73.5 % (42.2-75.2); HEMOGLOBIN 10.6 g/dl (13.5-18.0); LYMPH # 0.9 K/mm3 (1.2-3.4); LYMPH % 12.7 % (20.0-51.0); MEAN CELL VOLUME 88 fl (80.0-100.0); MEAN CORPUSCULAR HEMOGLOBIN 26 pg (27-31); MEAN CORPUSCULAR HGB CONC 30 g/dl (33.0-37.0); MEAN PLATELET VOLUME 9.7 fl (7.4-10.4); MONO # 0.7 K/mm3 (0.1-0.6); MONO % 10.1 % (1.7-9.3); PLATELET COUNT 148 K/mm3 (130-400); RED BLOOD COUNT 4.08 M/mm3 (4.20-5.60); REDCELL DISTRIBUTION WIDTH-CV 21.8 % (11.5-14.5)
[2022-05-07 07:37] LABS: HEMATOCRIT 35.9 % (42.0-52.0)
[2022-05-07 07:54] LABS: CALCIUM 8.8 mg/dL (8.4-10.2); CREATININE, serum 2.56 mg/dL (0.72-1.25); POTASSIUM 3.6 mmol/L (3.5-4.5)
--- NOTE | 2022-05-07 09:00 | NUR ---
Pt. sitting up in chair at this time. Pt. is A&OX3, assessment complete. INT to rt. forearm patent. Pt. denies pain or other needs. call light within reach.
[2022-05-07 11:44] VITALS: BP 135/71; PULSE 61; TEMP 98.3
--- NOTE | 2022-05-07 15:05 | NUR ---
SW met with the patient to update about [facility]'s acceptance and PT's recommendation of SNF vs home health. The patient states that his daughter, Vanessa, will be visiting him tonight and he would like to talk to her first about the options. SW then contacted the patient's daughter, Vanessa, to update. Vanessa confirmed that she will be arriving to the hospital soon. She would like to talk to the patient as well and will then contact this SW back with their decision. GUNNER faxed updates to [facility].
[2022-05-07 16:05] VITALS: BP 121/57; PULSE 61; TEMP 98
[2022-05-07 19:50] VITALS: BP 131/82; PULSE 64; TEMP 97.7
--- NOTE | 2022-05-07 21:47 | NUR ---
SHIFT REPORT FROM ARSLAN MOREIRA. PATIENT IN BED ON ROOM ENTRY. HS MEDS PER EMAR. DENIES PAIN. DICKINSON TO DD WITH CLEAR YELLOW OUTPUT.
[2022-05-07 23:42] VITALS: BP 119/66; PULSE 65; TEMP 97.6
[2022-05-08 03:50] VITALS: BP 111/62; PULSE 59; TEMP 97.6
[2022-05-08 06:37] LABS: BASO % 0.5 % (0.0-2.0); EOS # 0.2 K/mm3 (0.0-0.7); EOS % 3.3 % (0.0-4.0); GRAN # 4.2 K/mm3 (1.4-6.5); GRAN % 68.3 % (42.2-75.2); LYMPH # 0.9 K/mm3 (1.2-3.4); LYMPH % 14.7 % (20.0-51.0); MEAN CELL VOLUME 88 fl (80.0-100.0); MEAN CORPUSCULAR HGB CONC 30 g/dl (33.0-37.0); MEAN PLATELET VOLUME 10.2 fl (7.4-10.4); MONO # 0.8 K/mm3 (0.1-0.6); MONO % 12.7 % (1.7-9.3); PLATELET COUNT 137 K/mm3 (130-400); RED BLOOD COUNT 3.65 M/mm3 (4.20-5.60); REDCELL DISTRIBUTION WIDTH-CV 21.4 % (11.5-14.5)
[2022-05-08 06:39] LABS: HEMATOCRIT 32.1 % (42.0-52.0); HEMOGLOBIN 9.6 g/dl (13.5-18.0); MEAN CORPUSCULAR HEMOGLOBIN 26 pg (27-31)
[2022-05-08 06:56] LABS: CALCIUM 8.5 mg/dL (8.4-10.2); CREATININE, serum 2.29 mg/dL (0.72-1.25); POTASSIUM 3.5 mmol/L (3.5-4.5)
--- NOTE | 2022-05-08 07:10 | NUR ---
Received shift report from the night nurseNaye RN
[2022-05-08 07:14] VITALS: BP 131/97; PULSE 63; TEMP 98.3
--- NOTE | 2022-05-08 08:11 | NUR ---
Patient up in the recliner by the bed. Patient alert and oriented. Patient reports of occasiona shortness of breath. Patient is currently on 02 2L/NC in use and does not appear to be in distress. Noted edematous on bilateral lower extremities on asssessment. Patient does have open blisters on right barragan. Patient has no IV site. Patient does not needs at this time. See process intervention for notes.
[2022-05-08] MEDS ORDERED: ZYRTEC 10MG10 MG PO (08:44)
[2022-05-08] MEDS ORDERED: SINGULAIR 110 MG/TAB PO (08:50)
[2022-05-08] MEDS ORDERED: MULTI VITAMINS1 TAB PO (08:50)
[2022-05-08] MEDS ORDERED: LEVOXYL0.05 MG PO (08:50)
[2022-05-08] MEDS ORDERED: LEVAQUIN 750MG750 M1 PO (08:50)
[2022-05-08] MEDS ORDERED: KLOR-CON M2020 MEQ PO (08:51)
[2022-05-08] MEDS ORDERED: DEMADEX 20MG20 M1 PO (08:51)
[2022-05-08] MEDS ORDERED: ASPIRIN 81M81 MG/TA2 PO (08:51)
[2022-05-08] MEDS ORDERED: FLOMAX 0.40.4 MG/CAP PO (08:53)
[2022-05-08] MEDS ORDERED: CORDARONE200 MG/TAB PO (08:53)
[2022-05-08] MEDS ORDERED: ELIQUIS 2.5 PO (08:53)
--- NOTE | 2022-05-08 09:19 | NUR ---
The patient's daughter, Vanessa, left GUNNER a voicemail. She states that she talked to the patient and he would like to go over to [facility] at [facility] to get a little stronger. The clinical team is ready to discharge the patient. GUNNER notified and faxed updates to Gauri at [facility]. GUNNER met with the patient and presented and read the IM form outloud to him. The patient's daughter, Vanessa, was on speaker phone. The patient verbalized understanding and agreement to discharge today. He signed the form and declined a copy. The patient is to discharge today, 05/08, to [facility] for a skilled stay. Transportation was scheduled at 1100, via [facility]. GUNNER informed the patient's daughter and RN of the transport time. No additional needs at this time.
--- NOTE | 2022-05-08 09:30 | NUR ---
Nasal swab performed and patient tolerated well.
--- NOTE | 2022-05-08 12:08 | NUR ---
Patient's pedersen bag changed to leg bag to get dress and transport to [facility]. Telemonitor discontinued. Extra pedersen catheter bag given to patient to take to facility. Report given to nurse, Laya and has no other question. Patient transported to [facility] at 1140.
== END 2022-05-08 11:40 | DRG 698 ==
LOC: COL.ER 20:50 → SURG 21:29
PROVIDERS: Emergency Medicine; Internal Medicine; Student in an Organized Health Care Education/Training Program; ADMIT Internal Medicine
DX: T83.511A Infection and inflammatory reaction due to indwelling urethral catheter, initial encounter (principal); I50.43 Acute on chronic combined systolic (congestive) and diastolic (congestive) heart failure; I13.0 Hypertensive heart and chronic kidney disease with heart failure and stage 1 through stage 4 chronic kidney disease, or unspecified chronic kidney disease; J96.11 Chronic respiratory failure with hypoxia; Z16.35 Resistance to multiple antimicrobial drugs; Z66 Do not resuscitate; Y84.6 Urinary catheterization as the cause of abnormal reaction of the patient, or of later complication, without mention of misadventure at the time of the procedure; I27.20 Pulmonary hypertension, unspecified; E03.9 Hypothyroidism, unspecified; M19.90 Unspecified osteoarthritis, unspecified site; G47.33 Obstructive sleep apnea (adult) (pediatric); Z96.653 Presence of artificial knee joint, bilateral; N18.30 Chronic kidney disease, stage 3 unspecified; N40.1 Benign prostatic hyperplasia with lower urinary tract symptoms; R33.8 Other retention of urine; N31.2 Flaccid neuropathic bladder, not elsewhere classified; R13.10 Dysphagia, unspecified; I07.1 Rheumatic tricuspid insufficiency; J44.9 Chronic obstructive pulmonary disease, unspecified; F10.90 Alcohol use, unspecified, uncomplicated; I48.91 Unspecified atrial fibrillation; Y92.89 Other specified places as the place of occurrence of the external cause; Z95.4 Presence of other heart-valve replacement; Z95.0 Presence of cardiac pacemaker; Z79.01 Long term (current) use of anticoagulants; Z88.1 Allergy status to other antibiotic agents; Z88.8 Allergy status to other drugs, medicaments and biological substances; Z79.82 Long term (current) use of aspirin; Z79.890 Hormone replacement therapy; Z23 Encounter for immunization
CPT/HCPCS: J1940; J1956; J2185